=== PATIENT | male | born 1945 | race Caucasian/White ===

== ENCOUNTER 2019-04-16 14:54 | Outpatient (CLI) | payer MEDICARE, SELFPAY ==
--- NOTE | 2019-04-16 15:01 | XR_ITS ---
WS: [id number] LEFT KNEE: 3 VIEW(S) TECHNIQUE: AP, oblique(s) and lateral. HISTORY: PAIN IN LT KNEE COMPARISON: None available. No fracture or dislocation. Prior LEFT knee arthroplasty. No lucency around the arthroplasty. No joint effusion. No soft tissue abnormality. XR/XR knee LT 3V* [id number] IMPRESSION: Prior LEFT knee arthroplasty. No complications.
--- NOTE | 2019-04-16 15:01 | XR_ITS ---
WS: [id number] RIGHT KNEE: 3 VIEW(S) TECHNIQUE: AP, oblique(s) and lateral. HISTORY: PAIN IN RIGHT KNEE COMPARISON: None available. No fracture or dislocation. Mild narrowing of the medial compartment with small osteophytes. No joint effusion. No soft tissue abnormality. XR/XR knee RT 3V* [id number] IMPRESSION: Mild medial compartment osteoarthritis.
== END 2019-04-16 14:55 | disposition home or self-care (01) ==
PROVIDERS: Family Provider Physician Assistant; PCP Nurse Practitioner Family; Visit Provider Nurse Practitioner
DX: M17.11 Unilateral primary osteoarthritis, right knee (principal); Z96.652 Presence of left artificial knee joint
CPT/HCPCS: 73562

== ENCOUNTER 2019-07-12 12:18 | Outpatient (CLI) | payer MEDICARE, SELFPAY ==
[2019-07-12 12:48] LABS: Basophils # 0.1 10^3/uL (0.0-0.1); Basophils % 0.4 %; Eosinophils # 0.3 10^3/uL (0.0-0.8); Eosinophils % 1.7 %; Hematocrit 41.7 % (42.0-52.0); Hemoglobin 13.3 g/dL (11.7-16.6); Lymphocytes # 2.1 10^3/uL (0.8-4.8); Lymphocytes % 13.4 %; Mean Corpuscular HGB Conc 31.9 g/dL (30.0-36.0); Mean Corpuscular Hemoglobin 28.5 pg (28.0-34.0); Mean Corpuscular Volume 89.5 fL (80-94); Mean Platelet Volume 10.1 fL (7.4-10.4); Monocytes # 1.3 10^3/uL (0.2-0.9); Monocytes % 8.1 %; Neutrophils # 11.7 10^3/uL (1.8-7.7); Neutrophils % 75.8 %; Nucleated Red Blood Cells % 0 %; Platelet Count 336 10^3/cmm (130-400); Red Blood Count 4.66 10^6/uL (4.1-5.3); Red Cell Distribution Width 14.1 % (12.1-15.1); White Blood Count 15.4 10^3/uL (4.0-10.0)
[2019-07-12 13:01] LABS: Alanine Aminotransferase 23 U/L (0-41); Albumin Level 4.1 g/dL (3.5-5.2); Alkaline Phosphatase 71 IU/L (40-130); Aspartate Amino Transferase 26 U/L (0-40); Blood Urea Nitrogen 35 mg/dL (8-23); Carbon Dioxide 26 mmol/L (22-29); Chloride 98 mmol/L (98-107); Globulin 3.2 g/dL (1.3-4.6); Glucose 144 mg/dL (65-115); Osmolality Calculated 288 mOsm/kg (285-295); Sodium 139 mmol/L (136-145); Total Bilirubin 0.3 mg/dL (0.15-1.2); Total Protein 7.3 g/dL (6.6-8.7)
[2019-07-13 16:11] LABS: Alternaria Alternata (M6) Ige <0.10 kU/L; Alternaria Class 0; Bermuda Class 0; Bermuda Grass (G2) Ige <0.10 kU/L; Cat Dander (E1) Ige 0.16 kU/L; Cat Dander Class 0/1; Common Ragweed (Short) (W1) Ig 0.36 kU/L; D. Farinae Class 2; Dermatophagoides Class 1; Dermatophagoides Farinae (D2) 0.73 kU/L; Dermatophagoides Pteronyssinus 0.41 kU/L; Dog Dander (E5) Ige 0.43 kU/L; Dog Dander Class 1; Elm (T8) Ige <0.10 kU/L; Elm Class 0; English Plantain (W9) Ige <0.10 kU/L; English Plantain Class 0; House Dust (Greer) (H1) Ige <0.10 kU/L; House Dust (Hollister- Stier) 0.12 kU/L; House Dust Class 0; House Dust Class 0/1; Immunoglobulin E 381 kU/L (<OR=114); Immunoglobulin E 419 kU/L (<OR=114); Johnson Grass (G10) Ige <0.10 kU/L; Johnson Grass Cl 0; June Grass Class 0; June Grass(Kentucky Blue) (G8) <0.10 kU/L; Lamb'S Quarters (Goose Foot) <0.10 kU/L; Lamb'S Quarters Class 0; Maple (Box Elder) (T1) Ige <0.10 kU/L; Maple Class 0; Meadow Fescue (G4) Ige <0.10 kU/L; Meadow Fescue Class 0; Mucor Racemosus Class 0; Oak (T7) Ige <0.10 kU/L; Oak Class 0; Orchard Grass (Cocksfoot) (G3) <0.10 kU/L; Penicillium Class 0; Penicillium Notatum (M1) Ige <0.10 kU/L; Perennial Rye Grass (G5) Ige <0.10 kU/L; Perennial Rye Grass Class 0; Ragweeed Class 1; Rough Marsh Elder (W16) Ige <0.10 kU/L; Rough Marsh Elder Class 0; Sweet Vernal Class 0; Sweet Vernal Grass (G1) Ige <0.10 kU/L; Timothy Grass (G6) Ige <0.10 kU/L; Timothy Grass Class 0
[2019-07-16 16:17] LABS: Aspergillus Fumigatus, Igg Ab, 7.2 mg/L (<=102)
== END 2019-07-12 12:19 | disposition home or self-care (01) ==
PROVIDERS: Family Provider Physician Assistant; PCP Nurse Practitioner Family; Visit Provider Internal Medicine Critical Care Medicine
DX: J45.909 Unspecified asthma, uncomplicated (principal); R06.02 Shortness of breath
CPT/HCPCS: 36415; 80053; 82785; 85025; 86003

== ENCOUNTER 2019-07-20 09:50 | Outpatient (CLI) | payer MEDICARE, SELFPAY ==
--- NOTE | 2019-07-20 10:15 | CT_ITS ---
WS: [id number] CT CHEST TECHNIQUE: Noncontrast CT of the chest with coronal and sagittal reformatted images. CLINICAL INFORMATION: Shortness of breath COMPARISON: None. DLP: 1089.[address] scans at [facility] use at least one of these dose optimization techniques: automat ed exposure control; mA and/or kV adjustment per patient size (includes targeted exams where dose is matched to clinical indication); or iterative reconstruction. FINDINGS: Mild chronic emphysematous changes. No acute pulmonary infiltrates. No consolidation or pleural fluid . Slight atelectasis in the lung bases. 4 mm noncalcified NODULE IN THE RIGHT MIDDLE LOBE. Small amou nt of fibrosis posterior medially in the lower lobes. Calcified granuloma left lower lobe. No mediastinal or hilar lymphadenopathy. Aortic calcification. Coronary calcification. Mild diffuse f atty infiltration of the liver. Normal GE junction. Adrenal glands are normal. Bilateral renal cortic al atrophy. No axillary lymphadenopathy. Hypertrophic changes thoracic spine. CT/CT chest wo con [id number] IMPRESSION: 1. Mild chronic emphysematous changes. No acute pulmonary infiltrates. 2. Noncalcified 4 mm nodule right middle lobe. Recommend 6 month follow-up. 3. No mediastinal or hilar lymphadenopathy.
== END 2019-07-20 09:51 | disposition home or self-care (01) ==
PROVIDERS: Family Provider Nurse Practitioner Family; PCP Nurse Practitioner Family; Visit Provider Internal Medicine Critical Care Medicine
DX: R06.02 Shortness of breath (principal); R91.1 Solitary pulmonary nodule
CPT/HCPCS: 71250

== ENCOUNTER 2020-06-25 14:17 | Outpatient (CLI) | payer MEDICARE, SELFPAY ==
--- NOTE | 2020-06-25 15:21 | MR_ITS ---
WS: [id number] MRI RIGHT SHOULDER HISTORY: PAIN IN RIGHT SHOULDER COMPARISON: Radiograph 05/07/2020 TECHNIQUE: Multiplanar sequences of the shoulder joint are submitted. Severe soft tissue in hypertrophic bone changes at the AC joint with encroachment upon the supraspina tus muscle and tendon. There is a large amount of edema surrounding the AC joint and through the AC l igament. No os acromion. There is a small osseous fragment at the AC joint which is well-corticated. Biceps tendon is not identified at the bicipital groove. Large full-thickness rotator cuff tendon tears involving the supraspinatus, infraspinatus and subscap ularis tendons. There is marked muscle atrophy without edema in the muscles. Most significant involve ment of the supraspinatus and infraspinatus muscles. There is a large amount of fluid in the subscapu autumn and subcoracoid bursa. Humeral head is high riding abutting the undersurface of the acromion. There is a large soft tissue defect filled with edema extending from the AC joint or torn rotator cuf f to the glenoid. Torn coracohumeral ligament. There is a large amount of soft tissue edema extending into the muscles and soft tissues of the proximal humerus along the biceps muscle. Loss of cartilage over the humeral head with thinning of the cartilage. Abnormal signal within the la rene probably degenerative in etiology. MR/MR shoulder RT wo con* [id number] IMPRESSION: 1. Complete full-thickness tears involving the supraspinatus and infraspinatus tendons with edema and atrophy. 2. Large amount of fluid in the subscapularis recess and subcoracoid bursa. Matthews bscapularis tendon may be intact. 3. Biceps tendon not identified in the bicipital groove. Probably torn and ret racted. 4. High riding humeral head. 5. Severe AC joint arthritis. 6. Acute soft tissue defect extending from the AC joint inferiorly through the rotator cuff to the humeral head is probably posttraumatic soft tissue injury with extensive involvement of the rotator cuff and adjacent soft tissues. 7. Diffuse abnormal labrum. 8. Large amount of edema and soft tissue injury involving the proximal humerus along the biceps muscle.
== END 2020-06-25 14:18 | disposition home or self-care (01) ==
PROVIDERS: PCP Nurse Practitioner Family; Visit Provider Orthopaedic Surgery
DX: R60.0 Localized edema (principal); M75.121 Complete rotator cuff tear or rupture of right shoulder, not specified as traumatic; M13.811 Other specified arthritis, right shoulder
CPT/HCPCS: 73221

== ENCOUNTER → 2020-07-09 06:32 | Day surgery (SDC) | payer MEDICARE, SELFPAY | PROVIDERS: PCP Nurse Practitioner Family; Visit Provider Orthopaedic Surgery | DX: Z01.818 Encounter for other preprocedural examination (principal); M67.911 Unspecified disorder of synovium and tendon, right shoulder | CPT/HCPCS: 93005 ==

== ENCOUNTER 2020-07-09 09:09 | Outpatient (CLI) | payer MEDICARE, SELFPAY ==
--- NOTE | 2020-07-09 09:23 | CT_ITS ---
WS: [id number] NONCONTRAST CT OF THE RIGHT SHOULDER TECHNIQUE: Noncontrast CT of the right shoulder with coronal and sagittal reformatted images. CLINICAL INFORMATION: M75.101 - Unspecified rotator cuff tear or rupture of rig... COMPARISON: MRI June 24, 2020 DLP: [address] scans at [facility] use at least one of these dose optimization techniques: automat ed exposure control; mA and/or kV adjustment per patient size (includes targeted exams where dose is matched to clinical indication); or iterative reconstruction. FINDINGS: Normal anatomic alignment. No acute fractures. Moderate degenerative arthritis AC joint with loss of the subacromial space. Moderate narrowing at the glenohumeral articulation. Humeral head and neck are normal without acute fracture. Normal scapula. Normal glenoid. No dislocation. Distal clavicle is no rmal in appearance. Persistent soft tissue edema about the glenohumeral joint with small joint effusion. High-grade full- thickness tears involving the supraspinatus and infraspinatus as described on the recent MRI. Biceps tendon absent from the bicipital groove likely torn. Humeral shaft is normal in appearance. Visualized right ribs are normal in appearance. Emphysematous changes in the partially visualized rig ht lung. CT/CT shoulder RT wo con* [id number] IMPRESSION: 1. No visualized fractures. 2. Degenerative arthritis AC joint with loss of subacromial space. 3. Full-thickness tears involving the supraspinatus and infraspinatus as descr ibed on the recent MRI. 4. Biceps tendon absent from the bicipital groove. 5. Normal bony scapula and glenoid. 6. Persistent soft tissue edema about the shoulder capsule with small joint ef fusion.
== END 2020-07-09 09:10 | disposition home or self-care (01) ==
PROVIDERS: PCP Nurse Practitioner Family; Visit Provider Orthopaedic Surgery
DX: M75.101 Unspecified rotator cuff tear or rupture of right shoulder, not specified as traumatic (principal); M19.011 Primary osteoarthritis, right shoulder; Z20.822 Contact with and (suspected) exposure to COVID-19
CPT/HCPCS: 73200; 87635

== ENCOUNTER 2020-07-15 13:18 | Inpatient (IN) | payer MEDICARE, SELFPAY ==
[2020-07-09 08:20] VITALS: BMI 34.2
--- NOTE | 2020-07-09 08:37 | ECG_ITS ---
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 Measurements Intervals [place] Rate: 74 P: 9 AL: 144 QRS: -29 QRSD: 96 T: 69 QT: 379 QTc: 421 Interpretive Statements SINUS RHYTHM BORDERLINE LEFT AXIS DEVIATION [QRS AXIS < -20] No previous ECG available for comparison Electronically Signed On 07-13-2020 12:26:41 CDT by Yara Pruitt M.D. [id number]
--- NOTE | 2020-07-09 09:41 | ANES.PREANE2 ---
Pre-Anesthetic Assessment Pre-Anesthetic Assessment: Height/Weight: Height 1.73 m Weight 102.058 kg Preop Diagnosis: Right rotator cuff tear Proposed Procedure: Operation Date: 07/15/20 07:00 Proposed Procedures p Total Reverse Shoulder Arthroplasty 59874 M75.101(Right) - Sebastian Taylor MD Was Beta Erica taken within 24 hours: N/A Was Clonidine taken within 24 hours: N/A Social: Social History: No alcohol and No tobacco Exam: Pre-Anes Outpt Exam: alert, oriented x 3, clear to auscultation bilaterally and regular rate & rhythm Airway: Submandibular: WNL Cervical ROM: WNL MP: 2 Pulmonary: Pulmonary: COPD CV/HEM: CV/HEM: HTN GI: GI: GERD Metabolic: Metabolic: Morbid obesity and Thyroid Anesthetic Plan: ASA status: 3 Anesthesia: General and Regional (specify below) (Interscalene nerve blk) Risk of > 500 ml blood loss (7ml/kg in children): No PFSH Anesthesia PFSH: Medical History Asthma Carotid artery disease CKD (chronic kidney disease) Colon polyps Gout HTN (hypertension) Hypothyroidism Prostate cancer Type 2 diabetes mellitus Surgical History H/O hand surgery H/O prostatectomy H/O shoulder surgery History of knee replacement Hx of cataract surgery Family History Father Heart disease Social History Smoking and tobacco status: former smoker Quit status (tobacco): has quit using tobacco Year quit tobacco: 2018 - 0.5 PPD x 15 Years Alcohol intake: current Alcohol intake frequency: 0-2 Drinks per Day Alcohol type: hard liquor Lives independently: Yes Household members: spouse Marital status: service: No Current occupational status: retired History of recent travel: No Current gender identity: Male Data Anesthesia Cardiac Studies: No Data to Display
[2020-07-15] VITALS (22 sets, daily range): BP systolic 124–208; BP diastolic 62–96; PULSE 65–84; RESP 14–19; TEMP 36.1–36.9; O2SAT 92–99
[2020-07-15] MEDS: acetaminophen 500 mg Tablet 1000 MG PO ×2 (08:16→17:56)
[2020-07-15] MEDS: oxyCODONE 20 mg ER (12 HR) Tablet PO (08:16)
[2020-07-15] MEDS: gabapentin 300 mg Capsule PO (08:16)
[2020-07-15] MEDS: CELEcoxib 200 mg Capsule 400 MG PO (08:16)
[2020-07-15] MEDS: sodium chloride 0.9% 1,000 ML 30 ML IV (08:19)
--- NOTE | 2020-07-15 08:39 | P.ANESUD_ITS ---
Pre-Anesthetic Update Pre-Anesthetic Assessment: Date of Surgery/Procedure: 07/15/20 Preop Raisa gnosis: Right rotator cuff tear Proposed Procedure: Operation Date: 07/15/20 09:00 Proposed Procedures p Total Reverse Shoulder Arthroplasty 61549 M75.101(Right) - Sebastian Taylor MD Any changes to Pre-Anesthetic Assessment?: No Last Intake: Intake Last Liquid Date 07/14/20 Last Liquid Time 17:00 Last Solid Date 07/14/20 Last Solid Time 17:00 Vitals: Temperature 98.3 F 07/15/20 07:59 Temperature Source Tympanic 07/15/20 07:59 Pulse Rate 79 07/15/20 07:59 Pulse Rhythm 07/15/20 07:49 Pulse Strength 3+ Normal 07/15/20 07:49 Respiratory Rate 18 07/15/20 07:59 Blood Pressure 166/92 07/15/20 07:59 Blood Pressure Isabel n 116 07/15/20 07:59 Pulse Oximetry 98 07/15/20 07:59 Oxygen Delivery Me thod 07/15/20 07:59 Exam: Pre-Anes Outpt Exam: alert, oriented x 3, clear to auscultation bilaterally and regular rate & rhythm Cardiac Studies: No Data to Display
--- NOTE | 2020-07-15 08:39 | ANES.PROC ---
Anesthesia Procedures Procedure/Date: 07/15/20 Nerve Block ^: Nerve Block 1: Main Anesthesia: general anesthesia Time Out Performed: Yes Consent: requested by attending/covering physician, from patient, risks and benefits reviewed and patient agrees to proceed Nerve block location: interscalene (R) Anesthesia monitors applied: pulse oximetry, BP cuff and oxygen Nerve block position: semi sitting Anesthetic Used: ropivicaine 0.5% and with decadron (4 mg) Amount of anesthesia used (mL): 20 Ultrasound used to: recognize landmarks, visualize and ID brachial plexus and visualize and ID interscalene groove Nerve Stimulator Used?: No Interscalene/Femoral BLK: other needle (2 payuk used for position and in plane approach), visualize local anesthetic spread and no vascular puncture identified Injection: neg aspiration of heme Patient Tolerated Procedure: well and no complications Complications: none
--- NOTE | 2020-07-15 09:47 | W.PM.OPSUD ---
Surgery/Procedure H&P Update DATE OF PROCEDURE: July 15, 2020 DATE H&P PERFORMED: 06/30/20 PREOP DIAGNOSIS: Right rotator cuff tear PLANNED PROCEDURE: Operation Date: 07/15/20 09:00 Proposed Procedures p Total Reverse Shoulder Arthroplasty 41060 M75.101(Right) - Sebastian Taylor MD
[2020-07-15] MEDS: tranexamic acid 1,000 mg/10mL SDV 1000 MG IRRIGATION (10:42)
--- NOTE | 2020-07-15 12:42 | PM.OP ---
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 The patient was taken to the operating room and given a general anesthesia. They were given 2 g of Ancef. A Gill stand was covered and use to support support the arm A timeout was performed. A 10 cm long incision was made over the deltopectoral groove and dissection carried out with a scalpel blade to the deltopectoral interval. The cephalic vein was identified and retracted laterally. The biceps was secured with 2 Ethibond sutures to the pectoralis muscle and then divided just proximal with electrocautery. Digital dissection was accomplished to free lesions beneath the deltoid and beneath the coracobrachialis musculature. An Robert medium tissue protector was used to retract the pectoralis major and the deltoid. Utilizing cautery the subscapularis was released using the remaining biceps stump as a guide anteriorly in full-thickness with the capsule and freed distally at the level of the anterior humeral circumflex vessels. The glenohumeral joint include bending externally rotated and dislocated anteriorly. A freehand cut was made with the saw at the level of the articular cartilage with approximately 30 degrees of retroversion. The proximal humerus was then broached and prepared for a 5 Aequalis Ascend Flex humal stem and covered with a protective plate.. Utilizing electrocautery the glenoid was exposed circumferentially. The centering guide was used to place the central guidepin and the glenoid ream down to sclerotic bone. The pin was placed in slight inferior angulation to remove approximately 5 degrees of inferior glenoid bone. A 29 mm Tornier Aequalis PerFORM REversed glenoid baseplate was then secured in place with a central 40 mm screw, a superior locking 34 mm screw, an inferior locking 30 mm screw, an anterior 22 mm screw and a posterior 264mm screw. A standard 42 mm Aequalis perFORM ReversedGlenosphere was then placed. A trial reduction with a 42 mm reversed insert provided adequate stability. The final size 7 Aequalis Awscend Flex humal stem was press-fit into place with a 0mm reversed tray. The Flex Shoulder system 42 mm +6 mm insert was placed and the shoulder reduced with a stable reduction. The subscapularis was secured with the 3 locking ultratape sutures through the tendon that were passed through 4 drill holes from the bicipital groove exiting the greater tuberosity. The sutures were then brought through a 4-hole mini frag plate on the tuberosity and secured which tightly laura the subscapularis over the lesser tuberosity with the arm held in 30 degrees of external rotation. The sutures were then doubled over in a free needle back through the tendon. The wound was irrigated with a solution of 100 cc of saline with 1 g of tranexamic acid and 80 mg of gentamicin. The deltopectoral interval was closed with 0 Vicryl. The subcutaneous tissues were closed with 2-0 Stratafix. The skin was closed with a running 4-0 Stratafix. Sterile dressings were applied. The patient was placed in a sling extubated and taken to recovery room in stable condition. 1) Tornier Aequalis Ascend Flex 5 stem 2) Flex Shoulder System reversed tray +0mm 3) Flex Shoulder System 42 mm +6 mm reversed insert 4) Aequalis PerFORM Reversed 29 standard baseplate 5) Aequalis perForm Reversed 42 mm standard glenosphere 6) Glenoid screws: central 40 mm, superior 34 mm inferior 30 mm, anterior 22 mm, posterior 26 mm
--- NOTE | 2020-07-15 12:59 | XRR_ITS ---
PROCEDURE INFORMATION: Exam: XR Right Shoulder Exam date and time: 07/15/2020 1:03 PM Age: 75 years old Clinical indication: Device placement; Other: Right tsa; Prior surgery; Surgery date: Post-operative (0-2 days) TECHNIQUE: Imaging protocol: XR Right shoulder. Views: 2 or more views. COMPARISON: CT shoulder RT wo con* [id number] 07/09/2020 10:11 AM FINDINGS: Bones/joints: Metallic arthroplasty is in place in good position. Soft tissues: Subcutaneous emphysema is seen and edema consistent with postsurgical soft tissue changes. XR/XR shoulder RT min 2V* [id number] IMPRESSION: 1. Metallic arthroplasty in good position 2. Postsurgical soft tissue changes right shoulder 3. Otherwise negative for acute abnormality.
[2020-07-15] MEDS: hyDRALAzine 20 mg/mL INJ 1 mL 5 MG IVP ×3 (13:07→13:35)
[2020-07-15] MEDS: sodium chloride 0.9% 1,000 ML 80 ML IV (14:24)
[2020-07-15] MEDS: sodium bicarbonate 650 mg Tablet PO ×2 (14:24→20:58)
--- NOTE | 2020-07-15 14:31 | ANE.PACU2 ---
Inpatient post-anesthesia follow up: Airway intact: Yes Vital signs: Temperature 97.6 F Pulse Rate 74 Respiratory Rate 18 Blood Pressure 138/63 Pulse Oximetry 94 Oxygen Delivery Me thod Nasal Cannula Oxygen Flow Rate 2 Fraction of Inspir ed Oxygen Hydration adequate: Yes Nausea and vomiting: No Pain level: 1 Mental status: Baseline
[2020-07-15] MEDS: lisinopril 10 mg Tablet PO (17:56)
[2020-07-15] MEDS: CELEcoxib 200 mg Capsule PO (17:56)
[2020-07-15] MEDS: ceFAZolin 1,000 MG in sodium chloride 0.9% (plus) 50 ML 100 MG IV (17:56)
[2020-07-15] MEDS: TRAMadol 50 mg Tablet 100 MG PO (17:56)
[2020-07-16] VITALS: BP 156/75; PULSE 77; RESP 18; TEMP 36.9; O2SAT 95
[2020-07-16] MEDS: acetaminophen 500 mg Tablet 1000 MG PO (00:45)
[2020-07-16] MEDS: ceFAZolin 1,000 MG in sodium chloride 0.9% (plus) 50 ML 100 MG IV (01:41)
[2020-07-16] MEDS: sodium chloride 0.9% 1,000 ML 80 ML IV (03:17)
[2020-07-16 03:28] VITALS: BP 144/74; PULSE 77; RESP 18; TEMP 36.7; O2SAT 95
--- NOTE | 2020-07-16 07:51 | PM.DCS ---
Discharge Providers Date of Admission: 07/15/20 13:18 Date of Discharge: July 16, 2020 Attending Provider at Admission: Sebastian Taylor MD Attending Provider at Discharge: Sebastian Taylor MD Primary Care Provider: TAI Perez Reason for Visit Reason for Visit: right rototar cuff Hospital Course Hospital Course Mr. Lynch underwent elective right reverse total shoulder arthroplasty for an ear repairable tear of the rotator cuff with chronic pain and weakness. He tolerated the procedure well. By the first postoperative day his pain was controlled with oral medications. He was discharged home on the first postoperative day. He will be given aspirin for DVT prophylaxis. We will set him up with outpatient physical therapy for range of motion. Physical Exam Narrative: EXAM NARRATIVE: On the day of discharge the incision was clean and free of drainage. The patient could fire their deltoid and biceps. No distal neurovascular deficits were noted Discharge Data Data Completed and Pending: Completed Studies During Hospitalization Category Date Time Status XR shoulder RT mi n 2V* [id number] Routin e Exams 07/15/20 12:59 Completed Vitals: Last Vital Signs Temp 98.1 F 07/16/20 03:28 Pulse 77 07/16/20 03:28 Resp 18 07/16/20 03:28 BP 144/74 07/16/20 03:28 Pulse Ox 95 07/16/20 03:28 Discharge Plan Discharge Patient Disposition: Home Condition: Stable Prescriptions: New oxycodone 5 mg Tablet 5 - 10 mg PO Q4H PRN (Reason: Moderate To Severe Pain) 7 Days Qty: 40 RF: 0 acetaminophen 500 mg Tablet 1,000 mg PO Q8H 14 Days Qty: 84 RF: 0 aspirin 325 mg Tablet,Delayed Release (Dr/Ec) 325 mg PO DAILY 30 Days Qty: 30 RF: 0 celecoxib 200 mg Capsule 200 mg PO BID 15 Days Qty: 30 RF: 0 Continued lisinopril 10 mg tablet 10 mg PO BID RF: 0 duloxetine 30 mg capsule, delayed rel sprinkle 30 mg PO DAILY RF: 0 pravastatin 80 mg tablet 80 mg PO DAILY RF: 0 levothyroxine 50 mcg capsule 50 mcg PO DAILY RF: 0 amlodipine 5 mg tablet 10 mg PO DAILY RF: 0 albuterol sulfate [ProAir HFA] 90 mcg/actuation HFA aerosol inhaler 2 puff INHALATION Q6H PRN (Reason: Shortness Of Breath) RF: 0 budesonide-formoterol [Symbicort] 160-4.5 mcg/actuation HFA aerosol inhaler 2 puff INHALATION BID RF: 0 tramadol 50 mg tablet 100 mg PO BID RF: 0 sodium bicarbonate 650 mg tablet 650 mg PO TID RF: 0 omeprazole 20 mg capsule,delayed release(DR/EC) 20 mg PO DAILY RF: 0 Discharge Orders: Discharge Order (Routine); Ordered 07/16/20 Ordered By: Sebastian Taylor Other Ambulatory Orders: Occupational Therapy Eval and Treat Outpatient (Order) Timeframe: 2 Days Facility: [facility] - Location: Occupational Therapy Ordered By: Sebastian Taylor Discharge Diet: Advance as tolerated Discharge Activity: Limit activity as instructed Patient Instructions: Opioid Safety Activity Restrictions/Additional Instructions: May remove shoulder dressing in 48 hours and applied Band-Aids as necessary May shower once incisions free of drainage. Leave arm in sling/immobilizer at all times except when showering or performing exercises. Avoiding any active use of the left shoulder. May remove sling for exercises Pendulum exercises to shoulder Active range of motion to elbow wrist and hand No active range of motion shoulder Take Celebrex twice a day for the next 15 days for pain , discontinue other anti-inflammatories Take Tylenol 500mg (up to 2 tabs) 3 times a day for mild pain take oxycodone for breakthrough pain. Discharge Attestations Time Spent in Discharge Care*: less than 30 min Quality Metrics Clinical Quality Measures During this hospital stay, did patient experience: None Coding Level of Care Code Acute [facility] note
[2020-07-16 08:00] VITALS: BP 96/57; PULSE 88; RESP 18; TEMP 36.8; O2SAT 95
--- NOTE | 2020-07-16 09:49 | PC.NURSE ---
Discharge instructions given to patient, went over instructions, all questions answered. IV catheter removed, tip intact. Patient tolerated well. Patient discharged at this time in the care of his in stable condition.
[2020-07-16 09:50] VITALS: BP 96/57; PULSE 88; RESP 18; TEMP 36.8; O2SAT 95
== END 2020-07-16 09:51 | disposition home or self-care (01) | DRG 483 ==
LOC: MEDSURG 07-16 07:46
PROVIDERS: Admitting Provider Orthopaedic Surgery; PCP Nurse Practitioner Family; Visit Provider Orthopaedic Surgery
PROC: 0RRJ00Z Replacement of Right Shoulder Joint with Reverse Ball and Socket Synthetic Substitute, Open Approach (ICD-10-PCS; CPT 23472; principal; 2020-07-15 09:00)
DX: M75.121 Complete rotator cuff tear or rupture of right shoulder, not specified as traumatic (principal); J44.9 Chronic obstructive pulmonary disease, unspecified; I25.10 Atherosclerotic heart disease of native coronary artery without angina pectoris; E11.22 Type 2 diabetes mellitus with diabetic chronic kidney disease; I12.9 Hypertensive chronic kidney disease with stage 1 through stage 4 chronic kidney disease, or unspecified chronic kidney disease; N18.9 Chronic kidney disease, unspecified; E03.9 Hypothyroidism, unspecified; K21.9 Gastro-esophageal reflux disease without esophagitis; E66.01 Morbid (severe) obesity due to excess calories; Z68.34 Body mass index [BMI] 34.0-34.9, adult; Z87.891 Personal history of nicotine dependence; Z90.79 Acquired absence of other genital organ(s); Z96.659 Presence of unspecified artificial knee joint; Z96.612 Presence of left artificial shoulder joint; Z85.46 Personal history of malignant neoplasm of prostate
CPT/HCPCS: 64415; 73030; 76942; 97165; C1713; C1776; G0378; J0360; J0690; J1100; J1580; J2370; J2704; J2795; J3010; J3490; J7030

== ENCOUNTER 2020-07-17 14:12 | Outpatient (RCR) | payer MEDICARE, SELFPAY | END 2020-08-04 23:59 | disposition home or self-care (01) | LOC: SPT 14:12 | PROVIDERS: PCP Nurse Practitioner Family; Referring Provider Orthopaedic Surgery; Visit Provider Orthopaedic Surgery | DX: Z47.89 Encounter for other orthopedic aftercare (principal) | CPT/HCPCS: 97110; 97161 ==

== ENCOUNTER → 2020-08-20 09:45 | Outpatient (BNVA) | payer MEDICARE, SELFPAY | PROVIDERS: PCP Nurse Practitioner Family; Visit Provider Orthopaedic Surgery | DX: Z01.812 Encounter for preprocedural laboratory examination (principal); Z48.89 Encounter for other specified surgical aftercare; Z20.822 Contact with and (suspected) exposure to COVID-19 | CPT/HCPCS: 73030; 87635 ==

== ENCOUNTER 2020-08-21 11:58 | Day surgery (SDC) | payer MEDICARE, SELFPAY ==
[2020-08-20 17:27] VITALS: BMI 33.3
[2020-08-21] VITALS (9 sets, daily range): BP systolic 149–179; BP diastolic 82–110; PULSE 71–90; RESP 18–22; TEMP 36.6–37; O2SAT 92–98
--- NOTE | 2020-08-21 | XR_ITS ---
WS: [id number] Exam: XR shoulder RT min 2V* [id number] Date/Time of Exam: 08/21/2020 12:00 AM Reason For Exam: POST REDUCTION W/ FLUORO Comparison 08/20/2020. Intraoperative C-arm images of the right shoulder are submitted for evaluation. Previously noted dislocated reverse shoulder prosthesis has been reduced. No acute fracture is seen. XR/XR shoulder RT min 2V* [id number] IMPRESSION: 1. Previously noted dislocated right shoulder prosthesis appears to have been r educed. No fractures are identified
--- NOTE | 2020-08-21 | SCC_ITS ---
Procedure Done: closed Reduction right glenohumeral joint 3 seconds of fluoroscopic guidance, for a cumulative dose of 1.9 mGy, was provided to Dr. Taylor by the radiology department. C-arm images of the RIGHT shoulder were saved for the patient's permanent record. MOISES
[2020-08-21] MEDS: oxyCODONE 20 mg ER (12 HR) Tablet PO (12:35)
[2020-08-21] MEDS: acetaminophen 500 mg Tablet 1000 MG PO (12:35)
[2020-08-21] MEDS: CELEcoxib 200 mg Capsule 400 MG PO (12:35)
[2020-08-21] MEDS: sodium chloride 0.9% 1,000 ML 30 ML IV (12:35)
[2020-08-21] MEDS: gabapentin 300 mg Capsule PO (12:35)
[2020-08-21] MEDS: midazolam 1 mg/mL INJ 2 mL 2 MG IVP (12:45)
--- NOTE | 2020-08-21 13:04 | W.PM.OPSUD ---
Surgery/Procedure H&P Update DATE OF PROCEDURE: August 21, 2020 DATE H&P PERFORMED: 08/20/20 H&P UPDATE INFORMATION: I have reviewed H&P completed within last 30 days PREOP DIAGNOSIS: Dislocated right reverse total shoulder PLANNED PROCEDURE: Operation Date: 08/21/20 13:40 Proposed Procedures p Closed Reduction Shoulder versus open reduction 32494 Z96.619(Right) - Sebastian Taylor MD s Total Reverse Shoulder Arthroplasty(Right) - Sebastian Taylor MD
--- NOTE | 2020-08-21 13:26 | ANES.PREANE2 ---
Pre-Anesthetic Assessment Pre-Anesthetic Assessment: Height/Weight: Height 1.73 m Weight 99.337 kg Temp Pulse Resp BP Pulse Ox 98.0 F 83 18 151/86 98 08/21/20 12:24 08/21/20 12:24 08/21/20 12:24 08/21/20 12:24 08/21/20 12:24 Preop Diagnosis: Dislocated right reverse total shoulder Proposed Procedure: Operation Date: 08/21/20 13:40 Proposed Procedures p Closed Reduction Shoulder versus open reduction 13010 Z96.619(Right) - Sebastian Taylor MD s Total Reverse Shoulder Arthroplasty(Right) - Sebastian Taylor MD Was Beta Erica taken within 24 hours: N/A Was Clonidine taken within 24 hours: N/A Last intake: Intake Last Liquid Date 08/21/20 Last Liquid Time 23:00 Last Solid Date 08/20/20 Last Solid Time 20:00 Social: Social History: No alcohol and No tobacco Exam: Pre-Anes Outpt Exam: alert, oriented x 3, clear to auscultation bilaterally and regular rate & rhythm Airway: Submandibular: WNL Cervical ROM: Other (limited) MP: 3 Dentition: False CV/HEM: CV/HEM: CAD, HTN and PVD : : Chronic renal Insufficiency Metabolic: Metabolic: Morbid obesity and Thyroid Anesthetic Plan: ASA status: 3 Anesthesia: General and Regional (specify below) (right interscalene blk) Risk of > 500 ml blood loss (7ml/kg in children): No Meds/Allergies Current Medications: Current Medications Generic Name Dose Route Start Last Admin Trade Name Freq PRN Reason Stop Dose Admin Sodium Chloride 1,000 mls @ 30 ml s/hr 08/21/20 12:15 08/21/20 12:35 Sodium Chloride 0.9% IV 08/22/20 12:14 30 mls/hr .Q24H MANDO Administration PFSH Anesthesia PFSH: Medical History Asthma Carotid artery disease CKD (chronic kidney disease) Colon polyps Gout HTN (hypertension) Hypothyroidism Prostate cancer Type 2 diabetes mellitus Surgical History H/O hand surgery H/O prostatectomy H/O shoulder surgery History of knee replacement Hx of cataract surgery Family History Father Heart disease Social History Smoking and tobacco status: former smoker Quit status (tobacco): has quit using tobacco Year quit tobacco: 2018 - 0.5 PPD x 15 Years Alcohol intake: current Alcohol intake frequency: 0-2 Drinks per Day Alcohol type: hard liquor Lives independently: Yes Household members: spouse Marital status: service: No Current occupational status: retired History of recent travel: No Current gender identity: Male Data Anesthesia Cardiac Studies: No Data to Display
--- NOTE | 2020-08-21 13:34 | ANES.PROC ---
Anesthesia Procedures Procedure/Date: 08/21/20 Nerve Block ^: Nerve Block 1: Main Anesthesia: general anesthesia Time Out Performed: Yes Consent: requested by attending/covering physician, from patient, risks and benefits reviewed and patient agrees to proceed Nerve block location: interscalene (right) Anesthesia monitors applied: pulse oximetry, EKG, BP cuff and oxygen Nerve block position: semi sitting Anesthetic Used: ropivicaine 0.5% Amount of anesthesia used (mL): 30 Nerve Stimulator Used?: No Interscalene/Femoral BLK: 2 stimuplex 22 g needle used for position and inplane approach and visualize local anesthetic spread Injection: neg aspiration of heme and paresthesia +/- Patient Tolerated Procedure: well Complications: none
--- NOTE | 2020-08-21 13:44 | PM.OP ---
Operative Report Date of procedure: August 21, 2020 Pre-op Diagnosis: Dislocated right reverse total shoulder Post-op diagnosis: same Post-op Findings: Same Procedure Done: closed eduction right glenohumeral joint Surgeon: Sebastian Taylor Anesthesia: General Estimated blood loss (mL): 0 Findings: The patient had a dislocation of the right reverse total shoulder with anterior and superior displacement of the humeral head to the glenoid Condition: stable Disposition: PACU Procedure: The patient was taken to the operating room after interscalene block. He was given 2 g of Ancef. General anesthesia was provided by the anesthesia service. A timeout was performed. With complete muscle relaxation longitudinal traction was applied across the arm with a lateral and inferiorly directed force across the proximal humerus. The humeral head was felt to reduced in the glenoid. Intraoperative imaging showed reduction of the humeral head. The patient displayed motion to 110 degrees of flexion 30degrees external rotation and abduction and internal rotation of the right shoulder without instability. He was placed in an immobilizer, extubated, and taken recovery room in stable condition.
--- NOTE | 2020-08-21 14:52 | ANE.PACU2 ---
Inpatient post-anesthesia follow up: Airway intact: Yes Vital signs: Temperature 98.6 F Pulse Rate 71 Respiratory Rate 18 Blood Pressure 152/82 Pulse Oximetry 95 Oxygen Delivery Me thod Room Air Oxygen Flow Rate 2 Fraction of Inspir ed Oxygen Hydration adequate: Yes Nausea and vomiting: No Pain level: 1 Mental status: Baseline
== END 2020-08-21 14:54 | disposition home or self-care (01) ==
PROVIDERS: PCP Nurse Practitioner Family; Visit Provider Orthopaedic Surgery
PROC: (CPT 23650; principal; 2020-08-21 12:55)
DX: S43.004A Unspecified dislocation of right shoulder joint, initial encounter (principal); X58.XXXA Exposure to other specified factors, initial encounter; I25.10 Atherosclerotic heart disease of native coronary artery without angina pectoris; E66.01 Morbid (severe) obesity due to excess calories; Z68.33 Body mass index [BMI] 33.0-33.9, adult; J45.909 Unspecified asthma, uncomplicated; E03.9 Hypothyroidism, unspecified; Z85.46 Personal history of malignant neoplasm of prostate; E11.22 Type 2 diabetes mellitus with diabetic chronic kidney disease; I12.9 Hypertensive chronic kidney disease with stage 1 through stage 4 chronic kidney disease, or unspecified chronic kidney disease; N18.9 Chronic kidney disease, unspecified; Z87.891 Personal history of nicotine dependence
CPT/HCPCS: 23650; 64415; 73030; 76000; 76942; J0330; J0690; J2250; J2704; J2795; J3010; J3490; J7030

== ENCOUNTER → 2020-09-17 13:44 | Outpatient (BNVA) | payer MEDICARE, SELFPAY | PROVIDERS: PCP Nurse Practitioner Family; Visit Provider Orthopaedic Surgery | DX: Z48.89 Encounter for other specified surgical aftercare (principal) | CPT/HCPCS: 73020 ==

== ENCOUNTER → 2020-10-22 10:03 | Outpatient (BNVA) | payer MEDICARE, SELFPAY | PROVIDERS: PCP Nurse Practitioner Family; Visit Provider Orthopaedic Surgery | DX: Z48.89 Encounter for other specified surgical aftercare (principal); M67.911 Unspecified disorder of synovium and tendon, right shoulder; S43.401A Unspecified sprain of right shoulder joint, initial encounter; Z98.890 Other specified postprocedural states; Z96.611 Presence of right artificial shoulder joint; X58.XXXA Exposure to other specified factors, initial encounter | CPT/HCPCS: 73030 ==

== ENCOUNTER 2021-05-04 08:54 | Outpatient (CLI) | payer MEDICARE, SELFPAY ==
[2021-05-04 09:56] VITALS: BMI 34.7
--- NOTE | 2021-05-04 10:07 | ECG_ITS ---
[facility] Test Date: 2021-05-04 Pat Name: Matt Tran Department: Room: Gender: Male A Auxiliary: Deborah Beckett : 1945 Requested By: Myranda Mccartney Order Number: [id number] Johnny MD: Myranda Mccartney M.D. Interpretive Statements NAME OF STUDY: LEXISCAN SESTAMIBI STRESS TEST INDICATION: Shortness of Breath, PROCEDURE: At the baseline, the EKG revealed normal sinus rhythm with normal ST Ts. The baseline blood pressure was 155/89 mm Hg with a heart rate of 89 beats/min. Lexiscan was infused over a period of 20 seconds. A total of 0.4 milligrams of Lexiscan was infused. The stress phase was continued for a total of 5 minutes. Heart rate at the end of the stress phase was 101 with a blood pressure 128/70. The EKG at the peak infusion revealed no significant changes. Sestamibi was injected 20 seconds after the Lexiscan infusion. Blood pressure at the end of the recovery phase was 125/70 with a heart rate of 96 per minute. CONCLUSION: 1. No significant EKG changes with the LexiScan infusion 2. No LexiScan induced chest pain or cardiac arrhythmia 3. Normal blood pressure and heart rate response 4. Sestamibi/sestamibi perfusion scan pending; see separate report. Electronically Signed On 05-08-2021 19:20:20 [employer] by Myranda Mccartney M.D. [id number]
--- NOTE | 2021-05-04 10:07 | NMCV_ITS ---
NM michael perf SPECT r/s* [id number] Matt Tran Age: 76 Gender: M : 1945 Exam Date: 05/04/2021 11:05 Ordering Phys: Myranda Mccartney MD ([email or web address]) Technologist: DEION Aguilar Exam Location: [facility] Indications: SHORTNESS OF BREATH STRESS TEST [facility] IMAGE PROTOCOL Rest/Stress 1 Lexiscan Day Radiopharmaceutical Dose (mCi) Administration Site Administered by Rest: Tc-99m 11.0 IV DEION Aguilar Sestamibi Stress:Tc-99m 32.4 IV DEION Johnson Sestamibi Rest: 04-May-2021 60 Discovery 630 Stress: 04-May-2021 30 Discovery 630 0.4mg Lexiscan. Images obtained in supine and prone position. SPECT RESULTS Technical Quality: Excellent Raw Data Analysis: Normal Image Corrections: No attenuation or motion correction applied Summed Stress Score: 0 Summed Rest Score: 0 Summed Difference Score: 0 PERFUSION FINDINGS Fairly uniform myocardial tracer uptake with no significant perfusion normalities. FUNCTIONAL RESULTS (calculated via Gated SPECT) Stress Image LV EF (%): 67 Stress EDV (mL):83 TID: 1.11 Stress ESV (mL):27 FUNCTIONAL FINDINGS: Segmental wall motion analysis revealing no gross wall motion abnormalities. IMPRESSIONS 1. Unremarkable myocardial perfusion imaging. 2. Normal LV ejection fraction of 67%. 3. LV wall motion analysis revealing no evidence of wall motion normalities. 4. Normal LV volume. Low probability for coronary ischemia, based on the above findings Dr Myranda Mccartney MD [facility] (Electronically Signed) Final Date: 04 May 2021 14:43 S
[2021-05-04] MEDS: regadenoson 0.4 Mg/5 ml Syringe IVP (11:34)
[2021-05-04 12:11] VITALS: BP 125/70; PULSE 96
--- NOTE | 2021-05-04 12:45 | USCV_ITS ---
Matt Tran Age: 76 Gender: M : 1945 Exam Date: 05/04/2021 09:22 Ordering Phys: Myranda Mccartney MD ([email or web address]) Technologist: Kenneth Westfall Exam Location: [facility] [place] Indication: SOB CHEST PAIN BP: 120 / 70 HR: 100 Rhythm: Sinus Technical Quality: Adequate MEASUREMENTS (Male / Female) Normal Values 2D ECHO LV Diastolic Diameter PLAX 3.7 cm 4.2 - 5.9 / 3.9 - 5.3 cm LV Systolic Diameter PLAX 2.7 cm IVS Diastolic Thickness 1.2 cm 0.6 - 1.0 / 0.6 - 0.9 cm IVS Systolic Thickness 2.0 cm LVPW Diastolic Thickness 1.1 cm 0.6 - 1.0 / 0.6 - 0.9 cm LVPW Systolic Thickness 1.5 cm LVOT Diameter 2.5 cm LV Ejection Fraction 2D Teich 50.9 % LV Ejection Fraction MOD 2C 60.5 % LV Ejection Fraction 2C AL 60.0 % LA Diameter 4.0 cm Aorta at Sinotubular Diameter 2.6 cm M-MODE LV Diastolic Diameter MM 5.7 cm 4.2 - 5.9 / 3.9 - 5.3 cm LV Systolic Diameter MM 3.9 cm LV Ejection Fraction MM Teich 57.3 % IVS Diastolic Thickness MM 1.3 cm 0.6 - 1.0 / 0.6 - 0.9 cm IVS Systolic Thickness MM 2.0 cm LVPW Diastolic Thickness MM 1.3 cm 0.6 - 1.0 / 0.6 - 0.9 cm LVPW Systolic Thickness MM 2.0 cm RV Diastolic Diameter MM 1.9 cm Aortic Annulus Diameter 3.4 cm LA Ao Ratio MM 1.2 MV E Point Septal Separation 0.8 cm DOPPLER AV Peak Velocity 141.0 cm/s LVOT Peak Velocity 131.0 cm/s AV Area Cont Eq vti 5.4 cm squared AV Area Cont Eq pk 4.6 cm squared MV Area PHT 9.6 cm squared Mitral E to A Ratio 0.7 MV E' Velocity 26.0 cm/s Mitral E to MV E' Ratio 9.1 Mitral E to LV E' Lateral Ratio 8.6 Mitral E to LV E' Septal Ratio 9.8 TR Peak Velocity 164.0 cm/s TR Peak Gradient 10.8 mmHg TV Peak E Velocity 83.0 cm/s Right Atrial Pressure 3.0 mmHg Pulmonary Artery Systolic Pressu 13.8 mmHg FINDINGS Left Ventricle Normal LV size ejection fraction of 60%. Slightly dyskinetic basal inferior wall segment.Grade I/IV diastolic dysfunction (abnormal relaxation filling pattern), normal to mildly elevated filling pressures. Right Ventricle Normal right ventricular size and systolic function. Right Atrium The right atrium is normal in size. Left Atrium Normal left atrial size. Mitral Valve Structurally normal mitral valve without significant stenosis or prolapse. There is no mitral regurgitation. Aortic Valve Thickened aortic valve. Tricuspid Valve No gross abnormalities noted Pulmonic Valve No gross abnormalities noted Pericardium Normal pericardium without effusion. Aorta Normal ascending aorta dimension. CONCLUSIONS Normal LV size ejection fraction of 60%. Slightly dyskinetic basal inferior wall segment. Grade I/IV diastolic dysfunction (abnormal relaxation filling pattern), normal to mildly elevated filling pressures. Thickened aortic valve. There is no pericardial effusion. There are no intracardiac masses. No previous study is available for comparison. Dr Myranda Mccartney MD [facility] (Electronically Signed) Final Date: 04 May 2021 14:54 S
--- NOTE | 2021-05-04 13:30 | USCV_ITS ---
Matt Tran Age: 76 Gender: M : 1945 Exam Date: 05/04/2021 09:35 Ordering Phys: Myranda Mccartney MD ([email or web address]) Technologist: Kenneth Westfall [place] [facility] [place]: CCA DISEASE Risk Factors: Previous Vascular Surgery: Right Brachial BP: / Left Brachial BP: / Right Left Velocity (cm/s) Spectral Plaque Velocity (cm/s) Spectral Plaque Syst/Diast Broadening Syst/Diast Broadening 80.80/ 15.10 Prox CCA 96.20 / 16.20 90.15/ 23.00 Mid CCA 106.30/ 26.30 72.65/ 20.90 Distal CCA 111.30/ 20.20 76.65/ 23.10 Prox ICA 94.10 / 27.30 93.10/ 24.37 Mid ICA 106.30/ 32.40 89.85/ 25.35 Distal ICA 80.00 / 25.30 120.90 ECA 80.00 0.76 ICA/CCA 0.95 Antegrade Vertebral Antegrade 48.40/ 9.70 cm/s 40.50/ 8.10 cm/s Tri Subclavian Tri 70.50 96.20 FINDINGS Mild to moderate plaques of the right bifurcation and proximal internal carotid artery. Minimal plaques at the left bifurcation and proximal internal carotid artery. Antegrade flow in the vertebral arteries bilaterally. Normal Doppler flow velocities in the external carotid , subclavian and vertebral arteries bilaterally CONCLUSIONS Mild to moderate plaques of the right bifurcation and proximal internal carotid artery suggesting less than 50% stenosis. Minimal plaques at the left bifurcation and proximal internal carotid artery. No significant stenosis in the vertebral, subclavian artery the external carotid artery, based on the above findings Dr Myranda Mccartney MD [facility] (Electronically Signed) Final Date: 04 May 2021 15:00 S
== END 2021-05-04 08:55 | disposition home or self-care (01) ==
LOC: RAD 09:04 → CDL 09:07
PROVIDERS: PCP Nurse Practitioner Family; Visit Provider Internal Medicine Cardiovascular Disease
DX: R06.02 Shortness of breath (principal); I77.9 Disorder of arteries and arterioles, unspecified; R06.00 Dyspnea, unspecified; I65.23 Occlusion and stenosis of bilateral carotid arteries; I35.8 Other nonrheumatic aortic valve disorders
CPT/HCPCS: 78452; 93017; 93306; 93880; A9500; J2785

== ENCOUNTER → 2021-06-17 09:58 | Outpatient (BNVA) | payer MEDICARE, SELFPAY | PROVIDERS: PCP Nurse Practitioner Family; Visit Provider Nurse Practitioner Family | DX: R55 Syncope and collapse (principal); R06.02 Shortness of breath | CPT/HCPCS: 99213 ==

== ENCOUNTER 2021-09-03 07:50 | Oncology outpatient (recurring) (ONCR) | payer MEDICARE, SELFPAY ==
[2021-09-03 10:16] LABS: Basophils # 0.1 10^3/uL (0.0-0.1); Basophils % 0.5 %; Eosinophils # 0.2 10^3/uL (0.0-0.8); Eosinophils % 1.5 %; Hematocrit 40.3 % (42.0-52.0); Hemoglobin 12.9 g/dL (11.7-16.6); Lymphocytes # 1.6 10^3/uL (0.8-4.8); Mean Corpuscular Hemoglobin 25.3 pg (28.0-34.0); Mean Corpuscular Volume 79.2 fl (80-94); Mean Platelet Volume 9.9 fL (7.4-10.4); Monocytes # 1.3 10^3/uL (0.2-0.9); Monocytes % 9.5 %; Neutrophils # 10.02 10^3/uL (1.8-7.7); Nucleated Red Blood Cells % 0 %; Platelet Count 394 10^3/cmm (130-400); Red Blood Count 5.09 10^6/uL (4.1-5.3); Red Cell Distribution Width 16.7 % (12.1-15.1); White Blood Count 13.4 10^3/uL (4.0-10.0)
[2021-09-03 10:34] LABS: Alanine Aminotransferase 85 U/L (0-41); Albumin Level 3.9 g/dL (3.5-5.2); Alkaline Phosphatase 100 IU/L (40-130); Anion Gap 15.2 (5-19); Aspartate Amino Transferase 81 U/L (0-40); Blood Urea Nitrogen 26 mg/dL (8-23); C Reactive Protein 28.9 mg/L (0.0-4.9); Calcium 8.7 mg/dL (8.5-10.5); Carbon Dioxide 29 mmol/L (22-29); Chloride 97 mmol/L (98-107); Globulin 3.1 g/dL (1.3-4.6); Glucose 152 mg/dL (65-115); Lactate Dehydrogenase 238 U/L (135-225); Osmolality Calculated 290 mOsm/kg (285-295); Potassium 5.2 mmol/L (3.5-5.1); Sodium 136 mmol/L (136-145); Total Bilirubin 0.5 mg/dL (0.15-1.2)
[2021-09-03 11:02] LABS: Iron 50 ug/dL (59-158); Percent Saturation 13.4 % (20-50); Total Iron Binding Capacity 371 mcg/dl; Unsaturated Iron Binding 321 ug/dL (112-347)
[2021-09-03 11:18] LABS: Vitamin B12 885 pg/mL (232-1245)
[2021-09-03 11:21] LABS: LAB Peripheral Smear Sent for Review
[2021-09-04 13:14] LABS: Erythrocyte Sedimentation Rate 9 mm/hr (0-10)
== END 2021-09-03 23:59 | disposition home or self-care (01) ==
LOC: ONCMED 07:53
PROVIDERS: PCP Nurse Practitioner Family; Visit Provider Internal Medicine Medical Oncology
DX: D72.828 Other elevated white blood cell count (principal); L03.115 Cellulitis of right lower limb; R91.1 Solitary pulmonary nodule; D64.9 Anemia, unspecified
CPT/HCPCS: 36415; 80053; 82607; 83540; 83550; 83615; 85025; 85651; 86140; 88374; 99204

== ENCOUNTER 2021-09-25 06:54 | Oncology outpatient (recurring) (ONCR) | payer MEDICARE, SELFPAY ==
--- NOTE | 2021-09-25 07:00 | CT_ITS ---
WS: [id number] CT CHEST TECHNIQUE: Noncontrast CT of the chest with coronal and sagittal reformatted images. CLINICAL INFORMATION: compare to previous COMPARISON: CT chest July 20, 2019 DLP: 787.[address] scans at [facility] use at least one of these dose optimization techniques: automated e xposure control; mA and/or kV adjustment per patient size (includes targeted exams where dose is matc hed to clinical indication); or iterative reconstruction. FINDINGS: Stable 4 mm nodule RIGHT middle lobe. Moderate chronic emphysematous changes. Fibrosis in the lung bases medially. No acute pulmonary infil trates. No focal pneumonia or pleural fluid. Normal caliber thoracic aorta. Aortic calcification. No mediastinal or hilar lymphadenopathy. Normal GE junction. Diffuse fatty infiltration of the liver. Ad renal glands are normal. Normal GE junction. Mild thoracic curve. Moderate thoracic kyphosis. Hypertr ophic changes thoracic spine.Bilateral total shoulder arthroplasties. CT/CT chest wo con [id number] IMPRESSION: 1. Stable 4 mm noncalcified nodule RIGHT middle lobe. 2. Moderate chronic emphysematous changes. No acute pulmonary infiltrates. 3. Stable fibrosis in the lung bases medially. 4. No mediastinal or hilar lymphadenopathy. 5. Diffuse infiltration of the liver. Fleischner Society Guidelines Chest CT Fleischner Society guidelines for follow-up and management of incidental pulmon willie nodule (Radiology 2005; 237:395-400): Nodule <= 4 mm: LOW-RISK patient (minimal or absent history of smoking and othe r known risk factors): No follow-up needed. HIGH-RISK patient (history of smoking or other known risk factors): Follow-up C T at 12 months; if unchanged, no further follow-up. Nodule 5 - 6 mm: LOW-RISK patient (minimal or absent history of smoking and oth er known risk factors): Follow-up CT at 12 months; if unchanged, no further fol low-up. HIGH-RISK patient (history of smoking or other known risk factors): Initial fol low-up CT at 6-12 months, then at 18-24 months if no change. Nodule 7 - 8 mm: LOW-RISK patient (minimal or absent history of smoking and oth er known risk factors): Initial follow-up CT at 6-12 months then at 18-24 month s if no change. HIGH-RISK patient (history of smoking or other known risk factors): Initial fol low-up CT at 3-6 months, then at 9-12 months and 24 months if no change. Nodule > 8 mm: ALL patients: Follow-up CT at around 3, 9, and 24 months, dynami c contrast-enhanced CT, PET, and/or biopsy. Is
== END 2021-10-04 23:59 | disposition home or self-care (01) ==
PROVIDERS: PCP Nurse Practitioner Family; Visit Provider Internal Medicine Medical Oncology
DX: R91.1 Solitary pulmonary nodule (principal)
CPT/HCPCS: 71250

== ENCOUNTER → 2021-12-15 09:35 | Outpatient (BNVA) | payer MEDICARE, SELFPAY | PROVIDERS: PCP Nurse Practitioner Family; Visit Provider Nurse Practitioner Family | DX: I12.9 Hypertensive chronic kidney disease with stage 1 through stage 4 chronic kidney disease, or unspecified chronic kidney disease (principal); E11.22 Type 2 diabetes mellitus with diabetic chronic kidney disease; N18.9 Chronic kidney disease, unspecified; Z87.891 Personal history of nicotine dependence; Z79.84 Long term (current) use of oral hypoglycemic drugs; I65.22 Occlusion and stenosis of left carotid artery | CPT/HCPCS: 99214 ==

== ENCOUNTER 2021-12-30 12:26 | Oncology outpatient (recurring) (ONCR) | payer MEDICARE, SELFPAY ==
[2021-12-30 12:45] LABS: Basophils # 0.1 10^3/uL (0.0-0.1); Basophils % 0.8 %; Eosinophils # 0.4 10^3/uL (0.0-0.8); Eosinophils % 3.7 %; Hematocrit 40.2 % (42.0-52.0); Hemoglobin 12.9 g/dL (11.7-16.6); Lymphocytes # 1.7 10^3/uL (0.8-4.8); Lymphocytes % 14.8 %; Mean Corpuscular HGB Conc 32.1 g/dL (30.0-36.0); Mean Corpuscular Hemoglobin 27.5 pg (28.0-34.0); Mean Corpuscular Volume 85.7 fl (80-94); Mean Platelet Volume 9.7 fL (7.4-10.4); Monocytes # 0.9 10^3/uL (0.2-0.9); Neutrophils # 8.51 10^3/uL (1.8-7.7); Neutrophils % 72.3 %; Nucleated Red Blood Cells % 0 %; Platelet Count 310 10^3/cmm (130-400); Red Blood Count 4.69 10^6/uL (4.1-5.3); Red Cell Distribution Width 14.7 % (12.1-15.1); White Blood Count 11.8 10^3/uL (4.0-10.0)
[2021-12-30 12:46] LABS: Erythrocyte Sedimentation Rate 22 mm/hr (0-10)
[2021-12-30 13:10] LABS: Alanine Aminotransferase 26 U/L (0-41); Albumin Level 3.6 g/dL (3.5-5.2); Alkaline Phosphatase 89 U/L (40-130); Anion Gap 17.4 (5-19); Aspartate Amino Transferase 45 U/L (0-40); Blood Urea Nitrogen 24 mg/dL (8-23); Carbon Dioxide 28 mmol/L (22-29); Chloride 95 mmol/L (98-107); Globulin 3.5 g/dL (1.3-4.6); Glucose 204 mg/dL (65-115); Osmolality Calculated 292 mOsm/kg (285-295); Potassium 4.4 mmol/L (3.5-5.1); Sodium 136 mmol/L (136-145); Total Bilirubin 0.4 mg/dL (0.15-1.2); Total Protein 7.1 g/dL (6.6-8.7)
[2021-12-30 13:21] LABS: Lactate Dehydrogenase 403 U/L (135-225)
== END 2022-01-04 23:59 | disposition home or self-care (01) ==
LOC: ONCMED 12:27
PROVIDERS: PCP Nurse Practitioner Family; Visit Provider Internal Medicine Medical Oncology
DX: D72.9 Disorder of white blood cells, unspecified (principal); D64.9 Anemia, unspecified; Z79.899 Other long term (current) drug therapy; Z87.891 Personal history of nicotine dependence
CPT/HCPCS: 36415; 80053; 83615; 85025; 85651; 99214

== ENCOUNTER 2022-02-02 09:16 | Oncology outpatient (recurring) (ONCR) | payer MEDICARE, SELFPAY ==
[2022-02-02 09:35] LABS: Basophils # 0.1 10^3/uL (0.0-0.1); Basophils % 1.1 %; Eosinophils # 0.6 10^3/uL (0.0-0.8); Hematocrit 41.5 % (42.0-52.0); Hemoglobin 13.6 g/dL (11.7-16.6); Lymphocytes # 1.9 10^3/uL (0.8-4.8); Lymphocytes % 18.3 %; Mean Corpuscular HGB Conc 32.8 g/dL (30.0-36.0); Mean Corpuscular Hemoglobin 28.4 pg (28.0-34.0); Mean Corpuscular Volume 86.6 fl (80-94); Mean Platelet Volume 9.6 fL (7.4-10.4); Monocytes # 1.2 10^3/uL (0.2-0.9); Monocytes % 11.1 %; Neutrophils # 6.64 10^3/uL (1.8-7.7); Neutrophils % 62.9 %; Nucleated Red Blood Cells % 0 %; Platelet Count 310 10^3/cmm (130-400); Red Blood Count 4.79 10^6/uL (4.1-5.3); White Blood Count 10.6 10^3/uL (4.0-10.0)
[2022-02-02 09:40] LABS: Erythrocyte Sedimentation Rate 33 mm/hr (0-10)
[2022-02-02 09:53] LABS: Alanine Aminotransferase 36 U/L (0-41); Albumin Level 3.9 g/dL (3.5-5.2); Alkaline Phosphatase 70 U/L (40-130); Anion Gap 18.1 (5-19); Aspartate Amino Transferase 33 U/L (0-40); Blood Urea Nitrogen 29 mg/dL (8-23); C Reactive Protein 27.1 mg/L (0.0-4.9); Calcium 9.4 mg/dL (8.5-10.5); Carbon Dioxide 25 mmol/L (22-29); Chloride 94 mmol/L (98-107); Globulin 3.2 g/dL (1.3-4.6); Glucose 111 mg/dL (65-115); Osmolality Calculated 283 mOsm/kg (285-295); Potassium 4.1 mmol/L (3.5-5.1); Sodium 133 mmol/L (136-145); Total Bilirubin 0.4 mg/dL (0.15-1.2); Total Protein 7.1 g/dL (6.6-8.7)
[2022-02-02 14:48] LABS: Iron 69 ug/dL (59-158); Percent Saturation 19.3 % (20-50); Total Iron Binding Capacity 356 mcg/dl; Unsaturated Iron Binding 287 ug/dL (112-347)
== END 2022-02-03 23:59 | disposition home or self-care (01) ==
PROVIDERS: PCP Nurse Practitioner Family; Visit Provider Internal Medicine Medical Oncology
DX: D64.9 Anemia, unspecified (principal)
CPT/HCPCS: 36415; 80053; 83540; 83550; 85025; 85651; 86140

== ENCOUNTER → 2022-04-13 10:13 | Outpatient (BNVA) | payer MEDICARE, SELFPAY | PROVIDERS: PCP Nurse Practitioner Family; Visit Provider Internal Medicine Rheumatology | DX: Z79.899 Other long term (current) drug therapy (principal); M10.9 Gout, unspecified; M19.90 Unspecified osteoarthritis, unspecified site; Z11.59 Encounter for screening for other viral diseases; M17.11 Unilateral primary osteoarthritis, right knee; M19.072 Primary osteoarthritis, left ankle and foot; M19.071 Primary osteoarthritis, right ankle and foot | CPT/HCPCS: 36415; 73130; 73562; 73630; 80076; 82565; 84550; 85025; 85651; 86140; 86200; 86480; 86704; 86803; 86812; 87340; 99204 ==

== ENCOUNTER → 2022-06-08 09:11 | Outpatient (BNVA) | payer MEDICARE, SELFPAY | PROVIDERS: PCP Nurse Practitioner Family; Visit Provider Internal Medicine Rheumatology | DX: M19.90 Unspecified osteoarthritis, unspecified site (principal); Z79.899 Other long term (current) drug therapy; M10.9 Gout, unspecified; N18.9 Chronic kidney disease, unspecified; M11.20 Other chondrocalcinosis, unspecified site | CPT/HCPCS: 99214 ==

== ENCOUNTER → 2022-06-15 13:49 | Outpatient (BNVA) | payer MEDICARE, SELFPAY | PROVIDERS: PCP Nurse Practitioner Family; Visit Provider Internal Medicine Cardiovascular Disease | DX: R55 Syncope and collapse (principal); I65.22 Occlusion and stenosis of left carotid artery; E03.8 Other specified hypothyroidism; Z87.898 Personal history of other specified conditions; I12.9 Hypertensive chronic kidney disease with stage 1 through stage 4 chronic kidney disease, or unspecified chronic kidney disease; E11.22 Type 2 diabetes mellitus with diabetic chronic kidney disease; N18.9 Chronic kidney disease, unspecified; Z87.891 Personal history of nicotine dependence; Z79.84 Long term (current) use of oral hypoglycemic drugs; Z79.82 Long term (current) use of aspirin; E11.65 Type 2 diabetes mellitus with hyperglycemia | CPT/HCPCS: 99214 ==

== ENCOUNTER 2022-07-05 11:09 | Oncology outpatient (recurring) (ONCR) | payer MEDICARE, SELFPAY ==
[2022-07-05 11:50] LABS: Basophils # 0.1 10^3/uL (0.0-0.1); Basophils % 0.7 %; Eosinophils % 0.3 %; Hematocrit 43.3 % (42.0-52.0); Lymphocytes # 1.6 10^3/uL (0.8-4.8); Mean Corpuscular HGB Conc 32.3 g/dL (30.0-36.0); Mean Corpuscular Volume 89.6 fl (80-94); Mean Platelet Volume 10.4 fL (7.4-10.4); Monocytes # 1.1 10^3/uL (0.2-0.9); Monocytes % 7.9 %; Neutrophils # 10.57 10^3/uL (1.8-7.7); Neutrophils % 78.7 %; Nucleated Red Blood Cells % 0 %; Platelet Count 430 10^3/cmm (130-400); Red Blood Count 4.83 10^6/uL (4.1-5.3); Red Cell Distribution Width 14.9 % (12.1-15.1); White Blood Count 13.4 10^3/uL (4.0-10.0)
[2022-07-05 12:02] LABS: Bilirubin Urine Neg (Negative); Blood Urine Neg (Negative); Glucose Urine UA 2+ (Normal); Ketones Urine Negative (Negative); Leukocyte Esterase Urine Negative (Negative); Nitrate Urine Negative (Negative); Protein Urine 1+ (Negative); Specific Gravity, Urine 1.005 (1.005-1.030); Urine Appearance Clear (CLEAR); Urine Color Yellow (Yellow); Urobilinogen Urine Norm (Negative); pH Urine 7 (5-7)
[2022-07-05 12:03] LABS: Erythrocyte Sedimentation Rate 50 mm/hr (0-10)
[2022-07-05 12:03] LABS: Add Urine Culture? No; Bacteria Urine TRACE /hpf; Squamous Epithelial Cell Urine 0-4 /hpf (0-5); WBC Urine 0-4 /hpf (0-5)
[2022-07-05 12:12] LABS: Alanine Aminotransferase 36 U/L (0-41); Albumin Level 4.1 g/dL (3.5-5.2); Alkaline Phosphatase 92 U/L (40-130); Aspartate Amino Transferase 65 U/L (0-40); Globulin 3.1 g/dL (1.3-4.6); Iron 67 ug/dL (59-158); Percent Saturation 18.3 % (20-50); Total Bilirubin 0.5 mg/dL (0.15-1.2); Total Iron Binding Capacity 365 mcg/dl; Total Protein 7.2 g/dL (6.6-8.7); Unsaturated Iron Binding 298 ug/dL (112-347); Uric Acid 6.2 mg/dL (3.4-7.0)
[2022-07-05 12:13] LABS: Alanine Aminotransferase 37 U/L (0-41); Alkaline Phosphatase 94 U/L (40-130); Anion Gap 18.1 (5-19); Aspartate Amino Transferase 65 U/L (0-40); Blood Urea Nitrogen 41 mg/dL (8-23); Calcium 9.7 mg/dL (8.5-10.5); Carbon Dioxide 28 mmol/L (22-29); Chloride 95 mmol/L (98-107); Globulin 3.3 g/dL (1.3-4.6); Glucose 165 mg/dL (65-115); Osmolality Calculated 298 mOsm/kg (285-295); Potassium 4.1 mmol/L (3.5-5.1); Sodium 137 mmol/L (136-145); Total Bilirubin 0.5 mg/dL (0.15-1.2); Total Protein 7.3 g/dL (6.6-8.7)
[2022-07-05 12:13] LABS: Urine Creatinine 139 mg/dL (39-259)
[2022-07-05 12:14] LABS: UPRO/UCREAT Ratio 0.53 mg/mg CR; Urine Protein Random 73 mg/dL
--- NOTE | 2022-07-05 13:14 | XR_ITS ---
WS: [id number] XR hip RT 2-3V wo/w pel* [id number] REASON FOR EXAM: right hip pain FINDINGS: No fracture or focal bone lesion. Significant narrowing of the joint space with moderate subchondral sclerosis, cystic change, and oste ophytosis of the acetabulum. No soft tissue abnormality. XR/XR hip RT 2-3V wo/w pel* [id number] IMPRESSION: Significant osteoarthritis of the right hip.
== END 2022-08-04 23:59 | disposition home or self-care (01) ==
PROVIDERS: Internal Medicine Rheumatology; PCP Nurse Practitioner Family; Visit Provider Internal Medicine Medical Oncology
DX: D72.829 Elevated white blood cell count, unspecified (principal); M25.551 Pain in right hip; Z87.891 Personal history of nicotine dependence
CPT/HCPCS: 36415; 73502; 80053; 80076; 81001; 82565; 82570; 83540; 83550; 84156; 84550; 85025; 85651; 86140; 99214

== ENCOUNTER → 2022-08-10 14:18 | Outpatient (BNVA) | payer MEDICARE, SELFPAY | PROVIDERS: PCP Nurse Practitioner Family; Visit Provider Orthopaedic Surgery | DX: M16.11 Unilateral primary osteoarthritis, right hip (principal); E11.65 Type 2 diabetes mellitus with hyperglycemia; Z79.84 Long term (current) use of oral hypoglycemic drugs | CPT/HCPCS: 99213 ==

== ENCOUNTER → 2022-08-23 12:55 | Outpatient (BNVA) | payer MEDICARE, SELFPAY | PROVIDERS: PCP Nurse Practitioner Family; Visit Provider Family Medicine | DX: Z01.818 Encounter for other preprocedural examination (principal); E11.65 Type 2 diabetes mellitus with hyperglycemia; M16.11 Unilateral primary osteoarthritis, right hip | CPT/HCPCS: 80048; 80053; 81003; 83036; 85025 ==

== ENCOUNTER → 2022-08-31 10:06 | Outpatient (BNVA) | payer MEDICARE, SELFPAY | PROVIDERS: PCP Nurse Practitioner Family; Visit Provider Internal Medicine Rheumatology | DX: N18.9 Chronic kidney disease, unspecified (principal); M19.90 Unspecified osteoarthritis, unspecified site; M06.041 Rheumatoid arthritis without rheumatoid factor, right hand; M11.20 Other chondrocalcinosis, unspecified site; Z79.899 Other long term (current) drug therapy; M06.042 Rheumatoid arthritis without rheumatoid factor, left hand; E79.0 Hyperuricemia without signs of inflammatory arthritis and tophaceous disease | CPT/HCPCS: 99214 ==

== ENCOUNTER → 2022-09-15 08:14 | Outpatient (BNVA) | payer MEDICARE, SELFPAY | PROVIDERS: PCP Nurse Practitioner Family; Visit Provider Specialist | DX: M16.11 Unilateral primary osteoarthritis, right hip; M06.041 Rheumatoid arthritis without rheumatoid factor, right hand; M06.042 Rheumatoid arthritis without rheumatoid factor, left hand | CPT/HCPCS: 73502; 99214 ==

== ENCOUNTER 2022-09-23 09:56 | Observation (INO) | payer MEDICARE, SELFPAY ==
[2022-09-21 13:00] VITALS: BMI 33.0
--- NOTE | 2022-09-21 13:36 | ANES.PREANE2 ---
Pre-Anesthetic Assessment Height/Weight: Height 1.68 m Weight 92.986 kg Operation Date: 09/23/22 07:45 Proposed Procedures p right total hip arthroplasty/ 51208,M16.11(Right) - Starla Andrews MD Familial anesthetic complications: none Was Beta Erica taken within 24 hours: N/A Was Clonidine taken within 24 hours: N/A Social Alcohol (Daily whiskey and vodka) and No tobacco Exam alert, oriented x 3, clear to auscultation bilaterally and regular rate & rhythm Airway Submandibular: within normal limits Cervical ROM: within normal limits Mallampati: Class III Dentition: chipped CV/HEM Anemia, Hypertension and Peripheral Vascular Disease ONCLUSIONS ?Normal LV size ejection fraction of 60%.? ?Slightly dyskinetic basal inferior wall segment. ?Grade I/IV diastolic dysfunction (abnormal relaxation filling ?pattern), normal to mildly elevated filling pressures. ?Thickened aortic valve. ?There is no pericardial effusion. ?There are no intracardiac masses. ?No previous study is available for comparison. ?Dr Myranda Mccartney MD [facility] ?(Electronically Signed) ?Final Date:? ? ? 04 May 2021 CONCLUSIONS ?Mild to moderate plaques of the right bifurcation and proximal ?internal carotid artery suggesting less than 50% stenosis. ?Minimal plaques at the left bifurcation and proximal internal ?carotid artery. ?No significant stenosis in the vertebral, subclavian artery the ?external carotid artery, based on the above findings ?Dr Myranda Mccartney MD [facility] ?(Electronically Signed) ?Final Date:? ? ? 04 May 2021 Chronic Renal Insufficiency GI Gastroesophageal Reflux Disease Metabolic Diabetes Mellitus, Hyperlipidemia, Morbid Obesity and Thyroid Disease Chronic steroid Musc/skel Lower Back Pain and Osteoarthritis/DJD Gout Anesthetic Plan ASA status: 3 Anesthesia: Regional (specify below) (SAB) Medications/Allergies Home Medications Medication Instructions Recorded Confirmed Last Taken Type duloxetine 30 mg capsule,delayed 30 mg PO DAILY 07/12/19 09/21/22 09/21/22 History release sprinkle levothyroxine 50 mcg capsule 50 mcg PO DAILY 07/12/19 09/21/22 09/21/22 History pravastatin 80 mg tablet 80 mg PO DAILY 07/12/19 09/21/22 09/21/22 History sodium bicarbonate 650 mg tablet 650 mg PO TID 07/12/19 09/21/2223 History ropinirole 0.5 mg tablet 0.5 mg PO DAILY 06/17/21 09/21/22 09/20/22 History ferrous sulfate 325 mg (65 mg 325 mg PO DAILY 12/15/21 09/21/22 09/21/22 History iron) tablet lisinopril 10 mg tablet 10 mg PO DAILY 12/30/21 09/21/22 09/21/22 History metformin 500 mg tablet 1,000 mg PO DAILY 12/30/21 09/21/22 09/21/22 History prednisone 10 mg tablet 10 mg PO DAILY joint pain #90 tabs 06/08/22 09/21/22 09/21/22 Rx tramadol 50 mg tablet See Rx Instructions PO BID 07/05/22 09/21/22 09/21/22 History empagliflozin 25 mg tablet 25 mg PO DAILY 08/23/22 09/21/22 09/21/22 History (Jardiance) allopurinol 100 mg tablet 200 mg PO DAILY #180 tabs 08/31/22 09/21/22 09/21/22 Rx leflunomide 20 mg tablet 20 mg PO DAILY #90 tabs 08/31/22 09/21/22 09/21/22 Rx omeprazole 20 mg tablet,delayed 20 mg PO DAILY #90 tabs 08/31/22 09/21/22 09/21/22 Rx release Allergies Allergy/AdvReac Type Severity Reaction Status Date / Time Penicillins Allergy Severe ALGY-Hives Verified 09/15/22 08:03 shellfish derived Allergy Severe ALGY-Hives Verified 09/15/22 08:03 esomeprazole [From Nexium] Allergy Intermediate ALGY-Hives Verified 09/15/22 08:03 Neoprene Allergy Severe ALGY-Hives Uncoded 09/15/22 08:03 [facility] Anesthesia Medical History Asthma Calcium pyrophosphate deposition disease (CPPD) Carotid artery disease CKD (chronic kidney disease) Colon polyps Degenerative arthritis Gout HTN (hypertension) Hyperlipidemia Hyperuricemia Hypothyroidism Inflammatory arthritis Prostate cancer Seronegative rheumatoid arthritis of both hands Type 2 diabetes mellitus Surgical History H/O hand surgery H/O prostatectomy (2017) Radical prostatectomy for prostate cancer History of left knee replacement History of left shoulder replacement History of right shoulder replacement (07/15/21) Right reverse total shoulder Hx of cataract surgery Hx of shoulder surgery (08/21/21) Closed reduction of right glenohumeral joint for dislocated right reverse total shoulder Family History Father Heart disease CAD (coronary artery disease), Onset Age: 80 Other Cancer Denies family history of Diabetes Clotting disorder Dementia Hyperlipidemia Psychiatric illness Chronic kidney disease (CKD) Suicide Anesthesia complication Bleeding disorder Lung disease Hypertension Stroke Social History Smoking and tobacco status: former smoker Quit status (tobacco): has quit using tobacco Year quit tobacco: 2018 - 0.5 PPD x 15 Years Alcohol intake: current Alcohol intake frequency: 0-2 Drinks per Day Alcohol type: hard liquor Substance/Drug Use: never Lives independently: Yes Household members: spouse Marital status: service: No Current occupational status: retired Do you think of yourself as: Straight/Heterosexual Current gender identity: Male Data Anesthesia Cardiac Studies: Echocardiogram 05/04/21 Sestamibi Stress Test (Cardiology) 05/04/21
[2022-09-23] VITALS (15 sets, daily range): BP systolic 87–182; BP diastolic 49–108; PULSE 80–110; RESP 12–18; TEMP 36.2–36.8; O2SAT 93–97
[2022-09-23] MEDS: acetaminophen 1,000 MG/100 ML PIGGYBACK 400 MG IV ×3 (06:33→22:40)
[2022-09-23] MEDS: sodium chloride 0.9% 1,000 ML 30 ML IV (06:34)
[2022-09-23 06:46] LABS: Glucose Point of Care 137 mg/dL (70-110)
[2022-09-23] MEDS: gabapentin 300 mg Capsule PO (06:47)
[2022-09-23] MEDS: CELEcoxib 200 mg Capsule 400 MG PO (06:47)
--- NOTE | 2022-09-23 06:58 | W.PM.OPSUD ---
Surgery/Procedure H&P Update DATE OF PROCEDURE: September 23, 2022 DATE H&P PERFORMED: 09/15/22 H&P UPDATE INFORMATION: I have reviewed H&P completed within last 30 days, I have examined patient prior to procedure, No changes to prior documentation and H&P is in [facility] EMR on date indicated PLANNED PROCEDURE: Operation Date: 09/23/22 07:00 Proposed Procedures p right total hip arthroplasty/ 95676,M16.11(Right) - Starla Andrews MD Related Problem List Diagnoses (1) Primary osteoarthritis of right hip:
[2022-09-23] MEDS: vancomycin 1,000 MG in sodium chloride 0.9% 250 ML 250 MG IV (07:01)
--- NOTE | 2022-09-23 07:09 | ANES.PAUD2 ---
Pre-Anesthetic Update Pre-Anesthetic Assessment: Date of Surgery/Procedure: 09/23/22 Proposed Procedure: Operation Date: 09/23/22 07:00 Proposed Procedures p right total hip arthroplasty/ 39275,M16.11(Right) - Starla Andrews MD Any changes to Pre-Anesthetic Assessment?: No Last Intake: Intake Last Liquid Date 09/22/22 Last Liquid Time 21:30 Last Solid Date 09/22/22 Last Solid Time 21:30 Vitals: Temperature 97.1 F L 09/23/22 06:13 Temperature Source Temporal Artery S can 09/23/22 06:13 Pulse Rate 110 H 09/23/22 06:13 Respiratory Rate 16 09/23/22 06:13 Blood Pressure 175/108 09/23/22 06:13 Blood Pressure Isabel n 130 09/23/22 06:13 Pulse Oximetry 95 09/23/22 06:13 Oxygen Delivery Me thod Room Air 09/23/22 06:13 Exam: Pre-Anes Outpt Exam: alert, oriented x 3, clear to auscultation bilaterally and regular rate & rhythm Cardiac Studies: Echocardiogram 05/04/21 Sestamibi Stress Test (Cardiology) 05/04/21
[2022-09-23] MEDS: tranexamic acid 1,000 mg/10mL SDV 1000 MG IV (07:50)
[2022-09-23] MEDS: ceFAZolin 1,000 mg SDV 2000 MG IVP (07:51)
[2022-09-23] MEDS: ceFAZolin 1,000 mg SDV 1000 MG IRRIGATION (08:24)
[2022-09-23] MEDS: vancomycin 1,000 MG SDV 1000 MG IRRIGATION (08:54)
--- NOTE | 2022-09-23 09:45 | XR_ITS ---
WS: [id number] Exam: XR pelvis 1-2V* [id number] Date/Time of Exam: 09/23/2022 9:45 AM Reason For Exam: Right total hip arthroplasty Comparison 09/15/2022. A right hip prosthesis has been placed. Postoperative changes in the adjacent soft tissues. XR/XR pelvis 1-2V* [id number] IMPRESSION: 1. Right total hip prosthesis in place.
--- NOTE | 2022-09-23 09:47 | PM.OP ---
Operative Report Date of procedure: September 23, 2022 Pre-op diagnosis: Severe degenerative osteoarthritis of the right hip Post-op diagnosis: Severe degenerative osteoarthritis of the right hip Post-op findings: Significant deformity to the femoral head and osteophyte formation particularly posteriorly Procedure done: Right total hip arthroplasty Implants: The [place] total hip system with a size 52 mm by E alpha code Trident II Tritanium acetabular shell with an MDM liner size 42 inner diameter by E alpha code.? A size 6 Accolade II 127? neck angle hip stem with a size 28 mm x -2.7 mm Biolox delta ceramic femoral head and a amish MDM X3 insert size 42E Specimens removed/disposition: Femoral head, disposed of Pathology: none sent Surgeon: Starla Andrews Scrap Burner: [facility] operating room technicians Anesthesia: MAC (With spinal, ASA 3) Estimated blood loss (mL): 75 IV fluids (mL): 1,000 Urine output (mL): 50 Complications: None Findings: Severe degenerative osteoarthritis of the right hip. Large posterior osteophyte. The hip was stable at 90 degrees of flexion with 80 degrees of internal rotation. It was also stable to external rotation. Leg lengths appeared to be restored Condition: stable Disposition: PACU (Then transfer to floor for postoperative rehabilitation and pain management) Brief History: This is a 77-year-old gentleman presenting today for right total hip arthroplasty. Patient states the pain has been occurring for years. Patient states that the pain is to the right hip, groin, and radiates down to the knee. Patient denies any buttocks or lumbar pain. Patient states that the pain increases with prolonged walking. Patient states the pain wakes him at night. Patient has began using a cane with ambulation due to the pain. The patient was seen preoperatively in my office. Consents were signed after questions were answered and the surgical procedure was further discussed. The patient wished to proceed with right total hip arthroplasty. Procedure: Patient was brought to the operating theater.? He was transferred to the operating room table and subsequently administered a spinal anesthesia with MAC, ASA 3.? Following administration of adequate anesthesia, the patient was placed in full lateral position and held in position with a pegboard.? The patient's right lower extremity was then prepped and draped in usual fashion utilizing DuraPrep.? It was draped free.? Following prepping and draping a surgical pause was performed.? At the time of surgical pause, we identified the site and side of surgery.? We also identified the patient and preoperative surgical markings.?Confirmation was made of equipment availability.? Additionally, the patient's preoperative IV antibiotic, Ancef 2 g as well as vancomycin 1 g, and TXA administration was confirmed as well.? The patient had a penicillin allergy, so he was given vancomycin in the preoperative holding area, and subsequently, test dose of Ancef was given which was well-tolerated. Appropriately, the Ancef, 2 g, was given also as a prophylactic antibiotic. X-rays were also reviewed. Following the surgical pause, an incision was made centering over the patient's greater trochanter continuing proximally and distally as necessary to allow access to the hip joint.? Dissection continued through skin and soft tissues using a scalpel, and hemostasis was obtained using electrocautery. The tensor fascia heather was identified and incised longitudinally.? Sciatic nerve was identified and protected throughout the surgical procedure.? A Charnley U retractor was placed after the tensor fascia heather had been incised longitudinally, and the sciatic nerve had been identified.? The hip was internally rotated, and the piriformis muscle was identified and tagged. Piriformis muscle along with the remaining short external rotators were then incised from the posterior aspect of the hip joint.? These were retracted posteriorly.? The capsule was entered in a T-type fashion with the edges being tagged, and subsequently the hip was dislocated.? There was very thickened labrum as well.? This was excised.? Following hip dislocation, a femoral neck osteotomy was accomplished in the appropriate position. The head was disposed of.? We then evaluated the acetabulum. The femur was retracted anteriorly.? Soft tissues were retracted, and the labrum was removed.? We then began reaming.? Once the femoral head was removed, there was noted to be significant loss of cartilage over the head and within the acetabulum.? We reamed to a size 51 to allow for a size 52 acetabular shell.? The acetabulum was impacted into position.? The MDM liner was then impacted into position with care being taken to assure it seated appropriately.? It was noted that the acetabulum matched the bony anatomy after posterior osteophytes were excised.? The cup was noted to seat nicely and had good fixation upon impact. Attention was directed to the proximal femur.? The proximal femur was lifted out of the wound.? A canal finder was passed after the box chisel.? The reamer was used to lateralize.? We then began broaching. We broached sequentially and had excellent fit and fill with the size 5 broach. ? A trial reduction was attempted with a +0 mm femoral head, but reduction was difficult and not completed.? We then trialed with a -2.7 mm offset femoral head, and the hip reduced nicely. This was felt to be secure and of the appropriate size.? With this in place, we had the above stabilities, and at that time, we felt that we had equal leg lengths.? We also felt that we had excellent stability noted above. Therefore, trial components were removed after the hip was dislocated.? The size 6 Accolade II 127? neck angle stem was impacted into position without difficulty and onto this was placed a -2.7 mm x 28 mm ceramic femoral head which had been assembled into the MDM insert size 42E.? With a -2.7 mm femoral head, we had the above-noted stability.? The stem was noted to seat nicely prior to placement of the femoral head.? The wound was copiously irrigated with normal saline. Betadine mixed with saline was not utilized secondary to the patient's shellfish allergy.? At this time, with all components in appropriate position, the hip was reduced.? Following reduction of the prosthesis once again, we confirmed the stability of the hip.? Leg lengths were also felt to be satisfactory. Being satisfied with the prosthesis, attention was directed to closure.? Closure was accomplished with 0 Vicryl in the capsular tissues.? Piriformis was reattached with 0 Vicryl as well.? Tensor fascia heather was closed with 0 Vicryl in an interrupted fashion.? The subcutaneous tissues were closed with a combination of 0 Vicryl and 2-0 Monocryl.? Vancomycin powder and a Gelfoam thrombin mixture was placed into the wound as well.? The skin was closed with a running 3-0 Monocryl followed by Dermabond Prineo followed by OpSite.? The patient was placed in an abduction pillow.? He was returned the Recovery Room in a satisfactory condition and will be discharged to the floor for postoperative rehabilitation and pain management.? There were no complications or specimens. Related Problem List Diagnoses (1) Primary osteoarthritis of right hip:
[2022-09-23] MEDS: gabapentin 300 mg Capsule 600 MG PO (11:11)
[2022-09-23 12:03] LABS: Glucose Point of Care 106 mg/dL (70-110)
[2022-09-23] MEDS: sodium bicarbonate 650 mg Tablet PO ×2 (14:20→20:48)
[2022-09-23] MEDS: chlorhexidine gluconate 0.12% Btl 473 mL 30 ML MUCOUS MEM ×3 (14:23→20:45)
--- NOTE | 2022-09-23 15:28 | ANE.PACU2 ---
Inpatient post-anesthesia follow up: Airway intact: Yes Vital signs: Temperature 97.5 F Pulse Rate 80 Respiratory Rate 17 Blood Pressure 159/83 Pulse Oximetry 95 Oxygen Delivery Me thod Room Air Oxygen Flow Rate 6 Fraction of Inspir ed Oxygen Hydration adequate: Yes Nausea and vomiting: No Pain level: 1 Mental status: Baseline
[2022-09-23] MEDS: TRAMadol 50 mg Tablet 100 MG PO (16:58)
[2022-09-23] MEDS: sennosides-docusate Tablet 2 TAB PO (16:58)
[2022-09-23] MEDS: iron polysaccharide complex 150 mg Capsule PO (16:58)
[2022-09-23] MEDS: calcium carbonate 500 mg Chew Tablet 1000 MG PO (16:58)
[2022-09-23] MEDS: mupirocin oint 22 gm 1 APPLIC NASAL (16:59)
[2022-09-23] MEDS: ceFAZolin 2,000 MG in sodium chloride 0.9% (plus) 50 ML 100 MG IV ×2 (16:59→23:58)
[2022-09-23 17:02] LABS: Glucose Point of Care 240 mg/dL (70-110)
[2022-09-23] MEDS: CELEcoxib 200 mg Capsule PO (17:42)
[2022-09-23 21:00] LABS: Glucose Point of Care 163 mg/dL (70-110)
[2022-09-24] VITALS: BP 159/80; PULSE 94; RESP 16; TEMP 36.6; O2SAT 93
[2022-09-24 04:00] VITALS: BP 166/95; PULSE 97; RESP 19; TEMP 36.6; O2SAT 93
[2022-09-24 05:46] LABS: Basophils # 0.1 10^3/uL (0.0-0.1); Basophils % 0.8 %; Eosinophils # 0.1 10^3/uL (0.0-0.8); Eosinophils % 1.5 %; Hemoglobin 12.4 g/dL (11.7-16.6); Lymphocytes # 1.8 10^3/uL (0.8-4.8); Lymphocytes % 19.8 %; Mean Corpuscular HGB Conc 32.6 g/dL (30.0-36.0); Mean Corpuscular Hemoglobin 29.8 pg (28.0-34.0); Mean Corpuscular Volume 91.3 fl (80-94); Mean Platelet Volume 10.9 fL (7.4-10.4); Monocytes # 1.2 10^3/uL (0.2-0.9); Monocytes % 12.6 %; Neutrophils % 64.7 %; Nucleated Red Blood Cells % 0 %; Platelet Count 194 10^3/cmm (130-400); Red Blood Count 4.16 10^6/uL (4.1-5.3); Red Cell Distribution Width 15.1 % (12.1-15.1); White Blood Count 9.3 10^3/uL (4.0-10.0)
[2022-09-24] MEDS: CELEcoxib 200 mg Capsule PO (06:09)
[2022-09-24] MEDS: acetaminophen 1,000 MG/100 ML PIGGYBACK 400 MG IV (06:09)
[2022-09-24 06:14] LABS: Anion Gap 18.6 (5-19); Blood Urea Nitrogen 35 mg/dL (8-23); Calcium 7.9 mg/dL (8.5-10.5); Carbon Dioxide 27 mmol/L (22-29); Chloride 98 mmol/L (98-107); Glucose 119 mg/dL (65-115); Osmolality Calculated 297 mOsm/kg (285-295); Potassium 4.6 mmol/L (3.5-5.1); Sodium 139 mmol/L (136-145)
[2022-09-24 06:53] LABS: Glucose Point of Care 125 mg/dL (70-110)
[2022-09-24 07:39] VITALS: BP 160/89; PULSE 94; RESP 16; TEMP 36.7; O2SAT 93
[2022-09-24 08:44] VITALS: PULSE 94; RESP 16; O2SAT 94
[2022-09-24] MEDS: ceFAZolin 2,000 MG in sodium chloride 0.9% (plus) 50 ML 100 MG IV (10:34)
[2022-09-24] MEDS: predniSONE 10 mg Tablet PO (10:35)
[2022-09-24] MEDS: ferrous sulfate EC 325 mg Tablet PO (10:35)
[2022-09-24] MEDS: sennosides-docusate Tablet 2 TAB PO (10:35)
[2022-09-24] MEDS: levothyroxine 50 mcg Tablet PO (10:35)
[2022-09-24] MEDS: aspirin 325 mg EC Tablet PO (10:35)
[2022-09-24] MEDS: pantoprazole DR 40 mg Tablet PO (10:35)
[2022-09-24] MEDS: sodium bicarbonate 650 mg Tablet PO (10:35)
[2022-09-24] MEDS: iron polysaccharide complex 150 mg Capsule PO (10:35)
[2022-09-24] MEDS: metformin 500 mg Tablet 1000 MG PO (10:35)
[2022-09-24] MEDS: lisinopril 10 mg Tablet PO (10:36)
[2022-09-24] MEDS: ropinirole 0.25 mg Tablet 0.5 MG PO (10:36)
[2022-09-24] MEDS: calcium carbonate 500 mg Chew Tablet 1000 MG PO (10:36)
[2022-09-24] MEDS: multivitamin therapeutic Tablet 1 TAB PO (10:36)
[2022-09-24] MEDS: duloxetine 30 mg Capsule PO (10:36)
[2022-09-24] MEDS: atorvastatin 40 mg Tablet 20 MG PO (10:37)
[2022-09-24] MEDS: TRAMadol 50 mg Tablet 150 MG PO (10:38)
[2022-09-24 12:00] VITALS: BP 102/69; PULSE 95; RESP 16; TEMP 36.4; O2SAT 94
--- NOTE | 2022-09-24 12:11 | P.DS_ITS ---
Discharge Providers Date of Admission: 09/23/22 09:56 Date of Discharge: September 24, 2022 Attending Provider at Admission: Starla Andrews MD Attending Provider at Discharge: Starla Andrews MD Primary Care Provider: TAI Perez Diagnoses at Discharge Discharge Diagnosis (1) S/P total right hip arthroplasty: Status: Acute Permanent problem details: Date of procedure: September 23, 2022 Diagnosis: Severe degenerative osteoarthritis of the right hip Procedure done: Right total hip arthroplasty Implants: The [place] total hip system with a size 52 mm by E alpha code Trident II Tritanium acetabular shell with an MDM liner size 42 inner diameter by E alpha code. A size 6 Accolade II 127? neck angle hip stem with a size 28 mm x - 2.7 mm Biolox delta ceramic femoral head and a baptist MDM X3 insert size 42E (2) Primary osteoarthritis of right hip: Status: Acute Reason for Visit Reason for Visit: Brief History: This is a 77-year-old gentleman presenting today for right total hip art hroplasty. Patient states the pain has been occurring for years. Patient states that the pain is to the right hip, groin, and radiates down to the knee. Patient denies any buttocks or lumbar pain. Patient states that the pain increases with prolonged walking. Patient states the pain wakes him at night. Patient has began using a cane with ambulation due to the pain.? The patient was seen preoperati rosalinda in my office.? Consents were signed after questions were answered and the surgical procedure was further discussed.? The patient wished to proceed with right total hip arthroplasty. Physical Exam Const: COMMON NORMALS: no acute distress, average body habitus, patient oriented x3 and alert GENERAL APPEARANCE: cooperative and comfortable ORIENTATION/CONSCIOUSNESS: Yes awake HENMT: COMMON NORMALS: normocephalic and atraumatic HEAD & SCALP: normocephalic and atraumatic Eye: GENERAL EYE: appearance normal, both eyes and all related structures Chest: COMMONS NORMALS: normal inspection of the chest Resp: COMMON NORMALS: normal respiratory effort EFFORT & INSPECTION: Yes able to speak in complete sentences and Yes symmetric chest movement Extremity: RIGHT LOWER EXTREMITY: Yes hip joint (Dressing dry and intact) Right hip: Yes inspection (No bruising or drainage), Yes palpation (Soft without tenderness to palpation), Yes ROM (Not evaluated) and Yes neurovascular exam (Intact distally with no evidence of DVT) Neuro: COMMON NORMALS: patient oriented x3 SENSORIUM/ORIENTATION: Yes alert Psych: COMMON NORMALS: mental status grossly normal APPEARANCE: Yes grossly normal ATTITUDE: Yes calm and Yes engaged ATTENTION/CONCENTRATION: Yes attention grossly intact Skin: COMMON NORMALS: no rashes or lesions noted GENERAL SKIN EXAM: no rashes or lesions noted Urinary Catheter Management: Shipman: Cath Placed During This Visit: yes Reason for Continuing Indwelling Catheter: Acute Urinary Retention or Obstruction Urinary Catheter Date of Insertion: 09/23/22 Urinary Catheter Time of Insertion: 07:30 Discharge Data Studies Completed and Pending Completed Studies During Hospitalization Category Date Time Status XR pelvis 1-2V* [id number] Routine Exams 09/23/22 09:45 Completed Radiology Impressions Pelvis X-Ray 09/23/22 09:45 IMPRESSION: 1. Right total hip prosthesis in place. Laboratory Results WBC 9.3 10^3/uL (4.0-10.0) 09/24/22 05:00 RBC 4.16 10^6/uL (4.1-5.3) 09/24/22 05:00 Hgb 12.4 g/dL (11.7-16.6) 09/24/22 05:00 Hct 38.0 % (42.0-52.0) L 09/24/22 05:00 MCV 91.3 fl (80-94) 09/24/22 05:00 MCH 29.8 pg (28.0-34.0) 09/24/22 05:00 MCHC 32.6 g/dL (30.0-36.0) 09/24/22 05:00 RDW 15.1 % (12.1-15.1) 09/24/22 05:00 Plt Count 194 10^3/cmm (130-400) 09/24/22 05:00 MPV 10.9 fL (7.4-10.4) H 09/24/22 05:00 Neut % (Auto) 64.7 % 09/24/22 05:00 Lymph % (Auto) 19.8 % 09/24/22 05:00 [place] % (Auto) 12.6 % 09/24/22 05:00 Eos % (Auto) 1.5 % 09/24/22 05:00 Baso % (Auto) 0.8 % 09/24/22 05:00 Neut # (Auto) 6.00 10^3/uL (1.8-7.7) 09/24/22 05:00 Lymph # (Auto) 1.8 10^3/uL (0.8-4.8) 09/24/22 05:00 [place] # (Auto) 1.2 10^3/uL (0.2-0.9) H 09/24/22 05:00 Eos # (Auto) 0.1 10^3/uL (0.0-0.8) 09/24/22 05:00 Baso # (Auto) 0.1 10^3/uL (0.0-0.1) 09/24/22 05:00 Nucleated RBC % (auto) 0 % 09/24/22 05:00 Nucleated RBCs # 0.0 /100WBC 09/24/22 05:00 Sodium 139 mmol/L (136-145) 09/24/22 05:00 Potassium 4.6 mmol/L (3.5-5.1) 09/24/22 05:00 Chloride 98 mmol/L (98-107) 09/24/22 05:00 Carbon Dioxide 27 mmol/L (22-29) 09/24/22 05:00 Anion Gap 18.6 (5-19) 09/24/22 05:00 BUN 35 mg/dL (8-23) H 09/24/22 05:00 Creatinine 2.1 mg/dL (0.7-1.2) H 09/24/22 05:00 GFR Calculation Not Reportable 09/24/22 05:00 Glucose 119 mg/dL (65-115) H 09/24/22 05:00 POC Glucose 125 mg/dL (70-110) H 09/24/22 06:37 Calculated Osmolality 297 mOsm/kg (285-295) H 09/24/22 05:00 Calcium 7.9 mg/dL (8.5-10.5) L 09/24/22 05:00 Vitals Last Vital Signs Temp 98.0 F 09/24/22 07:39 Pulse 94 09/24/22 08:44 Resp 16 09/24/22 08:44 BP 160/89 09/24/22 07:39 Pulse Ox 94 07/21/23 08:44 O2 Del Method Room Air 07/21/23 08:44 O2 Flow Rate 6 09/23/22 09:44 Discharge Plan Discharge Patient Disposition: Home Condition: Stable Prescriptions: New acetaminophen 500 mg Tablet 1,000 mg PO Q8H 15 Days Qty: 90 0RF aspirin 325 mg Tablet,Delayed Release (Dr/Ec) 325 mg PO DAILY 30 Days Qty: 30 0RF celecoxib 200 mg Capsule 200 mg PO 1XD 30 Days Qty: 30 0RF Continued duloxetine 30 mg capsule, delayed rel sprinkle 30 mg PO DAILY pravastatin 80 mg tablet 80 mg PO DAILY levothyroxine 50 mcg capsule 50 mcg PO DAILY sodium bicarbonate 650 mg tablet 650 mg PO TID tramadol 50 mg tablet See Rx Instructions PO BID Rx Instructions: 3 tablets AM, 2 tablets PM orally twice a day; ropinirole 0.5 mg tablet 0.5 mg PO DAILY lisinopril 10 mg tablet 10 mg PO DAILY metformin 500 mg tablet 1,000 mg PO DAILY ferrous sulfate 325 mg (65 mg iron) tablet 325 mg PO DAILY prednisone 10 mg tablet 10 mg PO DAILY Qty: 90 1RF allopurinol 100 mg tablet 200 mg PO DAILY Qty: 180 1RF leflunomide 20 mg tablet 20 mg PO DAILY Qty: 90 0RF omeprazole 20 mg tablet,delayed release (DR/EC) 20 mg PO DAILY Qty: 90 1RF Jardiance 25 mg tablet 25 mg PO DAILY Discharge Orders: Discharge Order (Routine); Ordered 09/24/22 Ordered By: Starla Andrews Other Ambulatory Orders: Physical Therapy Eval and Treat Outpatient (Order) Timeframe: 2 Days Facility: [facility] - Location: Physical Therapy [place] Ordered By: Starla Andrews Referrals: Starla Andrews MD [Physician] - 10/13/22 8:30 am Discharge Diet: Advance as tolerated and Usual diet Discharge Activity: Resume usual activity, Increase activity as tolerated, Limit activity as instructed, Use walker/crutches as instructed and As per PT/OT instructions Patient Instructions: Opioid Safety Activity Restrictions/Additional Instructions: Posterior hip precautions. Physical therapy for gait training, ambulation, and strengthening. Keep wound covered until the dressing comes off on its own or we will remove it in the office. Discharge Attestations Time Spent in Discharge Care*: greater than 30 min Specific Discharge Activities: educating patient, documenting/other paperwork and evaluating patient/reviewing data Quality Metrics Clinical Quality Measures [ No reported AMI, CVA or VTE this stay] Coding Level of Care Code Acute Code for Chg Fwd Diagnoses S/P total right hip arthroplasty Z96.641 Primary osteoarthritis of right hip M16.11
[2022-09-24 13:11] VITALS: BP 102/69; PULSE 95; RESP 16; TEMP 36.4; O2SAT 94
== END 2022-09-24 13:12 | disposition home or self-care (01) ==
LOC: MEDSURG 09:56
PROVIDERS: Admitting Provider Specialist; PCP Nurse Practitioner Family; Visit Provider Specialist
PROC: (CPT 27130; principal; 2022-09-23 07:00)
DX: M16.11 Unilateral primary osteoarthritis, right hip (principal); Z79.52 Long term (current) use of systemic steroids; Z79.84 Long term (current) use of oral hypoglycemic drugs; I12.9 Hypertensive chronic kidney disease with stage 1 through stage 4 chronic kidney disease, or unspecified chronic kidney disease; I73.9 Peripheral vascular disease, unspecified; E11.9 Type 2 diabetes mellitus without complications; E78.5 Hyperlipidemia, unspecified; E03.9 Hypothyroidism, unspecified; N18.9 Chronic kidney disease, unspecified; M06.042 Rheumatoid arthritis without rheumatoid factor, left hand; M06.041 Rheumatoid arthritis without rheumatoid factor, right hand; Z87.891 Personal history of nicotine dependence; F10.90 Alcohol use, unspecified, uncomplicated
CPT/HCPCS: 27130; 36415; 36416; 51702; 72170; 80048; 82962; 85025; 97110; 97116; 97161; 97165; 97530; C1776; G0378; J0131; J0690; J2250; J2371; J2704; J3370; J7030; J7050; J7512

== ENCOUNTER 2022-09-30 06:48 | Outpatient (RCR) | payer MEDICARE, SELFPAY | END 2022-10-04 23:59 | disposition home or self-care (01) | LOC: SPT 06:48 | PROVIDERS: Visit Provider Specialist | DX: M16.11 Unilateral primary osteoarthritis, right hip (principal) | CPT/HCPCS: 97161 ==

== ENCOUNTER 2022-09-30 08:22 | Outpatient (CLI) | payer MEDICARE, SELFPAY ==
[2022-09-30 09:03] LABS: Basophils # 0.1 10^3/uL (0.0-0.1); Basophils % 1.2 %; Eosinophils # 0.2 10^3/uL (0.0-0.8); Eosinophils % 1.8 %; Hematocrit 42.3 % (42.0-52.0); Hemoglobin 13.5 g/dL (11.7-16.6); Lymphocytes # 2.6 10^3/uL (0.8-4.8); Lymphocytes % 28.3 %; Mean Corpuscular HGB Conc 31.9 g/dL (30.0-36.0); Mean Corpuscular Hemoglobin 28.9 pg (28.0-34.0); Mean Corpuscular Volume 90.6 fl (80-94); Mean Platelet Volume 10.1 fL (7.4-10.4); Monocytes # 1.1 10^3/uL (0.2-0.9); Monocytes % 11.4 %; Neutrophils # 5.23 10^3/uL (1.8-7.7); Neutrophils % 56.5 %; Nucleated Red Blood Cells % 0 %; Platelet Count 325 10^3/cmm (130-400); Red Blood Count 4.67 10^6/uL (4.1-5.3); White Blood Count 9.3 10^3/uL (4.0-10.0)
[2022-09-30 09:29] LABS: Creatinine Urine, Random 221 mg/dL (39-259)
[2022-09-30 09:38] LABS: Albumin Level 3.4 g/dL (3.5-5.2); Anion Gap 21.8 (5-19); Blood Urea Nitrogen 16 mg/dL (8-23); Calcium 7.7 mg/dL (8.5-10.5); Carbon Dioxide 23 mmol/L (22-29); Chloride 95 mmol/L (98-107); Glucose 114 mg/dL (65-115); Phosphorus 1.8 mg/dL (2.5-4.5); Potassium 3.8 mmol/L (3.5-5.1); Sodium 136 mmol/L (136-145)
[2022-09-30 09:39] LABS: Alanine Aminotransferase 12 U/L (0-41); Albumin Level 3.4 g/dL (3.5-5.2); Alkaline Phosphatase 96 U/L (40-130); Aspartate Amino Transferase 36 U/L (0-40); C Reactive Protein 54.7 mg/L (0.0-4.9); Calcium 7.7 mg/dL (8.5-10.5); Globulin 2.4 g/dL (1.3-4.6); Total Bilirubin 0.4 mg/dL (0.15-1.2); Total Protein 5.8 g/dL (6.6-8.7)
[2022-09-30 09:44] LABS: Microalbum Creatinine Ratio Ur 276 mg/dL (0-20); Microalbumin Random Urine 61 ug/dL (0-20)
[2022-09-30 09:45] LABS: Parathyroid Hormone 73.1 pg/mL (15-65)
== END 2022-09-30 08:23 | disposition home or self-care (01) ==
PROVIDERS: Absent Provider Registered Nurse; PCP Nurse Practitioner Family; Visit Provider Internal Medicine Rheumatology
DX: M10.9 Gout, unspecified (principal); M19.90 Unspecified osteoarthritis, unspecified site; Z79.899 Other long term (current) drug therapy
CPT/HCPCS: 36415; 80069; 80076; 82044; 82310; 82565; 83970; 85025; 86140

== ENCOUNTER → 2022-10-04 11:28 | Outpatient (BNVA) | payer MEDICARE, SELFPAY | PROVIDERS: PCP Nurse Practitioner Family; Visit Provider Nurse Practitioner Family | DX: E88.2 Lipomatosis, not elsewhere classified (principal); Z80.8 Family history of malignant neoplasm of other organs or systems; L81.4 Other melanin hyperpigmentation; D22.5 Melanocytic nevi of trunk; L85.3 Xerosis cutis; L57.8 Other skin changes due to chronic exposure to nonionizing radiation; L57.0 Actinic keratosis | CPT/HCPCS: 17000; 17003; 99213 ==

== ENCOUNTER 2022-10-05 06:00 | Outpatient (RCR) | payer MEDICARE, SELFPAY | END 2022-11-04 23:59 | disposition home or self-care (01) | LOC: SPT 06:00 | PROVIDERS: PCP Nurse Practitioner Family; Visit Provider Specialist | DX: M16.11 Unilateral primary osteoarthritis, right hip (principal) | CPT/HCPCS: 97110; 97530 ==

== ENCOUNTER → 2022-10-18 08:34 | Outpatient (BNVA) | payer MEDICARE, SELFPAY | PROVIDERS: PCP Nurse Practitioner Family; Visit Provider Specialist | DX: Z96.641 Presence of right artificial hip joint (principal); M16.11 Unilateral primary osteoarthritis, right hip | CPT/HCPCS: 73502; 99024 ==

== ENCOUNTER → 2022-12-06 10:23 | Outpatient (BNVA) | payer MEDICARE, SELFPAY | PROVIDERS: PCP Nurse Practitioner Family; Visit Provider Internal Medicine Rheumatology | DX: M06.041 Rheumatoid arthritis without rheumatoid factor, right hand (principal); M06.042 Rheumatoid arthritis without rheumatoid factor, left hand; M10.9 Gout, unspecified; Z79.899 Other long term (current) drug therapy; N18.9 Chronic kidney disease, unspecified; M11.20 Other chondrocalcinosis, unspecified site | CPT/HCPCS: 99214 ==

== ENCOUNTER → 2022-12-13 09:29 | Outpatient (BNVA) | payer MEDICARE, SELFPAY | PROVIDERS: PCP Nurse Practitioner Family; Visit Provider Specialist | DX: Z96.641 Presence of right artificial hip joint (principal); M10.9 Gout, unspecified; S90.32XA Contusion of left foot, initial encounter; W19.XXXA Unspecified fall, initial encounter | CPT/HCPCS: 73502; 73630; 99213 ==

== ENCOUNTER 2022-12-28 10:16 | Emergency (ER) | payer MEDICARE, SELFPAY ==
[2022-12-28 10:24] VITALS: BP 134/84; PULSE 111; RESP 18; TEMP 36.8; O2SAT 99; BMI 29.4
--- NOTE | 2022-12-28 10:24 | W.ED.EXTPRO ---
HPI - Extremity Problem General: Stated complaint: LT ankle inj Time Seen by Provider: 12/28/22 10:17 PFSH ED PFSH: Medical History Asthma Calcium pyrophosphate deposition disease (CPPD) Carotid artery disease CKD (chronic kidney disease) Colon polyps Degenerative arthritis Gout HTN (hypertension) Hyperlipidemia Hyperuricemia Hypothyroidism Inflammatory arthritis Prostate cancer Seronegative rheumatoid arthritis of both hands Type 2 diabetes mellitus Surgical History H/O hand surgery H/O prostatectomy (2017) Radical prostatectomy for prostate cancer History of left knee replacement History of left shoulder replacement History of right shoulder replacement (07/15/21) Right reverse total shoulder Hx of cataract surgery Hx of shoulder surgery (08/21/21) Closed reduction of right glenohumeral joint for dislocated right reverse total shoulder Family History Father Heart disease CAD (coronary artery disease), Onset Age: 80 Other Cancer Denies family history of Diabetes Clotting disorder Dementia Hyperlipidemia Psychiatric illness Chronic kidney disease (CKD) Suicide Anesthesia complication Bleeding disorder Lung disease Hypertension Stroke Social History Smoking and tobacco/nicotine status: former use of tobacco/nicotine Quit status (tobacco/nicotine): has quit using Year quit tobacco: 2018 - 0.5 PPD x 15 Years Alcohol intake: current Alcohol intake frequency: 0-2 Drinks per Day Alcohol type: hard liquor Substance/Drug Use: never Lives independently: Yes Household members: spouse Marital status: service: No Current occupational status: retired Do you think of yourself as: Straight/Heterosexual Current gender identity: Male Discharge Plan Discharge Condition: Stable Prescriptions: No Action duloxetine 30 mg capsule, delayed rel sprinkle 30 mg PO DAILY pravastatin 80 mg tablet 80 mg PO DAILY levothyroxine 50 mcg capsule 50 mcg PO DAILY sodium bicarbonate 650 mg tablet 650 mg PO TID tramadol 50 mg tablet See Rx Instructions PO BID Rx Instructions: 3 tablets AM, 2 tablets PM orally twice a day; ropinirole 0.5 mg tablet 0.5 mg PO DAILY lisinopril 10 mg tablet 10 mg PO DAILY metformin 500 mg tablet 1,000 mg PO DAILY allopurinol 100 mg tablet 200 mg PO DAILY Qty: 180 1RF leflunomide 20 mg tablet 20 mg PO DAILY Qty: 90 0RF prednisone 10 mg tablet 10 mg PO DAILY PRN (Reason: joint pain) Qty: 90 1RF sulfasalazine 500 mg tablet 0.5 g PO BID Qty: 60 3RF Rx Instructions: Take 1 tab daily x1wk then stay on 1 tab twice daily.... give with food (meal/snack) ferrous sulfate 325 mg (65 mg iron) tablet 325 mg PO DAILY omeprazole 20 mg tablet,delayed release (DR/EC) 20 mg PO DAILY Qty: 90 1RF Jardiance 25 mg tablet 25 mg PO DAILY prednisone 20 mg tablet 20 mg PO .COMPLEX Qty: 8 0RF Rx Instructions: 20 mg orally Days 1-3: 2 tabs. Days 4-5: 1 tab. Referrals: Tiarra Armendariz FNP [Primary Care Provider] - Coding Level of Care Code ED Director Of Special Events for Shon Mosquera
--- NOTE | 2022-12-28 10:31 | XR_ITS ---
WS: [id number] Exam: XR ankle LT min 3V* [id number] Date/Time of Exam: 12/28/2022 10:32 AM Reason For Exam: injury There is medial subluxation of the tibia upon the talar dome. No obvious acute fracture is noted. The fibula is intact. Several soft tissue calcifications along the medial aspect of the ankle. IMPRESSION: 1. Medial subluxation of the tibia upon the talar dome. No obvious acute fracture. Deformity of the a nkle.
--- NOTE | 2022-12-28 10:31 | W.ED.LOWEXIN ---
HPI - Extremity Injury (Lower) General: Chief Complaint: Extremity Injury, Lower Stated Complaint: LT ankle inj Time Seen by Provider: 12/28/22 10:17 Source: patient and family Mode of arrival: wheelchair Limitations: no limitations History of Present Illness: Patient is a 77-year-old male who presents to ED today with presumably his significant other for concerns of left ankle pain/injury. Significant other states around 12/13 he had an injury to the left foot and an associated gout flare to the left ankle. She states they were seen orthopedics and had negative left foot films performed. He was placed on prednisone for his gout. He states symptoms seem to be improving but states approximately 2 to 3 days ago he was walking and he twisted the left ankle and has had increasing pain since. MD complaint: ankle injury Onset (ago): day(s) Injury: Left: ankle Place: home Severity: moderate Relieving factors: immobilization Exacerbating factors: weight bearing Associated symptoms: Reports no associated symptoms Other symptoms: none Review of Systems Const: Denies: fever(s), chills, body aches, fatigue or malaise Card: Denies: chest pain Resp: Denies: dyspnea Musc: Reports: joint pain (L ankle) and joint swelling (L ankle); Denies: neck pain, back pain, extremity pain or extremity swelling Neuro: Denies: numbness in extremities or sensory changes PFS ED PFSH: Medical History Asthma Calcium pyrophosphate deposition disease (CPPD) Carotid artery disease CKD (chronic kidney disease) Colon polyps Degenerative arthritis Gout HTN (hypertension) Hyperlipidemia Hyperuricemia Hypothyroidism Inflammatory arthritis Prostate cancer Seronegative rheumatoid arthritis of both hands Type 2 diabetes mellitus Surgical History H/O hand surgery H/O prostatectomy (2017) Radical prostatectomy for prostate cancer History of left knee replacement History of left shoulder replacement History of right shoulder replacement (07/15/21) Right reverse total shoulder Hx of cataract surgery Hx of shoulder surgery (08/21/21) Closed reduction of right glenohumeral joint for dislocated right reverse total shoulder Family History Father Heart disease CAD (coronary artery disease), Onset Age: 80 Other Cancer Denies family history of Diabetes Clotting disorder Dementia Hyperlipidemia Psychiatric illness Chronic kidney disease (CKD) Suicide Anesthesia complication Bleeding disorder Lung disease Hypertension Stroke Social History Smoking and tobacco/nicotine status: former use of tobacco/nicotine Quit status (tobacco/nicotine): has quit using Year quit tobacco: 2018 - 0.5 PPD x 15 Years Alcohol intake: current Alcohol intake frequency: 0-2 Drinks per Day Alcohol type: hard liquor Substance/Drug Use: never Lives independently: Yes Household members: spouse Marital status: service: No Current occupational status: retired Do you think of yourself as: Straight/Heterosexual Current gender identity: Male Physical Exam Const: COMMON NORMALS: no acute distress, patient oriented x3, no limitations, alert and well nourished Resp: COMMON NORMALS: normal respiratory effort and clear to auscultation bilaterally AUSCULTATION: clear to auscultation bilaterally Cardio: COMMON NORMALS: regular rate and regular rhythm RATE: regular rate RHYTHM: regular rhythm Extremity: COMMON NORMALS: no calf tenderness and no pedal edema GENERAL: Yes normal exam except as noted LEFT LOWER EXTREMITY: Yes ankle joint and Yes foot & digits OTHER: Patient appears to have mild chronic appearing bilateral LE atrophy. He has chronic appearing deformities to bilateral ankles presumedly from pes planus as well as chronic gout/RA but left ankle appears significantly worse with acute appearing injury. Both feet are slightly everted. He has several old appearing areas of ecchymosis scattered throughout anterior left lower extremity without bony tenderness. He has swelling/effusion and tenderness to medial ankle with overlying warmth and ecchymosis. There does appear to be acute injury/subluxation present. He has no bony tenderness to the left foot. His DP/PT pulses bilaterally area easily palpable but bilateral feet are very cool to the touch. states he always has cold feet. Cap refill is brisk. Neuro: COMMON NORMALS: patient oriented x3, moves all extremities, no focal motor deficits and no sensory deficits noted SENSORIUM/ORIENTATION: Yes alert Course Consultations: Consultation #1: Dr. Andrews-yvonne and will follow up in office Vital Signs: Vital signs: Vital Signs Temperature 98.2 F 12/28/22 10:24 Pulse Rate 111 H 12/28/22 10:24 Respiratory Rate 18 12/28/22 10:24 Blood Pressure 134/84 12/28/22 10:24 Pulse Oximetry 99 12/28/22 10:24 Oxygen Delivery Me thod Room Air 12/28/22 10:24 MDM - Extremity Injury (Lower) Medical Decision Making XR showing medial subluxation of tibiotalar dome. No acute fractures noted. Spoke to Dr. Andrews and we will splint, instructions for non-weight bearing and she will follow up in office. All radiology interpretation(s) finalized by discharge Discharge Plan Discharge Patient Disposition: Home Clinical Impression: Medial subluxation of proximal end of left tibia Qualifiers: Encounter type: initial encounter Qualified Code(s): S83.132A - Medial subluxation of proximal end of tibia, left knee, initial encounter Condition: Stable Prescriptions: New hydrocodone-acetaminophen 5-325 mg tablet 1 tab PO Q6H PRN (Reason: pain) Qty: 14 0RF No Action duloxetine 30 mg capsule, delayed rel sprinkle 30 mg PO DAILY pravastatin 80 mg tablet 80 mg PO QPM levothyroxine 50 mcg capsule 50 mcg PO DAILY sodium bicarbonate 650 mg tablet 650 mg PO TID tramadol 50 mg tablet See Rx Instructions PO BID Rx Instructions: 3 tablets AM, 2 tablets PM orally twice a day; ropinirole 0.5 mg tablet 0.5 mg PO DAILY lisinopril 10 mg tablet 10 mg PO DAILY allopurinol 100 mg tablet 200 mg PO DAILY Qty: 180 1RF leflunomide 20 mg tablet 20 mg PO DAILY Qty: 90 0RF prednisone 10 mg tablet 10 mg PO DAILY PRN (Reason: joint pain) Qty: 90 1RF sulfasalazine 500 mg tablet 0.5 g PO BID Qty: 60 3RF Rx Instructions: Take 1 tab daily x1wk then stay on 1 tab twice daily.... give with food (meal/snack) omeprazole 20 mg tablet,delayed release (DR/EC) 20 mg PO DAILY Qty: 90 1RF Discharge Orders: Discharge ED (Routine); Ordered 12/28/22 Ordered By: Ute Shetty Referrals: Tiarra Armendariz FNP [Primary Care Provider] - Patient Instructions: Opioid Safety, Pain Management Activity Restrictions/Additional Instructions: As we discussed no weightbearing until seen by orthopedics. You need to stay in your splint at all times until this appointment. You need to ice and elevate the extremity. Case management should reach out to you shortly to help set you up with a follow-up orthopedic appointment. Coding Level of Care Code ED Director [employer] for [employer]
--- NOTE | 2022-12-28 12:01 | DCPLANNER ---
Sent Message to office staff for referral - 12/28/22 1201 JG.
== END 2022-12-28 12:54 | disposition home or self-care (01) ==
PROVIDERS: Emergency Provider Physician Assistant; PCP Nurse Practitioner Family
DX: S83.132A Medial subluxation of proximal end of tibia, left knee, initial encounter (principal); Z87.891 Personal history of nicotine dependence; I12.9 Hypertensive chronic kidney disease with stage 1 through stage 4 chronic kidney disease, or unspecified chronic kidney disease; E11.22 Type 2 diabetes mellitus with diabetic chronic kidney disease; N18.9 Chronic kidney disease, unspecified; E78.5 Hyperlipidemia, unspecified; Z85.46 Personal history of malignant neoplasm of prostate; X50.1XXA Overexertion from prolonged static or awkward postures, initial encounter
CPT/HCPCS: 73610; 99283

== ENCOUNTER → 2022-12-29 07:46 | Outpatient (BNVA) | payer MEDICARE, SELFPAY | PROVIDERS: PCP Nurse Practitioner Family; Visit Provider Podiatrist Foot & Ankle Surgery | DX: S93.432A Sprain of tibiofibular ligament of left ankle, initial encounter (principal); S93.422A Sprain of deltoid ligament of left ankle, initial encounter; M76.821 Posterior tibial tendinitis, right leg; M76.822 Posterior tibial tendinitis, left leg; Z91.81 History of falling; S93.05XA Dislocation of left ankle joint, initial encounter; W19.XXXA Unspecified fall, initial encounter | CPT/HCPCS: 27840; 29405; 73610; 99204 ==

== ENCOUNTER 2023-01-07 05:43 | Day surgery (SDC) | payer MEDICARE, SELFPAY ==
[2023-01-07] VITALS (10 sets, daily range): BP systolic 98–152; BP diastolic 68–92; PULSE 89–127; RESP 16–18; TEMP 36.1–37.1; O2SAT 95–100; BMI 29.0
--- NOTE | 2023-01-07 | XR_ITS ---
WS: [id number] C-ARM RADIOGRAPHS LEFT ANKLE; 1 IMAGES HISTORY: orif left ankle , or pic COMPARISON: None available. Intraoperative imaging during fixation across the syndesmosis of the ankle. Short plate over the late ral malleolus. There are 2 screws extending through the fibula into the tibia. IMPRESSION: Intraoperative fixation at the tibiotalar joint.
[2023-01-07] MEDS: sodium chloride 0.9% 1,000 ML 30 ML IV (06:18)
[2023-01-07 06:19] LABS: Glucose Point of Care 125 mg/dL (70-110)
--- NOTE | 2023-01-07 06:21 | P.HPUD_ITS ---
Surgery/Procedure H&P Update DATE OF PROCEDURE: January 07, 2023 DATE H&P PERFORMED: 12/29/22 H&P UPDATE INFORMATION: I have reviewed H&P completed within last 30 days, I have examined patient prior to procedure, No changes to prior documentation and [place] [facility] [place] indicated PREOP DIAGNOSIS: Left ankle fracture PLANNED PROCEDURE: Operation Date: 01/07/23 07:00 Proposed Procedures p Open reduction internal fixation left ankle syndesmosis, and?Secondary medial collateral ligament repair, left ankle.? [id number],S93.432A,S93.422A(Left) - Sai Diane DPM s Ligament Repair Ankle Collateral Ligament Repair(Left) - Sai Diane DPM
--- NOTE | 2023-01-07 06:52 | PM.OP ---
Operative Report Date of procedure: January 07, 2023 Pre-op diagnosis: Left ankle syndesmotic tear. Left deltoid ligament injury. Post-op diagnosis: Left ankle syndesmotic tear. Left deltoid ligament injury. Left Maisonneuve fracture Post-op findings: Left Maisonneuve fracture Procedure done: Open reduction internal fixation left ankle syndesmosis. CPT code Implants: [place] 3-hole one third tubular plate. [place] reactive screw syndesmotic screw x2 3-0 Vicryl, 2-0 Vicryl, skin mark Specimens removed/disposition: None Pathology: None Surgeon: Sai Diane DPM Shipping Receiving Clerk: Jackie Lezama Estimated blood loss: 5 35 IV fluids: 0 Urine output: 0 Complications: None Findings: Maisonneuve fracture, left Brief History: 77-year-old pleasant male presents with left ankle dislocation with syndesmotic disruption and deltoid ligament disruption, 1 week out from injury approximately. X-ray shows talus dislocated laterally.? Performed closed reduction in clinic and short leg cast was applied, repeat x-ray shows congruent ankle mortise and successful reduction of the disc location of the left ankle.? Recommended syndesmotic ORIF and deltoid ligament repair will require staged procedure due to soft tissue quality, planning on Tuesday next January 07.? I reviewed at length with the patient, the risks, potential complications, benefits, alternatives, expectations, and typical outcomes associated with the surgery. The risks and potential complications were explained in detail, including but not limited to infection, wound dehiscence or soft tissue complications, bleeding and hematoma, chronic edema, neuritis or nerve damage producing numbness or chronic pain, CRPS, failure to relieve pain or worsening pain, thick / painful / unsightly scar, limited motion / stiffness, malposition, delayed union, malunion, or nonunion, fracture, reaction to implants, anesthetic complications, venous thromboembolism, and deformity recurrence.? I discussed the notion of no regrets with the patient as it pertains to complications and outcomes. The patient seemed to understand the nature of the proposed care and required convalescence. They asked appropriate questions, answered to their satisfaction. They are aware no guarantees can be made as to a satisfactory outcome and they understand there may be other possible unforeseen complications or outcomes not listed here that will be treated accordingly if they arise. There were no written or implied guarantees given to the patient. They gave informed consent to proceed. Procedure: Under mild sedation the patient was brought to the operating room and remained on the gurney in supine position. A timeout was performed. Anesthesia was administered by the anesthesia service. Local anesthesia injected by myself 10 cc of Marcaine at the left medial ankle, popliteal block per anesthesia administered preoperatively at the left lower extremity. Well-padded pneumatic tourniquet applied to the left high thigh. The left lower extremity was scrubbed, prepped and draped utilizing normal aseptic technique. Left leg was elevated and thigh tourniquet inflated to 250 mmHg. Attention was directed to the left ankle, gross instability with lateral translation of the talus appreciated. A linear longitudinal incision was made lateral to the distal fibula through skin with a #15 blade with dissection carried down through subcutaneous tissue to the layer of periosteum utilizing sharp and blunt technique. Care was taken to retract and preserve neurovascular and tendinous structures. All bleeders were ligated and cauterized as necessary. left left 3 hole one third tubular plate was placed lateral to the fibula with excellent bony apposition followed by fixation of the syndesmosis which was appreciated to be grossly interrupted with increased tib-fib clear space and medial gutter widening with stressing the ankle. Fixation of the syndesmosis was achieved with parallel screws starting 1.5 cm proximal to the ankle joint parallel to the ankle mortise. These were [place] reactive screw x2 with excellent bony apposition and compression noted, congruent ankle mortise and fixation at the syndesmosis appreciated intraoperatively with smooth range of motion and no diastases with stressing the fibula laterally with cotton hook test maneuver. Tib-fib views intraoperatively of the left lower extremity demonstrated a Maisonneuve fracture that is nondisplaced. Improved stability at the ankle appreciated intraoperatively. No deltoid ligament repair was indicated. The incision was irrigated with copious amounts of sterile saline solution. Closure was achieved with 2-0 Vicryl at periosteum, 3-0 Vicryl subcutaneous tissue and skin mark. Dressing consisting of Adaptic, 4 x 4's, Kerlix followed by application of multi layer of cast padding and a short leg cast with ankle in neutral position. Tourniquet was deflated and a prompt hyperemic response was noted to the distal digits of the left foot. Patient tolerated the procedure well and was transferred to the PACU with vital signs stable and vascular status intact. Following a period of postoperative monitoring he will be discharged home. He is to remain strict nonweightbearing to the left lower extremity. He is to elevate his left foot while resting. Was given at home care instructions, scheduled follow-up and my cell phone number to contact with any postoperative questions or concerns. I advised a 81 mg aspirin to be taken once daily starting tomorrow to help potentially reduce the risk of deep vein thrombosis.
[2023-01-07] MEDS: clindamycin 600 MG/50 ML PREMIX 100 MG IV (06:56)
--- NOTE | 2023-01-07 06:57 | ANES.PREANE2 ---
Pre-Anesthetic Assessment Height/Weight: Height 1.7 m Weight 83.915 kg Temp Pulse Resp BP Pulse Ox O2 Del Method 97.0 F L 127 H 18 112/77 100 Room Air 01/07/23 06:03 01/07/23 06:03 01/07/23 06:03 01/07/23 06:03 01/07/23 06:03 01/07/23 06:03 Preop Diagnosis: Left ankle fracture Operation Date: 01/07/23 07:00 Proposed Procedures p Open reduction internal fixation left ankle syndesmosis, and?Secondary medial collateral ligament repair, left ankle.? [id number],S93.432A,S93.422A(Left) - Sai Diane DPM s Ligament Repair Ankle Collateral Ligament Repair(Left) - Sai Diane DPM Familial anesthetic complications: None Was Beta Erica taken within 24 hours: N/A Was Clonidine taken within 24 hours: N/A Last intake: Intake Last Liquid Date 01/06/23 Last Liquid Time 21:00 Last Solid Date 01/06/23 Last Solid Time 18:00 Social Alcohol and No alcohol Exam alert, oriented x 3, clear to auscultation bilaterally and regular rate & rhythm Airway Mallampati: Class IV Dentition: chipped CV/HEM Anemia and Hypertension Chronic Renal Insufficiency Metabolic Hyperlipidemia and Thyroid Disease [facility] Rheumatoid Arthritis Neuropsych Mod R JERRY Anesthetic Plan ASA status: 3 Anesthesia: General and Regional (specify below) Risk of > 500 ml blood loss (7ml/kg in children): No Medications/Allergies Home Medications Medication Instructions Recorded Confirmed Last Taken Type duloxetine 30 mg capsule,delayed 30 mg PO DAILY 07/12/19 01/07/23 01/06/23 History release sprinkle levothyroxine 50 mcg capsule 50 mcg PO DAILY 07/12/19 01/07/23 01/06/23 History pravastatin 80 mg tablet 80 mg PO QPM 07/12/19 01/07/23 01/06/23 History sodium bicarbonate 650 mg tablet 650 mg PO TID 07/12/19 01/07/23 01/06/23 History ropinirole 0.5 mg tablet 0.5 mg PO DAILY 06/17/21 01/07/23 01/06/23 History lisinopril 10 mg tablet 10 mg PO DAILY 12/30/21 01/07/23 01/06/23 History tramadol 50 mg tablet See Rx Instructions PO BID 07/05/22 01/07/23 01/06/23 History omeprazole 20 mg tablet,delayed 20 mg PO DAILY #90 tabs 08/31/22 01/07/23 01/06/23 Rx release allopurinol 100 mg tablet 200 mg PO DAILY #180 tabs 12/06/22 01/07/23 01/06/23 Rx leflunomide 20 mg tablet 20 mg PO DAILY #90 tabs 12/06/22 01/07/23 01/06/23 Rx prednisone 10 mg tablet 10 mg PO DAILY PRN joint pain #90 12/06/22 01/07/23 12/28/22 Rx tabs sulfasalazine 500 mg tablet 0.5 g PO BID #60 tabs 12/06/22 01/07/23 01/06/23 Rx AFO #2 ea 12/29/22 12/29/22 Unknown Rx bedside comode #1 ea 12/29/22 12/29/22 Unknown Rx wheel chair #1 ea 12/29/22 12/29/22 Unknown Rx hydrocodone 5 mg-acetaminophen 325 1 tab PO Q6H PRN pain 7 days #20 01/07/23 Unknown Rx mg tablet tabs Allergies Allergy/AdvReac Type Severity Reaction Status Date / Time Penicillins Allergy Severe ALGY-Hives Verified 01/07/23 06:00 shellfish derived Allergy Severe ALGY-Hives Verified 01/07/23 06:00 esomeprazole [From Nexium] Allergy Intermediate ALGY-Hives Verified 01/07/23 06:00 empagliflozin Allergy Unknown Verified 01/07/23 06:00 [From Jardiance] Neoprene Allergy Severe ALGY-Hives Uncoded 01/07/23 06:00 Current Medications Generic Name Dose Route Start Last Admin Trade Name Freq PRN Reason Stop Dose Admin Sodium Chloride 1,000 mls @ 30 mls/hr 01/07/23 06:00 01/07/23 06:18 Sodium Chloride 0.9% IV 01/08/23 05:59 30 mls/hr .Q24H MANDO Administration PFSH Anesthesia Medical History Asthma Calcium pyrophosphate deposition disease (CPPD) Carotid artery disease CKD (chronic kidney disease) Colon polyps Degenerative arthritis Gout HTN (hypertension) Hyperlipidemia Hyperuricemia Hypothyroidism Inflammatory arthritis Prostate cancer Seronegative rheumatoid arthritis of both hands Type 2 diabetes mellitus Surgical History H/O hand surgery H/O prostatectomy (2017) Radical prostatectomy for prostate cancer History of left knee replacement History of left shoulder replacement History of right shoulder replacement (07/15/21) Right reverse total shoulder Hx of cataract surgery Hx of shoulder surgery (08/21/21) Closed reduction of right glenohumeral joint for dislocated right reverse total shoulder Family History Father Heart disease CAD (coronary artery disease), Onset Age: 80 Other Cancer Denies family history of Diabetes Clotting disorder Dementia Hyperlipidemia Psychiatric illness Chronic kidney disease (CKD) Suicide Anesthesia complication Bleeding disorder Lung disease Hypertension Stroke Social History Smoking and tobacco/nicotine status: former use of tobacco/nicotine Quit status (tobacco/nicotine): has quit using Year quit tobacco: 2018 - 0.5 PPD x 15 Years Alcohol intake: current Alcohol intake frequency: 0-2 Drinks per Day Alcohol type: hard liquor Substance/Drug Use: never Lives independently: Yes Household members: spouse Marital status: service: No Current occupational status: retired Do you think of yourself as: Straight/Heterosexual Current gender identity: Male Data Anesthesia Cardiac Studies: Echocardiogram 05/04/21 Sestamibi Stress Test (Cardiology) 05/04/21
--- NOTE | 2023-01-07 06:58 | ANES.PROC ---
Anesthesia Procedures Procedure/Date: 01/07/23 Nerve Block ^: Nerve Block 1: Main Anesthesia: general anesthesia Time Out Performed: Yes Consent: requested by attending/covering physician, from patient, from other, risks and benefits reviewed and patient agrees to proceed Nerve block location: popliteal (R) Anesthesia monitors applied: pulse oximetry, EKG, BP cuff and oxygen Nerve block position: supine Anesthetic Used: ropivicaine 0.5% (30 ml) and with decadron (4 mg) Ultrasound used to: recognize landmarks Nerve Stimulator Used?: No Interscalene/Femoral BLK: 4 stimuplex 21 g needle used for position and inplane approach, visualize local anesthetic spread and no vascular puncture identified Injection: neg aspiration of heme Patient Tolerated Procedure: well and no complications Complications: none
[2023-01-07] MEDS: BUPivacaine 0.5% INJ 10 mL INJECTION (07:39)
--- NOTE | 2023-01-07 09:50 | ANE.PACU2 ---
Inpatient post-anesthesia follow up: Airway intact: Yes Vital signs: Temperature 98.7 F Pulse Rate 92 Respiratory Rate 16 Blood Pressure 140/92 Pulse Oximetry 98 Oxygen Delivery Me thod Room Air Oxygen Flow Rate 6 Fraction of Inspir ed Oxygen Hydration adequate: Yes Nausea and vomiting: No Pain level: 1 Mental status: Baseline
== END 2023-01-07 09:52 | disposition home or self-care (01) ==
PROVIDERS: PCP Nurse Practitioner Family; Visit Provider Podiatrist Foot & Ankle Surgery
PROC: (CPT 27829; principal; 2023-01-07 07:00)
DX: S93.432A Sprain of tibiofibular ligament of left ankle, initial encounter (principal); S93.422A Sprain of deltoid ligament of left ankle, initial encounter; X58.XXXA Exposure to other specified factors, initial encounter; E11.22 Type 2 diabetes mellitus with diabetic chronic kidney disease; I12.9 Hypertensive chronic kidney disease with stage 1 through stage 4 chronic kidney disease, or unspecified chronic kidney disease; N18.9 Chronic kidney disease, unspecified; E78.5 Hyperlipidemia, unspecified; E03.9 Hypothyroidism, unspecified; M05.9 Rheumatoid arthritis with rheumatoid factor, unspecified; Z85.46 Personal history of malignant neoplasm of prostate; Z87.891 Personal history of nicotine dependence
CPT/HCPCS: 27829; 36416; 73600; 76000; 82962; C1713; J1100; J2371; J2405; J2704; J2795; J3010; J3490; J7030

== ENCOUNTER 2023-01-14 09:06 | Inpatient (IN) | payer MEDICARE, SELFPAY ==
[2023-01-14] VITALS (25 sets, daily range): BP systolic 80–168; BP diastolic 49–140; PULSE 91–124; RESP 11–24; TEMP 36.4–36.9; O2SAT 93–100; BMI 29.4
--- NOTE | 2023-01-14 09:07 | XR_ITS ---
WS: [id number] Portable AP upright chest, 01/14/2023 Clinical Data: dyspnea/cough Comparison: None. Findings: No nodules, masses or effusions are seen. The heart is normal. The pulmonary vascularity is not increased. No pneumonia or pneumothorax is seen. The aortic arch shows mild calcification. There are bilateral shoulder prostheses. Monitor leads are on the chest wall. Impression: Atherosclerosis.
--- NOTE | 2023-01-14 09:08 | W.ED.SEIZURE ---
HPI - Seizure General: Chief Complaint: Seizure Stated Complaint: seizure like activity Time Seen by Provider: 01/14/23 09:07 PFSH ED PFSH: Medical History (Updated 01/20/23 @ 07:10 by Rashaad Moreland DO) Allergic rhinosinusitis Asthma Atypical chest pain Calcium pyrophosphate deposition disease (CPPD) Carotid artery disease Cellulitis CKD (chronic kidney disease) Colon polyps Contusion of left foot, initial encounter Degenerative arthritis Fall risk care plan declined Gout HTN (hypertension) Hyperlipidemia Hypersomnia Hyperuricemia Hypothyroidism Inflammatory arthritis Left foot pain Leukocytosis Neutrophilic leukocytosis Primary osteoarthritis of right hip Prostate cancer Pulmonary nodule seen on imaging study Recurrent syncope Risk for falls Seronegative rheumatoid arthritis of both hands Shortness of Breath Sprain of right shoulder Tendinopathy of right rotator cuff Type 2 diabetes mellitus Surgical History (Updated 01/14/23 @ 15:01 by Jesse Silva MD) H/O hand surgery H/O prostatectomy (2016) Radical prostatectomy for prostate cancer History of left knee replacement History of left shoulder replacement History of right shoulder replacement (07/15/21) Right reverse total shoulder Hx of cataract surgery Hx of shoulder surgery (08/21/21) Closed reduction of right glenohumeral joint for dislocated right reverse total shoulder S/P total right hip arthroplasty Date of procedure: September 23, 2022 Diagnosis: 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 A size 6 Accolade II 127? neck angle hip stem with a size 28 mm x -2.7 mm Biolox delta ceramic femoral head and a restorationist MDM X3 insert size 42E Family History Father Heart disease CAD (coronary artery disease), Onset Age: 80 Other Cancer Denies family history of Diabetes Clotting disorder Dementia Hyperlipidemia Psychiatric illness Chronic kidney disease (CKD) Suicide Anesthesia complication Bleeding disorder Lung disease Hypertension Stroke Social History Smoking and tobacco/nicotine status: former use of tobacco/nicotine Quit status (tobacco/nicotine): has quit using Year quit tobacco: 2018 - 0.5 PPD x 15 Years Alcohol intake: current Alcohol intake frequency: 0-2 Drinks per Day Alcohol type: hard liquor Substance/Drug Use: never Lives independently: Yes Household members: spouse Marital status: service: No Current occupational status: retired Do you think of yourself as: Straight/Heterosexual Current gender identity: Male Course Vital Signs: Vital signs: Vital Signs Temperature 98.3 F 01/20/23 03:52 Pulse Rate 99 01/20/23 03:52 Respiratory Rate 17 01/20/23 03:52 Blood Pressure 101/61 01/20/23 03:52 Pulse Oximetry 94 01/20/23 03:52 Oxygen Delivery Me thod Room Air 01/20/23 03:52 Oxygen Flow Rate 2 01/14/23 09:09 MDM - Seizure MDM Narrative Medical decision making narrative: Sepsis on reason Tatian was tachycardia hypotension family reports seizure-like activity. Suspect it was vasovagal from hypotension and his sepsis he has not had any urinary output yet. Fluid bolus been given and he is started on Levophed treated with meropenem and vancomycin. Discussed with hospitalist orders written Medical Records Attestation: I reviewed the patient's medical records. Lab Data Attestation: I reviewed the patient's lab results. 01/20/23 05:00 01/20/23 05:00 Labs: Radiology Impressions Chest CT 01/14/23 11:18 IMPRESSION: 1. Stable COPD . 2. Stable moderate calcified coronary artery disease. 3. Stable 3 mm right upper lobe pulmonary nodule. Axial series 4, image 39. No followup needed. Chest X-Ray 01/16/23 13:16 IMPRESSION: No acute disease. Laboratory Results WBC 9.15 10^3/uL (3.29-11.43) 01/14/23 10:06 RBC 4.93 10^6/uL (3.85-5.65) 01/14/23 10:06 Hgb 14.10 g/dL (11.27-16.99) 01/14/23 10:06 Hct 44.1 % (37-53) 01/14/23 10:06 MCV 89.5 fl (82-101) 01/14/23 10:06 MCH 28.6 pg (27-33) 01/14/23 10:06 MCHC 32.0 g/dL (30-55) 01/14/23 10:06 RDW 15.6 % (12.1-15.1) H 01/14/23 10:06 Plt Count 337 10^3/cmm (157-399) 01/14/23 10:06 MPV 11.1 fL (7.4-10.4) H 01/14/23 10:06 Neut % (Auto) 73.8 % 01/14/23 10:06 Lymph % (Auto) 15.1 % 01/14/23 10:06 [place] % (Auto) 9.2 % 01/14/23 10:06 Eos % (Auto) 0.5 % 01/14/23 10:06 Baso % (Auto) 0.7 % 01/14/23 10:06 Neut # (Auto) 6.76 10^3/uL (1.8-7.7) 01/14/23 10:06 Lymph # (Auto) 1.4 10^3/uL (0.8-4.8) 01/14/23 10:06 [place] # (Auto) 0.8 10^3/uL (0.2-0.9) 01/14/23 10:06 Eos # (Auto) 0.1 10^3/uL (0.0-0.8) 01/14/23 10:06 Baso # (Auto) 0.1 10^3/uL (0.0-0.1) 01/14/23 10:06 Nucleated RBC % (auto) 0 % 01/14/23 10:06 Nucleated RBCs # 0.0 /100WBC 01/14/23 10:06 Specimen Type Arterial 01/14/23 09:58 Sample Site Radial, right 01/14/23 09:58 ABG pH 7.37 (7.35-7.45) 01/14/23 09:58 ABG pCO2 17.5 mmHg (35-45) L* 01/14/23 09:58 ABG pO2 108.0 mmHg (80.0-100.0) H 01/14/23 09:58 ABG PO2/FiO2 Ratio 0 01/14/23 09:58 ABG HCO3 10.1 mmol/L (22-26) L 01/14/23 09:58 ABG O2 Saturation 97.8 01/14/23 09:58 ABG Base Excess -12.5 mmol/L (-2.0-2.0) L 01/14/23 09:58 Jesse Test Pos 01/14/23 09:58 A-a O2 Gradient 8.8 mmHg (5-10) 01/14/23 09:58 Hematocrit 44.1 % (42-52) 01/14/23 09:58 Hgb O2 Saturation 96.1 % (95-100) 01/14/23 09:58 Carboxyhemoglobin 0.9 %THgb (0.4-20.1) 01/14/23 09:58 Methemoglobin 0.9 % (0.4-1.5) 01/14/23 09:58 Total Hemoglobin 14.4 g/dL (14-18) 01/14/23 09:58 Sodium 134.0 mmol/L (131-143) 01/14/23 09:58 Potassium 3.8 mmol/L (3.5-5.0) 01/14/23 09:58 Glucose 177.0 mg/dL (70-115) H 01/14/23 09:58 Ionized Calcium 0.9 mmol/L (1.1-1.4) L 01/14/23 09:58 O2 Delivery Device Nc 01/14/23 09:58 O2 Liters/Min 2.0 % 01/14/23 09:58 FiO2 28.0 % 01/14/23 09:58 Commercial Lines Underwriter ID [id number] 01/14/23 09:58 Sodium 137 mmol/L (136-145) 01/14/23 10:06 Potassium 4.3 mmol/L (3.5-5.1) 01/14/23 10:06 Chloride 94 mmol/L (98-107) L 01/14/23 10:06 Carbon Dioxide 12 mmol/L (22-29) L 01/14/23 10:06 Anion Gap 35.3 (5-19) H 01/14/23 10:06 BUN 83 mg/dL (8-23) H* D 01/14/23 10:06 Creatinine 7.6 mg/dL (0.7-1.2) H* 01/14/23 10:06 GFR Calculation Not Reportable 01/14/23 10:06 Glucose 168 mg/dL (65-115) H 01/14/23 10:06 Calculated Osmolality 313 mOsm/kg (285-295) H 01/14/23 10:06 Lactic Acid 7.4 mmol/L (0.5-2.2) H* 01/14/23 10:06 Calcium 7.9 mg/dL (8.5-10.5) L 01/14/23 10:06 Magnesium 1.9 mg/dL (1.7-2.3) 01/14/23 10:06 Total Bilirubin 0.4 mg/dL (0.15-1.2) 01/14/23 10:06 AST 31 U/L (0-40) 01/14/23 10:06 ALT 13 U/L (0-41) 01/14/23 10:06 Alkaline Phosphatase 121 U/L (40-130) 01/14/23 10:06 Creatine Kinase 562 U/L (39-308) H* 01/14/23 10:06 C-Reactive Protein 119.3 mg/L (0.0-4.9) H 01/14/23 10:06 Total Protein 6.1 g/dL (6.6-8.7) L 01/14/23 10:06 Albumin 3.1 g/dL (3.5-5.2) L 01/14/23 10:06 Globulin 3.0 g/dL (1.3-4.6) 01/14/23 10:06 Procalcitonin 2.01 ng/mL (0-0.5) H 01/14/23 10:06 Serum Ketones Negative (Negative) 01/14/23 10:06 All radiology interpretation(s) finalized by discharge Discharge Plan Discharge Patient Disposition: Admitted As Inpatient Admit Provider: Jesse Silva Clinical Impression: Sepsis, Renal failure, Seizure-like activity, Acute kidney injury superimposed on chronic kidney disease Condition: Stable Coding Level of Care Code ED Straw Hat Brim Cutter Operator for Shon Mosquera
[2023-01-14 10:09] LABS: ABG PCO2 17.5 mmHg (35-45); ABG PH Result 7.37 (7.35-7.45); Alveolar-Arterial Oxygen Gradi 8.8 mmHg (5-10); Arterial Blood Gas Hematocrit 44.1 % (42-52); Base Excess ABG -12.5 mmol/L (-2.0-2.0); Blood Gas Allen Test Pos; Blood Gas Operator Identificat GD; Blood Gas Sample Site Radial, right; Blood Gas Sample Type Arterial; Carboxyhemoglobin 0.9 %THgb (0.4-20.1); HCO3 ABG 10.1 mmol/L (22-26); HGB O2 Sat 96.1 % (95-100); Ionized Calcium Level - ABG 0.9 mmol/L (1.1-1.4); Methemoglobin 0.9 % (0.4-1.5); Oxygen Device NC; Oxygen Saturation ABG 97.8; PO2 FiO2 Ratio Arterial Blood 0; Potassium Level - ABG 3.8 mmol/L (3.5-5.0); Total Hemoglobin 14.4 g/dL (14-18)
[2023-01-14 10:15] LABS: Basophils # 0.1 10^3/uL (0.0-0.1); Basophils % 0.7 %; Eosinophils # 0.1 10^3/uL (0.0-0.8); Eosinophils % 0.5 %; Hematocrit 44.1 % (37-53); Lymphocytes # 1.4 10^3/uL (0.8-4.8); Lymphocytes % 15.1 %; Mean Corpuscular Hemoglobin 28.6 pg (27-33); Mean Corpuscular Volume 89.5 fl (82-101); Mean Platelet Volume 11.1 fL (7.4-10.4); Monocytes # 0.8 10^3/uL (0.2-0.9); Monocytes % 9.2 %; Neutrophils # 6.76 10^3/uL (1.8-7.7); Neutrophils % 73.8 %; Nucleated Red Blood Cells % 0 %; Platelet Count 337 10^3/cmm (157-399); Red Blood Count 4.93 10^6/uL (3.85-5.65); Red Cell Distribution Width 15.6 % (12.1-15.1); White Blood Count 9.15 10^3/uL (3.29-11.43)
[2023-01-14] MEDS: sodium chloride 0.9% 1,000 ML 999 ML IV ×2 (10:33→12:25)
[2023-01-14 10:36] LABS: Alanine Aminotransferase 13 U/L (0-41); Albumin Level 3.1 g/dL (3.5-5.2); Alkaline Phosphatase 121 U/L (40-130); Anion Gap 35.3 (5-19); Aspartate Amino Transferase 31 U/L (0-40); Calcium 7.9 mg/dL (8.5-10.5); Carbon Dioxide 12 mmol/L (22-29); Chloride 94 mmol/L (98-107); Glucose 168 mg/dL (65-115); Magnesium 1.9 mg/dL (1.7-2.3); Osmolality Calculated 313 mOsm/kg (285-295); Potassium 4.3 mmol/L (3.5-5.1); Sodium 137 mmol/L (136-145); Total Bilirubin 0.4 mg/dL (0.15-1.2); Total Protein 6.1 g/dL (6.6-8.7)
[2023-01-14 10:40] LABS: Blood Urea Nitrogen 83 mg/dL (8-23); Creatine Phosphokinase 562 U/L (39-308); Lactic Sepsis W/Reflex 7.4 mmol/L (0.5-2.2)
[2023-01-14 11:06] LABS: Ketone (Acetest) Serum Negative (Negative)
--- NOTE | 2023-01-14 11:08 | CT_ITS ---
WS: [id number] CT HEAD NONCONTRAST HISTORY: new onset seizures TECHNIQUE: Contiguous axial imaging performed through the brain in 2.5 mm imaging. Bone and soft tiss ue windows. Sagittal and coronal reformats reviewed. All CT scans at [facility] use at least one of these dose optimization techniques: automated exposure control; mA and/or kV adjustment per pa tient size (includes targeted exams where dose is matched to clinical indication); or iterative recon struction. DLP: 1176.38 mGy.cm COMPARISON: 06/01/2012 No acute intracranial hemorrhage, midline shift or mass effect. Moderate to severe bilateral cerebral and cerebellar atrophy. Significant progression since 2012. Mil d small vessel ischemic change. No infarcts. Ventricles: Ventricles and extra-axial spaces are prominent on the basis of central and peripheral at rophy. No inferior displacement of the cerebellar tonsils. Paranasal sinuses: As visualized are clear. Mastoid air cells: Well pneumatized. Calvarium and scalp: Skull is intact with no soft tissue edema or swelling. IMPRESSION: 1. No acute intracranial hemorrhage or edema. 2. Moderate to severe cerebral and cerebellar atrophy with significant progression since 06/01/2012. 3. Mild ventriculomegaly on the basis of atrophy.
--- NOTE | 2023-01-14 11:10 | CT_ITS ---
WS: [id number] CT ABDOMEN AND PELVIS NONCONTRAST HISTORY: Acute renal failure, abdominal pain TECHNIQUE: Imaging performed through the abdomen and pelvis. Coronal and sagittal reformats are submi tted. All CT scans at [facility] use at least one of these dose optimization techniques: auto mated exposure control; mA and/or kV adjustment per patient size (includes targeted exams where dose is matched to clinical indication); or iterative reconstruction. DLP: 722.34 mGy.cm COMPARISON: None available. Lower thorax: Hyperexpanded lungs. No pneumonia. Normal size heart. Mild atherosclerosis in the coron willie arteries. Small hiatal hernia. Liver: Normal size liver. No mass or bile duct dilatation. Gallbladder: Normal gallbladder. No pericholecystic fluid or cholelithiasis. No gallbladder wall thic kening. Pancreas: Normal size and attenuation. Normal pancreatic duct. No pancreatitis or mass. Spleen: Normal. Adrenal glands: Normal. No mass. Right kidney: 9.0 cm in length. Mild cortical thinning. Exophytic 6 mm low-attenuation mass. No obstr uction. Left kidney: 9.0 cm in length. No obstruction. Complex fat-containing cortical thickening from the po sterior LEFT kidney. This area measures 22 x 12 mm. Cannot be further described without IV contrast. Aorta: Mild atherosclerosis abdominal aorta with no aneurysm. No free fluid, intraperitoneal air or significant lymphadenopathy. GI tract: Stomach is moderately well distended with fluid. No small bowel obstruction. Normal appendi x. There are a few scattered diverticula in the distal colon. No evidence for acute diverticulitis. Abdominal wall: Negative. No hernia. Pelvis: No free fluid. Osseous structures: Prior RIGHT total hip arthroplasty. Degenerative lumbar spine disc and facet dise ase. No fracture. IMPRESSION: 1. No acute abdominal or pelvic abnormalities on this unenhanced exam. 2. No renal obstruction. Focal area of perinephric stranding lower pole LEFT kidney adjacent to a fa t-containing lesion. This may be a chronic area of scarring. This can be evaluated by ultrasound or p ostcontrast CT as patient's renal failure resolves. 3. Normal appendix. No GI tract obstruction.
--- NOTE | 2023-01-14 11:16 | PM.HP ---
Providers/Chief Complaint Primary Care Provider: TAI Perez Chief Complaint: seizure like activity History of Present Illness Matt Tran is a 77 year old male with a past medical history significant for asthma, CPPD, CAD, CKD, HTN, HLD, T2DM, RA, and prostate cancer who presents to the emergency department with seizure like activity. Patient is accompanied by his spouse who is supportive and provides much of the history. He has reportedly been sick for the past four days with severe diarrhea. He reports the diarrhea is like water and quickly goes through him. He states he feels dehydrated. Reports he has been on antibiotics recently. Spouse reports he was also having tonic clonic episodes associated with going to the restroom. She reports in retrospect, these episodes may have been related to low blood pressure. In the ED, Flex was found to tachycardic and hypotensive. Labs revealed lactic acidosis, HAGMA, and renal failure. Serum ketones were negative. CT head was negative for acute findings. CT abdomen and pelvis was negative for acute abnormalities. No urinary obstruction was identified. Patient treated with IVF bolus and broad spectrum antibiotics. Review of Systems Narrative: A complete review of systems was obtained and is negative except as stated in HPI. Medications/Allergies Home Medications Medication Instructions Recorded Confirmed Last Taken Type duloxetine 30 mg capsule,delayed 30 mg PO DAILY 07/12/19 01/14/23 01/13/23 History release sprinkle levothyroxine 50 mcg capsule 50 mcg PO DAILY 07/12/19 01/14/23 01/13/23 History pravastatin 80 mg tablet 80 mg PO QPM 07/12/19 01/14/23 01/12/23 History sodium bicarbonate 650 mg tablet 650 mg PO TID 07/12/19 01/14/23 01/13/23 History ropinirole 0.5 mg tablet 0.5 mg PO DAILY 06/17/21 01/14/23 01/13/23 History lisinopril 10 mg tablet 10 mg PO BID 12/30/21 01/14/23 01/13/23 History tramadol 50 mg tablet See Rx Instructions PO BID 07/05/22 01/14/23 01/13/23 History omeprazole 20 mg tablet,delayed 20 mg PO DAILY #90 tabs 08/31/22 01/14/23 01/13/23 Rx release allopurinol 100 mg tablet 200 mg PO DAILY #180 tabs 12/06/22 01/14/23 01/13/23 Rx leflunomide 20 mg tablet 20 mg PO DAILY #90 tabs 12/06/22 01/14/23 01/13/23 Rx prednisone 10 mg tablet 10 mg PO DAILY PRN joint pain #90 12/06/22 01/14/23 01/13/23 Rx tabs sulfasalazine 500 mg tablet 0.5 g PO BID #60 tabs 12/06/22 01/14/23 01/12/23 Rx AFO #2 ea 12/29/22 01/14/23 Unknown Rx bedside comode #1 ea 12/29/22 01/14/23 Unknown Rx wheel chair #1 ea 12/29/22 01/14/23 Unknown Rx aspirin 81 mg tablet,delayed 81 mg PO DAILY 01/14/23 01/14/23 01/13/23 History release clarithromycin 500 mg tablet 500 mg PO BID 01/14/23 01/14/23 01/13/23 History hydrocodone 5 mg-acetaminophen 325 1 tab PO QID PRN Pain 01/14/23 01/14/23 Unknown History mg tablet metronidazole 500 mg tablet 500 mg PO TID 01/14/23 01/14/23 01/13/23 History montelukast 10 mg tablet 10 mg PO DAILY 01/14/23 01/14/23 Unknown History Allergies Allergy/AdvReac Type Severity Reaction Status Date / Time Penicillins Allergy Severe ALGY-Hives Verified 01/14/23 09:19 shellfish derived Allergy Severe ALGY-Hives Verified 01/14/23 09:19 esomeprazole [From Nexium] Allergy Intermediate ALGY-Hives Verified 01/14/23 09:19 empagliflozin Allergy Unknown Verified 01/14/23 09:19 [From Jardiance] Neoprene Allergy Severe ALGY-Hives Uncoded 01/14/23 09:19 PFSH Acute PFSH: Medical History (Updated 01/14/23 @ 15:25 by eJsse Silva MD) Allergic rhinosinusitis Asthma Atypical chest pain Calcium pyrophosphate deposition disease (CPPD) Carotid artery disease Cellulitis CKD (chronic kidney disease) Colon polyps Contusion of left foot, initial encounter Degenerative arthritis Fall risk care plan declined Gout HTN (hypertension) Hyperlipidemia Hypersomnia Hyperuricemia Hypothyroidism Inflammatory arthritis Left foot pain Leukocytosis Neutrophilic leukocytosis Primary osteoarthritis of right hip Prostate cancer Pulmonary nodule seen on imaging study Recurrent syncope Risk for falls Seronegative rheumatoid arthritis of both hands Shortness of Breath Sprain of right shoulder Tendinopathy of right rotator cuff Type 2 diabetes mellitus Surgical History (Updated 01/14/23 @ 15:01 by Jesse Silva MD) H/O hand surgery H/O prostatectomy (2017) Radical prostatectomy for prostate cancer History of left knee replacement History of left shoulder replacement History of right shoulder replacement (07/15/21) Right reverse total shoulder Hx of cataract surgery Hx of shoulder surgery (08/21/21) Closed reduction of right glenohumeral joint for dislocated right reverse total shoulder S/P total right hip arthroplasty Date of procedure: September 23, 2022 Diagnosis: 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 A size 6 Accolade II 127? neck angle hip stem with a size 28 mm x -2.7 mm Biolox delta ceramic femoral head and a zoroastrianism MDM X3 insert size 42E Family History Father Heart disease CAD (coronary artery disease), Onset Age: 80 Other Cancer Denies family history of Diabetes Clotting disorder Dementia Hyperlipidemia Psychiatric illness Chronic kidney disease (CKD) Suicide Anesthesia complication Bleeding disorder Lung disease Hypertension Stroke Social History Smoking and tobacco/nicotine status: former use of tobacco/nicotine Quit status (tobacco/nicotine): has quit using Year quit tobacco: 2018 - 0.5 PPD x 15 Years Alcohol intake: current Alcohol intake frequency: 0-2 Drinks per Day Alcohol type: hard liquor Substance/Drug Use: never Lives independently: Yes Household members: spouse Marital status: service: No Current occupational status: retired Do you think of yourself as: Straight/Heterosexual Current gender identity: Male Vitals/I&O/Wt Last Vital Signs Temp 98.4 F 01/14/23 09:09 Pulse 91 01/14/23 09:09 Resp 18 01/14/23 09:09 BP 80/49 01/14/23 09:09 Pulse Ox 95 01/14/23 09:09 O2 Del Method Nasal Cannula 01/14/23 09:09 O2 Flow Rate 2 01/14/23 09:09 Weight last 48 hrs Weight 85.275 kg Physical Exam Narrative: General: Patient is awake. Ill appearing. Head: Normocephalic. Hard of hearing. Dry mucous membranes. Neck: No JVD. Cardiovascular: Tachycardic with soft blood pressure. No gallops. No murmurs. Delayed capillary refill. Lungs: Tachypnea. Breath sounds are diminished in bilateral bases, no use of accessory muscles, no crackles or wheezes. On nasal canula support. Skin: No jaundice. Upper and lower extremities with mottling. Abdomen: Normal bowel sounds, abdomen soft and nontender. Extremities: No clubbing. LLE in cast. Musculoskeletal: No erythematous joints. Neurological: Moves all 4 extremities. No myoclonus. Data 01/14/23 10:06 01/14/23 10:06 Micro: Microbiology 01/14/23 10:55 Blood Culture - Preliminary Blood SPECIMEN COLLECTED 01/14/23 10:06 Blood Culture - Preliminary Blood SPECIMEN COLLECTED A&P Assessment and plan (1) Sepsis: Severe sepsis, borderline septic shock Mottling skin a/w high risk of morbidity and mortality in sepsis SIRS: Tachypnea, Tachycardic qSOFA: Hypotensive, Tachypnea End-organ damage: Renal failure Source: Broad ddx, UA pending, possibly GI given symptoms, possibly surgical site Trend lactate IVF bolus for 30 mL/kg bw Hold home leflunomide and sulfasalazine Start broad spectrum abx Vancomycin for MRSA coverage Check for MRSA w/ swab Blood cultures x2 to eval for bacteremia Urinalysis to evaluate for UTI Check C diff and shiga toxin given recent abx use Imaging reviewed, chest CT still pending Podiatry consult to evaluate left lower extremity MAP goal of 65 mmHg, low threshold for Levophed support Low threshold for stress dose steroids (2) Renal failure: LUCILLE on CKD, baseline Cr ~1.8-2.1 HAGMA noted, ketones are negative so no ketoacidosis Start bicarb drip w/ 150meq bicarb per liter Avoid nephrotoxins Hold PPI Reduce tramadol dose to avoid toxicity and also avoid withdrawal Renally dose medications Monitor for development of fluid overload while on IV fluids, echo from 04/2021 shows preserved LVEF of 60% with diastolic dysfunction present (3) Seizure-like activity: Per history, associated with toileting Suspect convulsive syncope rather than seizures Clonic jerking from uremia is also within the differential Head CT reviewed Seizure precautions Treat underlying sepsis (4) Dislocation, ankle: Podiatry consult Qualifiers: Encounter type: initial encounter Laterality: left Qualified Code(s): S93.05XA - Dislocation of left ankle joint, initial encounter (5) Carotid artery disease: Continue home aspirin Continue home statin Qualifiers: Carotid artery disease type: stenosis Laterality: left Qualified Code(s): I65.22 - Occlusion and stenosis of left carotid artery (6) Gout: Hold allopurinol d/t renal failure (7) HTN (hypertension): Hold antihypertensives due to sepsis Qualifiers: Hypertension type: primary hypertension Qualified Code(s): I10 - Essential (primary) hypertension (8) Inflammatory arthritis: Hold home meds due to infection/sepsis (9) Hypothyroidism: Continue Synthroid Qualifiers: Hypothyroidism type: other Qualified Code(s): E03.8 - Other specified hypothyroidism (10) Type 2 diabetes mellitus: Appears to be diet controlled, but will need to confirm Will use insulin as needed Avoid hypoglycemia Qualifiers: Diabetes mellitus assisted insulin use: without buttermaker use Diabetes mellitus complication status: with hyperglycemia Qualified Code(s): E11.65 - Type 2 diabetes mellitus with hyperglycemia Plan DVT ppx: Heparin Code: Full Attestations Medical Necessity Statement*: Patient presents with severe sepsis with renal failure with expected hospitalization to cross two midnights for IV fluids, IV antibiotics, correction of renal failure, and supportive care. Critical Care Time: The high probability of a clinically significant, sudden or life threatening deterioration of the patient's renal, hemodynamic system(s) required my full and direct attention, intervention and personal management. The critical care time is as shown. This time is in addition to time spent performing any reported procedures but includes the following: [x] Data and vital sign review and interpretation [x] Patient assessment, examination and intervention [x] Documentation [x] Medication orders and management Critical Care Time (min): 75 Coding Level of Care Code Acute Code for [facility] Fwd Diagnoses Sepsis A41.9 Renal failure N19 Seizure-like activity R56.9 Dislocation, ankle S93.05XA Encounter type: initial encounter Laterality: left Carotid artery disease I65.22 Carotid artery disease type: stenosis Laterality: left Gout M10.9 HTN (hypertension) I10 Hypertension type: primary hypertension Inflammatory arthritis M19.90 Hypothyroidism E03.8 Hypothyroidism type: other Type 2 diabetes mellitus E11.65 Diabetes mellitus assisted insulin use: without assisted use Diabetes mellitus complication status: with hyperglycemia
--- NOTE | 2023-01-14 11:18 | CTR_ITS ---
PROCEDURE INFORMATION: Exam: CT Chest Without Contrast; Diagnostic Exam date and time: 01/14/2023 9:13 PM Age: 77 years old Clinical indication: Prior surgery; Surgery date: 6+ months; Surgery type: Bilateral shoulder; Patient HX: Sepsis with lactic acid of 7.4 and pc02 of 17.5. History of prostate cancer. ; Additional info: Septic TECHNIQUE: Imaging protocol: Diagnostic computed tomography of the chest without contrast. Radiation optimization: All CT scans at this facility use at least one of these dose optimization techniques: automated exposure control; mA and/or kV adjustment per patient size (includes targeted exams where dose is matched to clinical indication); or iterative reconstruction. REPORTING DATA: Count of CT and Cardiac NM exams in prior 12 months: This patient has received 0 known CTs and 0 known cardiac nuclear medicine studies in the 12 months prior to the current study. COMPARISON: CT chest wo con [id number] 09/25/2021 7:09 AM RADIATION DOSE METRICS: Total DLP (mGy-cm): 1266.44 FINDINGS: Lungs: Stable COPD . Stable 3 mm right upper lobe pulmonary nodule. Axial series 4, image 39. No followup needed. Pleural spaces: Unremarkable. No pneumothorax. No pleural effusion. Heart: Unremarkable. No cardiomegaly. No pericardial effusion. Coronary arteries: Stable moderate calcified coronary artery disease. Lymph nodes: Calcified left hilar nodes and/or mediastinal nodes and/or lung granulomas consistent with old granulomatous disease. Stable left calcified hilar nodes and/or mediastinal nodes and/or lung nodules consistent with old granulomatous disease. Vasculature: Calcification of the thoracic aorta and/or great vessels consistent with atherosclerotic vessel disease. Calcification of the abdominal aorta and/or iliac arteries consistent with atherosclerotic vessel disease. Gallbladder and bile ducts: Contracted gallbladder. Bones/joints: Stable total left shoulder replacement with metallic artifact. Stable total right shoulder replacement with metallic artifact. Moderate thoracic spondylosis. Soft tissues: Unremarkable. CT/CT chest wo con [id number] IMPRESSION: 1. Stable COPD . 2. Stable moderate calcified coronary artery disease. 3. Stable 3 mm right upper lobe pulmonary nodule. Axial series 4, image 39. No followup needed.
[2023-01-14] MEDS: meropenem 1,000 MG in sodium chloride 0.9% (plus) 50 ML 100 MG IV (11:33)
[2023-01-14 11:58] LABS: Reflex Lactate Order REFLEX LACTIC ORDERD
[2023-01-14] MEDS: vancomycin 1,000 MG in sodium chloride 0.9% 250 ML 250 MG IV (12:25)
[2023-01-14 13:34] LABS: Lactic Acid level (Lactate) 2.5 mmol/L (0.5-2.2)
[2023-01-14 13:40] LABS: C Reactive Protein 119.3 mg/L (0.0-4.9)
[2023-01-14 13:47] LABS: Procalcitonin 2.01 ng/mL (0-0.5)
--- NOTE | 2023-01-14 15:18 | P.CONIM_ITS ---
Providers/Reason For Consult Consulting Physician/Specialty*: Sai Diane D.P.M./podiatry Reason for Consult*: Postop care left ankle Attending Physician: Jesse Silva MD Primary Care Provider: TAI Perez History of Present Illness History of Present Illness Matt Tran is a 77 year old male Medications/Allergies Home Medications Medication Instructions Recorded Confirmed Last Taken Type duloxetine 30 mg capsule,delayed 30 mg PO DAILY 07/12/19 01/14/23 01/13/23 History release sprinkle levothyroxine 50 mcg capsule 50 mcg PO DAILY 07/12/19 01/14/23 01/13/23 History pravastatin 80 mg tablet 80 mg PO QPM 07/12/19 01/14/23 01/12/23 History sodium bicarbonate 650 mg tablet 650 mg PO TID 07/12/19 01/14/23 01/13/23 History ropinirole 0.5 mg tablet 0.5 mg PO DAILY 06/17/21 01/14/23 01/13/23 History lisinopril 10 mg tablet 10 mg PO BID 12/30/21 01/14/23 01/13/23 History tramadol 50 mg tablet See Rx Instructions PO BID 07/05/22 01/14/23 01/13/23 History omeprazole 20 mg tablet,delayed 20 mg PO DAILY #90 tabs 08/31/22 01/14/23 01/13/23 Rx release allopurinol 100 mg tablet 200 mg PO DAILY #180 tabs 12/06/22 01/14/23 01/13/23 Rx leflunomide 20 mg tablet 20 mg PO DAILY #90 tabs 12/06/22 01/14/23 01/13/23 Rx prednisone 10 mg tablet 10 mg PO DAILY PRN joint pain #90 12/06/22 01/14/23 01/13/23 Rx tabs sulfasalazine 500 mg tablet 0.5 g PO BID #60 tabs 12/06/22 01/14/23 01/12/23 Rx AFO #2 ea 12/29/22 01/14/23 Unknown Rx bedside comode #1 ea 12/29/22 01/14/23 Unknown Rx wheel chair #1 ea 12/29/22 01/14/23 Unknown Rx aspirin 81 mg tablet,delayed 81 mg PO DAILY 11/12/2701/14/23 01/13/23 History release clarithromycin 500 mg tablet 500 mg PO BID 01/14/23 01/14/23 01/13/23 History hydrocodone 5 mg-acetaminophen 325 1 tab PO QID PRN Pain 01/14/23 01/14/23 Unknown History mg tablet metronidazole 500 mg tablet 500 mg PO TID 01/14/23 01/14/23 01/13/23 History montelukast 10 mg tablet 10 mg PO DAILY 01/14/23 01/14/23 Unknown History Allergies Allergy/AdvReac Type Severity Reaction Status Date / Time Penicillins Allergy Severe ALGY-Hives Verified 01/14/23 09:19 shellfish derived Allergy Severe ALGY-Hives Verified 01/14/23 09:19 esomeprazole [From Nexium] Allergy Intermediate ALGY-Hives Verified 01/14/23 09:19 empagliflozin Allergy Unknown Verified 01/14/23 09:19 [From Jardiance] Neoprene Allergy Severe ALGY-Hives Uncoded 01/14/23 09:19 PFSH Acute PFSH: Medical History (Updated 01/14/23 @ 15:20 by Jesse Silva MD) Allergic rhinosinusitis Asthma Atypical chest pain Calcium pyrophosphate deposition disease (CPPD) Carotid artery disease Cellulitis CKD (chronic kidney disease) Colon polyps Contusion of left foot, initial encounter Degenerative arthritis Fall risk care plan declined Gout HTN (hypertension) Hyperlipidemia Hypersomnia Hyperuricemia Hypothyroidism Inflammatory arthritis Leukocytosis Neutrophilic leukocytosis Prostate cancer Pulmonary nodule seen on imaging study Recurrent syncope Risk for falls Seronegative rheumatoid arthritis of both hands Shortness of Breath Sprain of right shoulder Tendinopathy of right rotator cuff Type 2 diabetes mellitus Surgical History (Updated 01/14/23 @ 15:01 by Jesse Silva MD) H/O hand surgery H/O prostatectomy (2017) Radical prostatectomy for prostate cancer History of left knee replacement History of left shoulder replacement History of right shoulder replacement (07/15/21) Right reverse total shoulder Hx of cataract surgery Hx of shoulder surgery (08/21/21) Closed reduction of right glenohumeral joint for dislocated right reverse total shoulder S/P total right hip arthroplasty Date of procedure: September 23, 2022 Diagnosis: 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 A size 6 Accolade II 127? neck angle hip stem with a size 28 mm x -2.7 mm Biolox delta ceramic femoral head and a yazidism MDM X3 insert size 42E Family History Father Heart disease CAD (coronary artery disease), Onset Age: 80 Other Cancer Denies family history of Diabetes Clotting disorder Dementia Hyperlipidemia Psychiatric illness Chronic kidney disease (CKD) Suicide Anesthesia complication Bleeding disorder Lung disease Hypertension Stroke Social History Smoking and tobacco/nicotine status: former use of tobacco/nicotine Quit status (tobacco/nicotine): has quit using Year quit tobacco: 2018 - 0.5 PPD x 15 Years Alcohol intake: current Alcohol intake frequency: 0-2 Drinks per Day Alcohol type: hard liquor Substance/Drug Use: never Lives independently: Yes Household members: spouse Marital status: service: No Current occupational status: retired Do you think of yourself as: Straight/Heterosexual Current gender identity: Male Vitals/I&O/Wt Last Vital Signs Temp 97.6 F 01/14/23 13:11 Pulse 124 H 01/14/23 13:11 Resp 16 01/14/23 13:11 BP 110/86 01/14/23 13:11 Pulse Ox 100 01/14/23 13:11 O2 Del Method Room Air 01/14/23 13:11 O2 Flow Rate 2 01/14/23 09:09 01/14/23 01/14/23 01/14/23 06:59 14:59 22:59 Intake Total 2300 / 2300 Balance 2300 / 2300 Weight last 48 hrs Weight 188 lb Physical Exam Narrative: GENERAL: Patient is alert and oriented ?3 and in no acute distress. The following is a focused left lower extremity exam. VASCULAR: Dorsalis pedis palpable. Posterior tibial artery palpable. Capillary refill time less than 5 seconds to the distal hallux bilaterally. Calf is supple and nontender proximally and distally. No lower extremity edema. NEUROLOGICAL: Protective sensation Intact to light touch. DERMATOLOGICAL: Incision at left lateral ankle is well coapted, mark intact, no Carlyn-incision erythema, warmth or drainage. Ecchymosis at the left foot and ankle, no fracture blisters or lacerations or abrasions. MUSCULOSKELETAL: Able to wiggle toes on command. No pain with left posterior calf squeeze. 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 Podiatry consulted for evaluation of left lower extremity. He is status post ORIF left ankle fracture dislocation with syndesmotic disruption, date of operation 12/29/2022. Cast and surgical dressing removed in ICU, incision site inspected, incision is well-healing without signs of infection. See image in physical exam. New sterile dressing applied to the left lower extremity and new well-padded short leg cast applied to the left lower extremity. -Nonweightbearing to the left lower extremity at this time -Plan for cast to stay on for another 2 weeks, will follow-up in podiatry clinic outpatient -Elevate left foot while resting. Podiatry is available for any further lower extremity needs during this hospitalization otherwise will sign off and see outpatient. Coding Level of Care Code Acute Code for Chg Fwd Diagnoses Type 2 diabetes mellitus E11.65 Diabetes mellitus laborer marine terminal insulin use: without laborer marine terminal use Diabetes mellitus complication status: with hyperglycemia
[2023-01-14] MEDS: sodium chloride 0.9% 500 ML 999 ML IV (15:51)
[2023-01-14] MEDS: sodium bicarbonate 150 MEQ in dextrose 5% 1,000 ML 100 MEQ IV (15:52)
[2023-01-14] MEDS: sodium chloride 0.9% 1,000 ML 150 ML IV (15:55)
[2023-01-14 16:21] LABS: Add Urine Microscopic? YES; Bilirubin Urine 1+ (Negative); Blood Urine 3+ (Negative); Glucose Urine UA Norm (Normal); Ketones Urine 1+ (Negative); Leukocyte Esterase Urine Trace (Negative); Nitrate Urine Negative (Negative); Protein Urine 2+ (Negative); Specific Gravity, Urine 1.025 (1.005-1.030); Urine Appearance Cloudy (CLEAR); Urine Color Yellow (Yellow); Urobilinogen Urine Norm (Negative); pH Urine 5 (5-7)
[2023-01-14 16:22] LABS: Add Urine Culture? No; Bacteria Urine 2+ /hpf; RBC Urine 15-25 /hpf (0-2); Squamous Epithelial Cell Urine 25-40 /hpf (0-5); WBC Urine 0-4 /hpf (0-5)
[2023-01-14] MEDS: atorvastatin 40 mg Tablet 20 MG PO (18:05)
--- NOTE | 2023-01-14 19:35 | PM.CONSULT ---
Providers/Reason For Consult Consulting Physician/Specialty*: [facility]/Nephrology Reason for Consult*: Acute on CKD Attending Physician: Jesse Silva MD Primary Care Provider: TAI Perez History of Present Illness History of Present Illness Matt Tran is a 77 year old male Patient is a 77-year-old male with past medical history of coronary artery disease, chronic kidney disease with a creatinine baseline around 2, followed by Dr. Orlando from [place], dyslipidemia, diabetes, rheumatoid arthritis, history of prostate cancer, history of COPD presented to the emergency department due to chills and seizure-like activity. Patient's family reported that patient had severe diarrhea going on for few days. Patient was not able to tolerate p.o. Patient was noted to be hypotensive and tachycardic was briefly on pressors. Currently admitted to ICU. Lab data was significant for severe acute kidney injury with creatinine of 7.6 and bicarbonate level of 12. Potassium is 4.3. He is currently receiving bicarbonate drip. Patient was also seen by podiatry for further evaluation of left lower extremity. Patient underwent ORIF of left ankle fracture recently on 12/29/2022. Review of Systems Narrative: unable to obtain from pt Medications/Allergies Home Medications Medication Instructions Recorded Confirmed Last Taken Type duloxetine 30 mg capsule,delayed 30 mg PO DAILY 07/12/19 01/14/23 01/13/23 History release sprinkle levothyroxine 50 mcg capsule 50 mcg PO DAILY 07/12/19 01/14/23 01/13/23 History pravastatin 80 mg tablet 80 mg PO QPM 07/12/19 01/14/23 01/12/23 History sodium bicarbonate 650 mg tablet 650 mg PO TID 07/12/19 01/14/23 01/13/23 History ropinirole 0.5 mg tablet 0.5 mg PO DAILY 06/17/21 01/14/23 01/13/23 History lisinopril 10 mg tablet 10 mg PO BID 12/30/21 01/14/23 01/13/23 History tramadol 50 mg tablet See Rx Instructions PO BID 07/05/22 01/14/23 01/13/23 History omeprazole 20 mg tablet,delayed 20 mg PO DAILY #90 tabs 08/31/22 01/14/23 01/13/23 Rx release allopurinol 100 mg tablet 200 mg PO DAILY #180 tabs 12/06/22 01/14/23 01/13/23 Rx leflunomide 20 mg tablet 20 mg PO DAILY #90 tabs 12/06/22 01/14/23 01/13/23 Rx prednisone 10 mg tablet 10 mg PO DAILY PRN joint pain #90 12/06/22 01/14/23 01/13/23 Rx tabs sulfasalazine 500 mg tablet 0.5 g PO BID #60 tabs 12/06/22 01/14/23 01/12/23 Rx AFO #2 ea 12/29/22 01/14/23 Unknown Rx bedside comode #1 ea 12/29/22 01/14/23 Unknown Rx wheel chair #1 ea 12/29/22 01/14/23 Unknown Rx aspirin 81 mg tablet,delayed 81 mg PO DAILY 01/14/23 01/14/23 01/13/23 History release clarithromycin 500 mg tablet 500 mg PO BID 01/14/23 01/14/23 01/13/23 History hydrocodone 5 mg-acetaminophen 325 1 tab PO QID PRN Pain 01/14/23 01/14/23 Unknown History mg tablet metronidazole 500 mg tablet 500 mg PO TID 01/14/23 01/14/23 01/13/23 History montelukast 10 mg tablet 10 mg PO DAILY 01/14/23 01/14/23 Unknown History Allergies Allergy/AdvReac Type Severity Reaction Status Date / Time Penicillins Allergy Severe ALGY-Hives Verified 01/14/23 09:19 shellfish derived Allergy Severe ALGY-Hives Verified 01/14/23 09:19 esomeprazole [From Nexium] Allergy Intermediate ALGY-Hives Verified 01/14/23 09:19 empagliflozin Allergy Unknown Verified 01/14/23 09:19 [From Jardiance] Neoprene Allergy Severe ALGY-Hives Uncoded 01/14/23 09:19 Current Medications Generic Name Dose Route Start Last Admin Trade Name Freq PRN Reason Stop Dose Admin Atorvastatin Calcium 20 mg 01/14/23 18:00 01/14/23 18:05 Atorvastatin 40 Mg Tablet PO 20 mg QPM MANDO Administration Sodium Bicarbonate 150 meq/ 1,150 mls @ 150 mls/hr 01/14/23 13:30 01/14/23 18:26 Dextrose IV 150 mls/hr .Q7H40M MANDO Infusion PFSH Acute PFSH: Medical History (Updated 01/14/23 @ 15:25 by Jesse Silva MD) Allergic rhinosinusitis Asthma Atypical chest pain Calcium pyrophosphate deposition disease (CPPD) Carotid artery disease Cellulitis CKD (chronic kidney disease) Colon polyps Contusion of left foot, initial encounter Degenerative arthritis Fall risk care plan declined Gout HTN (hypertension) Hyperlipidemia Hypersomnia Hyperuricemia Hypothyroidism Inflammatory arthritis Left foot pain Leukocytosis Neutrophilic leukocytosis Primary osteoarthritis of right hip Prostate cancer Pulmonary nodule seen on imaging study Recurrent syncope Risk for falls Seronegative rheumatoid arthritis of both hands Shortness of Breath Sprain of right shoulder Tendinopathy of right rotator cuff Type 2 diabetes mellitus Surgical History (Updated 01/14/23 @ 15:01 by Jesse Silva MD) H/O hand surgery H/O prostatectomy (2016) Radical prostatectomy for prostate cancer History of left knee replacement History of left shoulder replacement History of right shoulder replacement (07/15/21) Right reverse total shoulder Hx of cataract surgery Hx of shoulder surgery (08/21/21) Closed reduction of right glenohumeral joint for dislocated right reverse total shoulder S/P total right hip arthroplasty Date of procedure: September 23, 2022 Diagnosis: 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 A size 6 Accolade II 127? neck angle hip stem with a size 28 mm x -2.7 mm Biolox delta ceramic femoral head and a methodist MDM X3 insert size 42E Family History Father Heart disease CAD (coronary artery disease), Onset Age: 80 Other Cancer Denies family history of Diabetes Clotting disorder Dementia Hyperlipidemia Psychiatric illness Chronic kidney disease (CKD) Suicide Anesthesia complication Bleeding disorder Lung disease Hypertension Stroke Social History Smoking and tobacco/nicotine status: former use of tobacco/nicotine Quit status (tobacco/nicotine): has quit using Year quit tobacco: 2018 - 0.5 PPD x 15 Years Alcohol intake: current Alcohol intake frequency: 0-2 Drinks per Day Alcohol type: hard liquor Substance/Drug Use: never Lives independently: Yes Household members: spouse Marital status: service: No Current occupational status: retired Do you think of yourself as: Straight/Heterosexual Current gender identity: Male Vitals/I&O/Wt Last Vital Signs Temp 97.6 F 01/14/23 13:11 Pulse 103 H 01/14/23 16:45 Resp 20 H 01/14/23 16:45 BP 128/99 01/14/23 16:45 Pulse Ox 99 01/14/23 16:45 O2 Del Method Room Air 01/14/23 13:11 O2 Flow Rate 2 01/14/23 09:09 01/14/23 01/14/23 01/14/23 06:59 14:59 22:59 Intake Total 2300 / 2300 934.167 / 3234.167 Output Total Balance 2300 / 2300 919.167 / 3219.167 Weight last 48 hrs Weight 85.275 kg Physical Exam Narrative: awake , alert no distress on RA S1S2 RRR per report Lungs clear per report No edema Urinary Catheter Management: Shipman: Cath Placed During This Visit: yes Reason for Continuing Indwelling Catheter: Accurate Measurement of Urinary Output in Critically Ill Patients Urinary Catheter Date of Insertion: 01/14/23 Urinary Catheter Time of Insertion: 14:32 Data 01/14/23 10:06 01/14/23 10:06 Micro: Microbiology 01/14/23 10:55 Blood Culture - Preliminary Blood SPECIMEN COLLECTED 01/14/23 10:06 Blood Culture - Preliminary Blood SPECIMEN COLLECTED A&P Assessment and plan (1) Renal failure: Plan 1. Acute on chronic kidney disease stage III: Baseline creatinine around 2, now has LUCILLE with a fattening of 7.6 on presentation-likely possible ATN. Also patient likely be in sepsis. -Continue bicarbonate drip for for now and monitor renal function closely, patient currently oliguric. Repeat BMP. If no improvement in renal function and continues to have severe metabolic acidosis will require temporary dialysis. Patient agreeable if indicated. -No urinary obstruction seen on CT. 2. Sepsis: Severe hypokalemia with lactic acidosis. Continue bicarbonate drip, he was briefly on pressors 3. Severe metabolic acidosis: Increased anion gap, secondary to lactic acidosis and LUCILLE, monitor on bicarbonate drip 4. Recent ORIF of left ankle fracture, per podiatry wound healing well with no sign of infection 5. History of CHF, last ejection fraction 60% with diastolic dysfunction Patient evaluated using audiovisual cart. Time spent 40 minutes Consult Attestations Medical Necessity Statement: per medicien team Coding Level of Care Code Acute Code for Chg Fwd Diagnoses Renal failure N19
[2023-01-14 21:35] LABS: Anion Gap 23.2 (5-19); Blood Urea Nitrogen 79 mg/dL (8-23); Calcium 6.5 mg/dL (8.5-10.5); Carbon Dioxide 18 mmol/L (22-29); Chloride 97 mmol/L (98-107); Glucose 144 mg/dL (65-115); Osmolality Calculated 306 mOsm/kg (285-295); Potassium 3.2 mmol/L (3.5-5.1); Sodium 135 mmol/L (136-145)
[2023-01-14 21:46] LABS: Glucose Point of Care 138 mg/dL (70-110)
[2023-01-14] MEDS: sodium bicarbonate 150 MEQ in dextrose 5% 1,000 ML IV (23:51)
[2023-01-15] VITALS (25 sets, daily range): BP systolic 83–152; BP diastolic 49–88; PULSE 91–125; RESP 13–28; TEMP 36.3–36.9; O2SAT 90–97
[2023-01-15 04:59] LABS: Alanine Aminotransferase 15 U/L (0-41); Albumin Level 2.4 g/dL (3.5-5.2); Alkaline Phosphatase 107 U/L (40-130); Anion Gap 22.5 (5-19); Aspartate Amino Transferase 41 U/L (0-40); Blood Urea Nitrogen 75 mg/dL (8-23); Calcium 6.4 mg/dL (8.5-10.5); Carbon Dioxide 22 mmol/L (22-29); Chloride 97 mmol/L (98-107); Globulin 2.3 g/dL (1.3-4.6); Glucose 157 mg/dL (65-115); Magnesium 1.3 mg/dL (1.7-2.3); Osmolality Calculated 312 mOsm/kg (285-295); Phosphorus 6.6 mg/dL (2.5-4.5); Potassium 3.5 mmol/L (3.5-5.1); Sodium 138 mmol/L (136-145); Total Bilirubin 0.3 mg/dL (0.15-1.2); Total Protein 4.7 g/dL (6.6-8.7)
[2023-01-15 05:05] LABS: Basophils # 0.1 10^3/uL (0.0-0.1); Basophils % 0.6 %; Eosinophils # 0.1 10^3/uL (0.0-0.8); Lymphocytes # 1.4 10^3/uL (0.8-4.8); Lymphocytes % 15.2 %; Mean Corpuscular HGB Conc 33.1 g/dL (30-55); Mean Corpuscular Hemoglobin 28.7 pg (27-33); Mean Corpuscular Volume 86.6 fl (82-101); Mean Platelet Volume 11.5 fL (7.4-10.4); Monocytes # 0.9 10^3/uL (0.2-0.9); Monocytes % 9.2 %; Neutrophils % 73.5 %; Nucleated Red Blood Cells % 0 %; Platelet Count 230 10^3/cmm (157-399); Red Blood Count 4.04 10^6/uL (3.85-5.65); Red Cell Distribution Width 15.1 % (12.1-15.1); White Blood Count 9.26 10^3/uL (3.29-11.43)
[2023-01-15 07:53] LABS: Glucose Point of Care 114 mg/dL (70-110)
[2023-01-15] MEDS: sodium bicarbonate 150 MEQ in dextrose 5% 1,000 ML IV (09:17)
[2023-01-15] MEDS: magnesium sulfate premix 2 GM/50 ML PIGGYBACK IV (09:17)
[2023-01-15] MEDS: levothyroxine 50 mcg Tablet PO (09:20)
[2023-01-15] MEDS: aspirin 81 mg EC Tablet PO (09:21)
--- NOTE | 2023-01-15 10:48 | PM.PN ---
Subjective Subjective: UOP improved Vitals/I&O/Wt Last Vital Signs Temp 97.4 F L 01/15/23 00:00 Pulse 108 H 01/15/23 10:00 Resp 21 H 01/15/23 10:00 BP 120/72 01/15/23 10:00 Pulse Ox 93 01/15/23 09:00 O2 Del Method Room Air 01/14/23 13:11 O2 Flow Rate 2 01/14/23 09:09 01/14/23 01/15/23 01/15/23 22:59 06:59 14:59 Intake Total 1174.167 / 3474.167 1052.5 / 4526.667 1560 / 1560 Output Total 400 / 415 Balance 1159.167 / 3459.167 652.5 / 4111.667 1560 / 1560 Weight last 48 hrs Weight 85.275 kg Physical Exam Narrative: awake , alert no distress on RA S1S2 RRR per report Lungs clear per report No edema Urinary Catheter Management: Shipman: Cath Placed During This Visit: yes Reason for Continuing Indwelling Catheter: Accurate Measurement of Urinary Output in Critically Ill Patients Urinary Catheter Date of Insertion: 01/14/23 Urinary Catheter Time of Insertion: 14:32 Data 01/15/23 04:10 01/15/23 04:10 Micro: Microbiology 01/14/23 10:06 Blood Culture - Preliminary Blood NEGATIVE TO DATE 01/14/23 10:55 Blood Culture - Preliminary Blood SPECIMEN COLLECTED A&P Assessment and plan (1) Renal failure: Plan 1. Acute on chronic kidney disease stage III: Baseline creatinine around 2, now has LUCILLE with a fattening of 7.6 on presentation-likely possible ATN. Also patient likely be in sepsis. -on bicarbonate drip, monitor renal function closely, UOP picked up and Cr trending down, No indication for HD -Switch Bicarb drip to NS -No urinary obstruction seen on CT. 2. Sepsis: Severe hypokalemia with lactic acidosis. off pressors 3. Severe metabolic acidosis: Increased anion gap, secondary to lactic acidosis and LUCILLE, Improved 4. Recent ORIF of left ankle fracture, per podiatry wound healing well with no sign of infection 5. History of CHF, last ejection fraction 60% with diastolic dysfunction Patient evaluated using audiovisual cart. Time spent 40 minutes Attestations Medical Necessity Statement*: per mediicne team Coding Level of Care Code Acute Code for Chg Fwd Diagnoses Renal failure N19
--- NOTE | 2023-01-15 11:10 | P.PN_ITS ---
Subjective Subjective: Per report, diarrhea remains watery and copious. Blood pressure responsive to IVF resuscitation. Remains tachycardic. Making urine. Spouse bedside and supportive. Medications: Reviewed: Yes Vitals/I&O/Wt Last Vital Signs Temp 97.4 F L 01/15/23 00:00 Pulse 108 H 01/15/23 10:00 Resp 21 H 01/15/23 10:00 BP 120/72 01/15/23 10:00 Pulse Ox 93 01/15/23 09:00 O2 Del Method Room Air 01/14/23 13:11 O2 Flow Rate 2 01/14/23 09:09 01/14/23 01/15/23 01/15/23 22:59 06:59 14:59 Intake Total 1174.167 / 3474.167 1052.5 / 4526.667 1560 / 1560 Output Total 400 / 415 Balance 1159.167 / 3459.167 652.5 / 4111.667 1560 / 1560 Weight last 48 hrs Weight 85.275 kg Physical Exam Narrative: General: Patient is awake. Alert. Pleasant. In bed. Head: Normocephalic. Hard of hearing. Neck: No JVD. Cardiovascular: Tachycardic. No gallops. No murmurs. Lungs: Breath sounds are diminished in bilateral bases, no use of accessory muscles, no crackles or wheezes. Skin: No jaundice. Mottling has improved. Abdomen: Normal bowel sounds, abdomen soft and nontender. Extremities: No clubbing. LLE in new cast. Musculoskeletal: No erythematous joints. Neurological: Moves all 4 extremities. No myoclonus. Urinary Catheter Management: Shipman: Cath Placed During This Visit: yes Reason for Continuing Indwelling Catheter: Accurate Measurement of Urinary Output in Critically Ill Patients Urinary Catheter Date of Insertion: 01/14/23 Urinary Catheter Time of Insertion: 14:32 Data 01/15/23 04:10 01/15/23 04:10 Micro: Microbiology 01/14/23 10:55 Blood Culture - Preliminary Blood NEGATIVE TO DATE 01/14/23 10:06 Blood Culture - Preliminary Blood NEGATIVE TO DATE A&P Assessment and plan (1) Sepsis: Source: [place] to be GI source Chest CT w/o evidence of source Holding home leflunomide and sulfasalazine d/t infection Continue vancomycin (01/14-P) MRSA swab pending BCx pending Continue Merrem (01/14-P) C diff analysis pending Maintain low threshold for stress dose steroids (2) Renal failure: LUCILLE on CKD, baseline Cr ~1.8-2.1 Creatinine showing response to IVF Acidosis has resolved, can rotate off bicarb drip Avoid nephrotoxins Hold PPI Renally dose medications Daily assessment of fluid status (3) Seizure-like activity: Monitoring, suspect 2/2 sepsis (4) Dislocation, ankle: Cast change, no evidence of infection - image in chart Plan for therapy evaluation as diarrhea becomes more manageable Qualifiers: Encounter type: initial encounter Laterality: left Qualified Code(s): S93.05XA - Dislocation of left ankle joint, initial encounter (5) Carotid artery disease: Continue home aspirin Continue home statin Qualifiers: Carotid artery disease type: stenosis Laterality: left Qualified Code(s): I65.22 - Occlusion and stenosis of left carotid artery (6) Gout: Hold allopurinol d/t renal failure (7) HTN (hypertension): Hold antihypertensives due to sepsis Qualifiers: Hypertension type: primary hypertension Qualified Code(s): I10 - Essential (primary) hypertension (8) Inflammatory arthritis: Hold home meds due to infection/sepsis (9) Hypothyroidism: Continue Synthroid Qualifiers: Hypothyroidism type: other Qualified Code(s): E03.8 - Other specified hypothyroidism (10) Type 2 diabetes mellitus: Appears to be diet controlled, but will need to confirm SSI Avoid hypoglycemia Qualifiers: Diabetes mellitus watcher automat long goods insulin use: without watcher automat long goods use Diabetes mellitus complication status: with hyperglycemia Qualified Code(s): E11.65 - Type 2 diabetes mellitus with hyperglycemia Plan DVT ppx: Heparin Code: Full Attestations Medical Necessity Statement*: Patient requires ongoing hospitalization for IV fluids, IV abx, serial labs, and supportive care. Coding Level of Care Code Acute Code for g Fwd Diagnoses Sepsis A41.9 Renal failure N19 Seizure-like activity R56.9 Dislocation, ankle S93.05XA Encounter type: initial encounter Laterality: left Carotid artery disease I65.22 Carotid artery disease type: stenosis Laterality: left Gout M10.9 HTN (hypertension) I10 Hypertension type: primary hypertension Inflammatory arthritis M19.90 Hypothyroidism E03.8 Hypothyroidism type: other Type 2 diabetes mellitus E11.65 Diabetes mellitus residential insulin use: without residential use Diabetes mellitus complication status: with hyperglycemia
[2023-01-15] MEDS: atorvastatin 40 mg Tablet 20 MG PO (17:32)
[2023-01-15] MEDS: sodium chloride 0.9% 1,000 ML 100 ML IV (17:33)
[2023-01-15] MEDS: ondansetron 2 mg/ML SDV 2 mL 4 MG IVP (18:38)
[2023-01-15 22:22] LABS: Glucose Point of Care 189 mg/dL (70-110)
--- NOTE | 2023-01-15 23:00 | PC.NURSE ---
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 This nurse noted blood on the wipe every time this nurse cleaned the patients buttocks. Doctor was notified and orders for a rectal tube to be placed was received.
[2023-01-16] VITALS (25 sets, daily range): BP systolic 92–153; BP diastolic 56–91; PULSE 87–123; RESP 14–31; TEMP 36.5; O2SAT 88–99
--- NOTE | 2023-01-16 01:11 | PC.NURSE ---
Patient stated that they wanted the rectal tube out because it was uncomfortable. This nurse repositioned and tried other things to make the patient more comfortable but the patient still stated they wanted the rectal tube out. This nurse educated the patient on the complications that could occur from stool getting on the skin often. Patient understood and still wanted rectal tube out. Dr. Loya notified.
[2023-01-16 04:06] LABS: Basophils # 0.1 10^3/uL (0.0-0.1); Basophils % 0.6 %; Eosinophils % 0.4 %; Lymphocytes % 20.2 %; Mean Corpuscular HGB Conc 32.6 g/dL (30-55); Mean Corpuscular Hemoglobin 28.2 pg (27-33); Mean Corpuscular Volume 86.6 fl (82-101); Mean Platelet Volume 11.2 fL (7.4-10.4); Monocytes # 1.2 10^3/uL (0.2-0.9); Monocytes % 12.1 %; Neutrophils # 6.66 10^3/uL (1.8-7.7); Nucleated Red Blood Cells % 0 %; Platelet Count 220 10^3/cmm (157-399); Red Blood Count 4.04 10^6/uL (3.85-5.65); Red Cell Distribution Width 15.1 % (12.1-15.1); White Blood Count 10.09 10^3/uL (3.29-11.43)
[2023-01-16 04:30] LABS: Alanine Aminotransferase 15 U/L (0-41); Albumin Level 2.3 g/dL (3.5-5.2); Alkaline Phosphatase 137 U/L (40-130); Aspartate Amino Transferase 30 U/L (0-40); Blood Urea Nitrogen 64 mg/dL (8-23); Calcium 6.2 mg/dL (8.5-10.5); Carbon Dioxide 23 mmol/L (22-29); Chloride 91 mmol/L (98-107); Globulin 2.3 g/dL (1.3-4.6); Glucose 91 mg/dL (65-115); Magnesium 1.4 mg/dL (1.7-2.3); Osmolality Calculated 284 mOsm/kg (285-295); Phosphorus 4.5 mg/dL (2.5-4.5); Sodium 128 mmol/L (136-145); Total Bilirubin 0.3 mg/dL (0.15-1.2); Total Protein 4.6 g/dL (6.6-8.7)
[2023-01-16] MEDS: potassium chloride oral liq 20 mEq/15 mL UDC 40 MEQ PO (05:04)
[2023-01-16] MEDS: sodium chloride 0.9% 1,000 ML 100 ML IV ×2 (05:04→08:51)
[2023-01-16] MEDS: calcium gluconate 0.9% NaCL 1 GM/50 ML PREMIX IV ×2 (08:47→10:18)
[2023-01-16] MEDS: levothyroxine 50 mcg Tablet PO (08:52)
[2023-01-16] MEDS: aspirin 81 mg EC Tablet PO (08:52)
[2023-01-16] MEDS: magnesium sulfate premix 2 GM/50 ML PIGGYBACK IV (10:17)
--- NOTE | 2023-01-16 11:01 | PM.PN ---
Subjective Subjective: lost IV access Medications: Reviewed: Yes Vitals/I&O/Wt Last Vital Signs Temp 97.7 F 01/16/23 08:00 Pulse 93 01/16/23 09:00 Resp 18 01/16/23 09:00 BP 117/69 01/16/23 09:00 Pulse Ox 97 01/16/23 09:00 O2 Del Method Room Air 01/16/23 04:00 O2 Flow Rate 2 01/14/23 09:09 01/15/23 01/16/23 01/16/23 22:59 06:59 14:59 Intake Total 960 / 3515 1000 / 4515 868.333 / 868.333 Output Total 500 / 500 475 / 975 Balance 460 / 3015 525 / 3540 868.333 / 868.333 Weight last 48 hrs Weight 85.729 kg Physical Exam Narrative: awake , alert no distress on RA S1S2 RRR per report Lungs clear per report No edema Urinary Catheter Management: Shipman: Cath Placed During This Visit: yes Reason for Continuing Indwelling Catheter: Accurate Measurement of Urinary Output in Critically Ill Patients Urinary Catheter Date of Insertion: 01/14/23 Urinary Catheter Time of Insertion: 14:32 Data 01/16/23 03:36 01/16/23 03:36 Micro: Microbiology 01/14/23 10:55 Blood Culture - Preliminary Blood NEGATIVE TO DATE 01/14/23 10:06 Blood Culture - Preliminary Blood NEGATIVE TO DATE A&P Assessment and plan (1) Renal failure: Plan 1. Acute on chronic kidney disease stage III: Baseline creatinine around 2, now has LUCILLE with a fattening of 7.6 on presentation-likely possible ATN. Also patient likely be in sepsis. -s/p bicarbonate drip, monitor renal function closely, UOP picked up and Cr trending down, No indication for HD -s/p IVFs -No urinary obstruction seen on CT. 2. Sepsis: Severe hypokalemia with lactic acidosis. off pressors 3. Severe metabolic acidosis: Increased anion gap, secondary to lactic acidosis and LUCILLE, Improved 4. Recent ORIF of left ankle fracture, per podiatry wound healing well with no sign of infection 5. History of CHF, last ejection fraction 60% with diastolic dysfunction Patient evaluated using audiovisual cart. Time spent 20 minutes Attestations Medical Necessity Statement*: per mediicen team Coding Level of Care Code Acute Code for Chg Fwd Diagnoses Renal failure N19
--- NOTE | 2023-01-16 13:16 | XRR_ITS ---
PROCEDURE INFORMATION: Exam: XR Chest Exam date and time: 01/16/2023 2:35 PM Age: 77 years old Clinical indication: Device placement; Patient HX: Picc placement TECHNIQUE: Imaging protocol: Radiologic exam of the chest. Views: 1 view. COMPARISON: CT chest con [id number] 01/14/2023 9:13 PM FINDINGS: Tubes, catheters and devices: Right arm PICC terminates in the upper SVC. Lungs: Calcified granuloma left lower lung. Otherwise, unremarkable. Pleural spaces: Unremarkable. No pleural effusion. No pneumothorax. Heart/Mediastinum: Unremarkable. No cardiomegaly. Bones/joints: Bilateral shoulder arthroplasties. Mild scoliosis. XR/XR chest 1V portable [id number] IMPRESSION: No acute disease.
[2023-01-16] MEDS: potassium chloride ER 20 mEq Tablet 40 MEQ PO (13:20)
--- NOTE | 2023-01-16 13:30 | PC.NURSE ---
Consent obtained by myself and the patient. All risk and benefits discussed. Risk included but not limited to: dvt and infection. RUE scanned with US and basilic vein was the best option. Vein was straight, 4 mm, and free of visible clot. Pt draped in usual sterile fashion. Using real time US, lidocaine injected, vein accessed, and picc floated into position. Chest xray ordered and waiting confirmation of tip placement. EBL less then 5 ml. No bleeding no hematoma. Pt arm circumference is 30 cm at 10 cm above the ac fossa.
[2023-01-16] MEDS: zinc oxide oint 30 gm 1 APPLIC TOPICAL ×2 (14:00→16:00)
[2023-01-16 14:07] LABS: Glucose Point of Care 175 mg/dL (70-110)
--- NOTE | 2023-01-16 16:17 | P.PN_ITS ---
Subjective Subjective: Patient reports continued diarrhea with worsening buttock soreness. Per report, rectal tube as attempted overnight. He denies fevers or chills. States appetite is ok. Reports he slept OK. Medications: Reviewed: Yes Vitals/I&O/Wt Last Vital Signs Temp 97.7 F 01/16/23 08:00 Pulse 106 H 01/16/23 12:00 Resp 18 01/16/23 09:00 BP 126/62 01/16/23 12:00 Pulse Ox 95 01/16/23 12:00 O2 Del Method Room Air 01/16/23 04:00 O2 Flow Rate 2 01/14/23 09:09 01/16/23 01/16/23 01/16/23 06:59 14:59 22:59 Intake Total 1000 / 4515 1418.333 / 1418.333 Output Total 475 / 975 Balance 525 / 3540 1418.333 / 1418.333 Weight last 48 hrs Weight 85.729 kg Physical Exam Narrative: General: Patient is awake. Alert. Pleasant. In bed. Head: Normocephalic. Hard of hearing. Neck: No JVD. Cardiovascular: Normal S1 and S2. No gallops. No murmurs. Lungs: Breath sounds are diminished in bilateral bases, no use of accessory muscles, no crackles or wheezes. Skin: No jaundice. Mottling has markedly improved. Abdomen: Normal bowel sounds, abdomen soft and nontender. Extremities: No clubbing. LLE in cast. Musculoskeletal: No erythematous joints. Neurological: Moves all 4 extremities. No myoclonus. Urinary Catheter Management: Shipman: Cath Placed During This Visit: yes Reason for Continuing Indwelling Catheter: Accurate Measurement of Urinary Output in Critically Ill Patients Urinary Catheter Date of Insertion: 01/14/23 Urinary Catheter Time of Insertion: 14:32 Data 01/16/23 03:36 01/16/23 03:36 Micro: Microbiology 01/14/23 10:55 Blood Culture - Preliminary Blood NEGATIVE TO DATE A&P Assessment and plan (1) Sepsis: Source: [place] to be viral gastroenteritis Maintaining low threshold for reinitation of systemic abx Continue holding leflunomide and sulfasalazine Shiga toxin and c diff analysis pending, if negative plan to start anti-diarrhea agent Trial of zinc oxide for buttock barrier protection as he's developed perineal dermatitis (2) Renal failure: LUCILLE on CKD, baseline Cr ~1.8-2.1 Renal function is improving Avoid nephrotoxins Holding PPI Renally dose medications Daily assessment of fluid status Continue IVF, monitor for fluid overload (3) Seizure-like activity: Prior to admission, monitoring for recurrence Suspect 2/2 renal failure (4) Dislocation, ankle: Cast changed by podiatry upon admission, no evidence of infection - image in chart Plan for therapy evaluation as diarrhea becomes more manageable, hopefully on Tuesday Qualifiers: Encounter type: initial encounter Laterality: left Qualified Code(s): S93.05XA - Dislocation of left ankle joint, initial encounter (5) Carotid artery disease: Continue home aspirin Continue home statin Qualifiers: Carotid artery disease type: stenosis Laterality: left Qualified Code(s): I65.22 - Occlusion and stenosis of left carotid artery (6) Gout: Hold allopurinol d/t renal failure (7) HTN (hypertension): Hold antihypertensives due to sepsis BP is increasing, monitoring closely Qualifiers: Hypertension type: primary hypertension Qualified Code(s): I10 - Essential (primary) hypertension (8) Inflammatory arthritis: Hold home meds due to infection/sepsis (9) Hypothyroidism: Continue Synthroid Qualifiers: Hypothyroidism type: other Qualified Code(s): E03.8 - Other specified hypothyroidism (10) Type 2 diabetes mellitus: Appears to be diet controlled, but will need to confirm SSI Avoid hypoglycemia Qualifiers: Diabetes mellitus chcf insulin use: without chcf use Diabetes mellitus complication status: with hyperglycemia Qualified Code(s): E11.65 - Type 2 diabetes mellitus with hyperglycemia Plan DVT ppx: Heparin Code: Full Attestations Medical Necessity Statement*: Patient requires ongoing hospitalization for IV fluids, serial labs, and s upportive care. 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
[2023-01-16] MEDS: atorvastatin 40 mg Tablet 20 MG PO (17:34)
[2023-01-17] VITALS (8 sets, daily range): BP systolic 100–124; BP diastolic 60–75; PULSE 77–109; RESP 17–18; TEMP 36.4–36.8; O2SAT 95–97
--- NOTE | 2023-01-17 02:46 | PC.NURSE ---
Patient received from ICU. Report taken from MICHELLE Diaz. Patient is on room air and restng comfortably watching TV after linen change and brief replaced. No futher needs at this time.
[2023-01-17 03:59] LABS: Basophils # 0.1 10^3/uL (0.0-0.1); Basophils % 0.8 %; Eosinophils % 0.2 %; Hematocrit 35.2 % (37-53); Lymphocytes # 1.5 10^3/uL (0.8-4.8); Lymphocytes % 17.1 %; Mean Corpuscular HGB Conc 32.4 g/dL (30-55); Mean Corpuscular Hemoglobin 28.1 pg (27-33); Mean Corpuscular Volume 86.9 fl (82-101); Monocytes # 1.2 10^3/uL (0.2-0.9); Monocytes % 13.4 %; Neutrophils # 6.08 10^3/uL (1.8-7.7); Neutrophils % 67.7 %; Nucleated Red Blood Cells % 0 %; Platelet Count 209 10^3/cmm (157-399); Red Blood Count 4.05 10^6/uL (3.85-5.65); White Blood Count 8.97 10^3/uL (3.29-11.43)
[2023-01-17 06:42] LABS: Alanine Aminotransferase 16 U/L (0-41); Albumin Level 2.1 g/dL (3.5-5.2); Alkaline Phosphatase 221 U/L (40-130); Aspartate Amino Transferase 27 U/L (0-40); Blood Urea Nitrogen 61 mg/dL (8-23); Carbon Dioxide 18 mmol/L (22-29); Chloride 98 mmol/L (98-107); Globulin 2.5 g/dL (1.3-4.6); Glucose 128 mg/dL (65-115); Magnesium 1.6 mg/dL (1.7-2.3); Osmolality Calculated 289 mOsm/kg (285-295); Phosphorus 4.6 mg/dL (2.5-4.5); Sodium 130 mmol/L (136-145); Total Bilirubin 0.3 mg/dL (0.15-1.2); Total Protein 4.6 g/dL (6.6-8.7)
[2023-01-17 07:19] LABS: Glucose Point of Care 128 mg/dL (70-110)
[2023-01-17] MEDS: aspirin 81 mg EC Tablet PO (08:23)
[2023-01-17] MEDS: levothyroxine 50 mcg Tablet PO (08:23)
[2023-01-17] MEDS: montelukast sodium 10 mg Tablet PO (08:23)
--- NOTE | 2023-01-17 11:04 | PM.PN ---
Subjective Subjective: feels better Medications: Reviewed: Yes Vitals/I&O/Wt Last Vital Signs Temp 97.7 F 01/17/23 08:00 Pulse 90 01/17/23 08:00 Resp 17 01/17/23 08:00 BP 105/64 01/17/23 08:00 Pulse Ox 96 01/17/23 08:00 O2 Del Method Room Air 01/17/23 08:00 O2 Flow Rate 2 01/14/23 09:09 01/16/23 01/17/23 01/17/23 22:59 06:59 14:59 Intake Total 0 / 1418.333 Output Total 725 / 725 Balance -725 / 693.333 Weight last 48 hrs Weight 85.275 kg Weight 85.729 kg Physical Exam Narrative: awake , alert no distress on RA S1S2 RRR per report Lungs clear per report No edema Urinary Catheter Management: Shipman: Cath Placed During This Visit: yes Reason for Continuing Indwelling Catheter: Accurate Measurement of Urinary Output in Critically Ill Patients Urinary Catheter Date of Insertion: 01/14/23 Urinary Catheter Time of Insertion: 14:32 Data 01/17/23 03:44 01/17/23 06:11 A&P Assessment and plan (1) Renal failure: Plan 1. Acute on chronic kidney disease stage III: Baseline creatinine around 2, now has LUCILLE with a fattening of 7.6 on presentation-likely possible ATN. Also patient likely be in sepsis. -s/p bicarbonate drip, monitor renal function closely, UOP picked up and Cr trending down, -s/p IVFs -No urinary obstruction seen on CT. 2. Sepsis: Severe hypokalemia with lactic acidosis. off pressors 3. Severe metabolic acidosis: Increased anion gap, secondary to lactic acidosis and LUCILLE, Improved 4. Recent ORIF of left ankle fracture, per podiatry wound healing well with no sign of infection 5. History of CHF, last ejection fraction 60% with diastolic dysfunction Patient evaluated using audiovisual cart. Time spent 20 minutes Attestations Medical Necessity Statement*: per mediince team Coding Level of Care Code Acute Code for Chg Fwd Diagnoses Renal failure N19
[2023-01-17 11:31] LABS: Glucose Point of Care 140 mg/dL (70-110)
[2023-01-17] MEDS: loperamide 2 mg Capsule 4 MG PO (12:58)
[2023-01-17] MEDS: sodium chloride 0.9% 1,000 ML 75 ML IV (12:58)
--- NOTE | 2023-01-17 13:25 | PM.PN ---
Subjective Subjective: Patient has had multiple episodes of loose stools with semisolid consistency, Zinc for perianal dermatitis Give 1 dose of Imodium Start IV fluids patient is still hemoconcentrated with dehydration Added zinc Vitals/I&O/Wt Last Vital Signs Temp 98.2 F 01/17/23 11:34 Pulse 97 01/17/23 11:34 Resp 17 01/17/23 11:34 BP 101/60 01/17/23 11:34 Pulse Ox 96 01/17/23 11:34 O2 Del Method Room Air 01/17/23 11:34 O2 Flow Rate 2 01/14/23 09:09 01/16/23 01/17/23 01/17/23 22:59 06:59 14:59 Intake Total 0 / 1418.333 240 / 240 Output Total 725 / 725 Balance -725 / 693.333 240 / 240 Weight last 48 hrs Weight 85.275 kg Weight 85.729 kg Physical Exam Narrative: Obese male Perianal dermatitis No active skin opening Hyperemia extending all the way up to buttocks cleft S1, S2 Abdomen soft Pleasant and cooperative Currently on room air Urinary Catheter Management: Shipman: Cath Placed During This Visit: yes Reason for Continuing Indwelling Catheter: Accurate Measurement of Urinary Output in Critically Ill Patients Urinary Catheter Date of Insertion: 01/14/23 Urinary Catheter Time of Insertion: 14:32 Data 01/17/23 03:44 01/17/23 06:11 A&P Assessment and plan (1) Seizure-like activity: (2) Renal failure: (3) Sepsis: (4) Gout: (5) Inflammatory arthritis: (6) Anemia: (7) Type 2 diabetes mellitus: Qualifiers: Diabetes mellitus retirement insulin use: without predatory animal exterminator use Diabetes mellitus complication status: with hyperglycemia Qualified Code(s): E11.65 - Type 2 diabetes mellitus with hyperglycemia (8) CKD (chronic kidney disease): Qualifiers: Chronic kidney disease stage: unspecified stage Qualified Code(s): N18.9 - Chronic kidney disease, unspecified (9) Diarrhea: (10) Dehydration: (11) Acute kidney injury superimposed on chronic kidney disease: Plan Sepsis: Resolved Persistent diarrhea C. difficile needs to be ruled out, stool cultures are pending Patient has been treated for H. pylori with 2 weeks of antibiotics in the past, Acute on chronic kidney disease Creatinine improving with IV fluid hydration Start normal saline at 75 mill per hour Diarrhea with perianal dermatitis Apply zinc oxide at perianal area Barrier cream with vitamin A&E is being applied as well Ankle dislocation cast changed by Dr. Diane Gout: Allopurinol on hold due to worsening of kidney function Type 2 diabetes: Insulin sliding scale DVT prophylaxis heparin Full code Seizure related activity: Likely related to vasovagal Attestations Medical Necessity Statement*: Continue medical management Coding Level of Care Code Acute Code for Chg Fwd Diagnoses Seizure-like activity R56.9 Renal failure N19 Sepsis A41.9 Gout M10.9 Inflammatory arthritis M19.90 Anemia D64.9 Type 2 diabetes mellitus E11.65 Diabetes mellitus predatory animal exterminator insulin use: without retirement use Diabetes mellitus complication status: with hyperglycemia CKD (chronic kidney disease) N18.9 Chronic kidney disease stage: unspecified stage Diarrhea R19.7 Dehydration E86.0 Acute kidney injury superimposed on chronic kidney disease N17.9; N18.9
[2023-01-17 13:39] LABS: Methicillin-Resist S.aureu PCR NOT DETECTED (NOT DETECTED)
[2023-01-17] MEDS: zinc oxide oint 30 gm 1 APPLIC TOPICAL ×3 (13:55→21:26)
--- NOTE | 2023-01-17 14:11 | PC.SOCIAL ---
IMM Update pg 2 of IMM updated and reviewed w/ patient and his . Copy provided and Copy dated, initialed and placed in chart.
[2023-01-17] MEDS: heparin 5,000 unit/mL INJ 1 mL 5000 UNIT SUBCUT (15:29)
[2023-01-17] MEDS: cholestyramine powder 4 gm Pkt PO ×2 (15:29→17:02)
[2023-01-17 16:49] LABS: Glucose Point of Care 117 mg/dL (70-110)
[2023-01-17] MEDS: atorvastatin 40 mg Tablet 20 MG PO (17:02)
[2023-01-18] VITALS (8 sets, daily range): BP systolic 85–128; BP diastolic 55–68; PULSE 93–117; RESP 16–19; TEMP 36.3–36.8; O2SAT 95–98
[2023-01-18] MEDS: heparin 5,000 unit/mL INJ 1 mL 5000 UNIT SUBCUT ×2 (02:51→14:01)
[2023-01-18] MEDS: sodium chloride 0.9% 1,000 ML 75 ML IV (02:53)
[2023-01-18 06:25] LABS: Basophils # 0.1 10^3/uL (0.0-0.1); Basophils % 0.7 %; Eosinophils # 0.1 10^3/uL (0.0-0.8); Eosinophils % 0.6 %; Hematocrit 33.8 % (37-53); Lymphocytes # 1.8 10^3/uL (0.8-4.8); Lymphocytes % 19.8 %; Mean Corpuscular HGB Conc 32.8 g/dL (30-55); Mean Corpuscular Hemoglobin 28.8 pg (27-33); Mean Corpuscular Volume 87.6 fl (82-101); Mean Platelet Volume 10.8 fL (7.4-10.4); Monocytes # 1.2 10^3/uL (0.2-0.9); Monocytes % 12.7 %; Neutrophils # 5.91 10^3/uL (1.8-7.7); Neutrophils % 65.5 %; Nucleated Red Blood Cells % 0 %; Platelet Count 202 10^3/cmm (157-399); Red Blood Count 3.86 10^6/uL (3.85-5.65); Red Cell Distribution Width 15.1 % (12.1-15.1); White Blood Count 9.02 10^3/uL (3.29-11.43)
[2023-01-18 06:45] LABS: Glucose Point of Care 126 mg/dL (70-110)
[2023-01-18 07:01] LABS: Procalcitonin 0.87 ng/mL (0-0.5)
[2023-01-18 07:27] LABS: Anion Gap 18.1 (5-19); Blood Urea Nitrogen 48 mg/dL (8-23); Carbon Dioxide 16 mmol/L (22-29); Chloride 98 mmol/L (98-107); Glucose 135 mg/dL (65-115); Osmolality Calculated 281 mOsm/kg (285-295); Potassium 4.1 mmol/L (3.5-5.1); Sodium 128 mmol/L (136-145)
[2023-01-18] MEDS: aspirin 81 mg EC Tablet PO (08:27)
[2023-01-18] MEDS: montelukast sodium 10 mg Tablet PO (08:27)
[2023-01-18] MEDS: levothyroxine 50 mcg Tablet PO (08:27)
[2023-01-18] MEDS: cholestyramine powder 4 gm Pkt PO ×2 (08:27→17:05)
[2023-01-18] MEDS: sodium chloride 1 gm Tablet PO ×2 (08:27→17:05)
[2023-01-18] MEDS: sulfaSALAzine 500 mg Tablet PO ×2 (08:27→17:05)
--- NOTE | 2023-01-18 10:31 | P.PN_ITS ---
Subjective Subjective: Creatinine improving Sodium 128 Patient is acidotic With adequate urine output however he still hemoconcentrated Increase IV fluids to 100 mL/h Shigella E. coli compel up after stool toxin is negative C. difficile panel is still pending Vitals/I&O/Wt Last Vital Signs Temp 98.2 F 01/18/23 07:58 Pulse 112 H 01/18/23 07:58 Resp 17 01/18/23 07:58 BP 113/68 01/18/23 07:58 Pulse Ox 98 01/18/23 07:58 O2 Del Method Room Air 01/18/23 07:58 O2 Flow Rate 2 01/14/23 09:09 01/17/23 01/18/23 01/18/23 22:59 06:59 14:59 Intake Total 240 / 480 1000 / 1480 500 / 500 Output Total 825 / 825 Balance 240 / 480 175 / 655 500 / 500 Weight last 48 hrs Weight 86.228 kg Weight 85.275 kg Physical Exam Narrative: Patient is stating that he had a rough night last night Lower quadrant abdominal pain No active emesis Pleasant cooperative Currently on room air at the bedside Skin mottling noted around knees However bilateral good pulses of foot dorsalis pedis Foot are warm bilaterally Urinary Catheter Management: Shipman: Cath Placed During This Visit: yes Reason for Continuing Indwelling Catheter: Required Immobilization for Trauma or Surgery or Anesthesia Urinary Catheter Date of Insertion: 01/14/23 Urinary Catheter Time of Insertion: 14:32 Data 01/18/23 06:18 01/18/23 06:55 Micro: Microbiology 01/14/23 14:00 E. coli Shiga-like Toxin (PCR) - Final Stool Salmonella/Shigella Culture - Final Campylobacter (PCR) - Final A&P Assessment and plan (1) Acute kidney injury superimposed on chronic kidney disease: (2) Dehydration: (3) Seizure-like activity: (4) Diarrhea: (5) Renal failure: (6) Sepsis: (7) Dislocation, ankle: Qualifiers: Encounter type: initial encounter Laterality: left Qualified Code(s): S93.05XA - Dislocation of left ankle joint, initial encounter (8) Gout: (9) Inflammatory arthritis: (10) Type 2 diabetes mellitus: Qualifiers: Diabetes mellitus intermediate project manager insulin use: without intermediate project manager use Diabetes mellitus complication status: with hyperglycemia Qualified Code(s): E11.65 - Type 2 diabetes mellitus with hyperglycemia (11) Hypothyroidism: Qualifiers: Hypothyroidism type: other Qualified Code(s): E03.8 - Other specified hypothyroidism (12) CKD (chronic kidney disease): Qualifiers: Chronic kidney disease stage: unspecified stage Qualified Code(s): N18.9 - Chronic kidney disease, unspecified Plan Sepsis related to sepsis: Resolved Persistent diarrhea Inflammatory toxins are negative C. difficile panel still pending Patient responded well to cholestyramine and will Imodium yesterday Afebrile Perianal dermatitis we are applying zinc vitamin A&E cream Allopurinol on hold for acute on chronic kidney disease Acute on chronic kidney disease related dehydration creatinine improving adequate urine output Patient is acidotic today appreciate nephro recommendations, added bicarb drip DVT prophylaxis heparin Skin mottling No signs of ischemic ulcers, feet are warm bilaterally with good dorsalis pedis pulses Attestations Medical Necessity Statement*: Continue medical management Diagnoses Acute kidney injury superimposed on chronic kidney disease N17.9; N18.9 Dehydration E86.0 Seizure-like activity R56.9 Diarrhea R19.7 Renal failure N19 Sepsis A41.9 Dislocation, ankle S93.05XA Encounter type: initial encounter Laterality: left Gout M10.9 Inflammatory arthritis M19.90 Type 2 diabetes mellitus E11.65 Diabetes mellitus intermediate project manager insulin use: without intermediate project manager use Diabetes mellitus complication status: with hyperglycemia Hypothyroidism E03.8 Hypothyroidism type: other CKD (chronic kidney disease) N18.9 Chronic kidney disease stage: unspecified stage
[2023-01-18] MEDS: citric acid-sodium citrate 30 mL UDC 60 ML PO (10:32)
[2023-01-18] MEDS: zinc oxide oint 30 gm 1 APPLIC TOPICAL ×4 (10:34→20:26)
[2023-01-18] MEDS: sodium bicarbonate 150 MEQ in dextrose 5% 1,000 ML 100 MEQ IV (11:08)
[2023-01-18 12:01] LABS: Glucose Point of Care 189 mg/dL (70-110)
--- NOTE | 2023-01-18 16:23 | PM.PN ---
Subjective Subjective: no new complaints Medications: Reviewed: Yes Vitals/I&O/Wt Last Vital Signs Temp 97.8 F 01/18/23 15:27 Pulse 108 H 01/18/23 15:27 Resp 16 01/18/23 15:27 BP 116/66 01/18/23 15:27 Pulse Ox 97 01/18/23 15:27 O2 Del Method Room Air 01/18/23 15:27 O2 Flow Rate 2 01/14/23 09:09 01/18/23 01/18/23 01/18/23 06:59 14:59 22:59 Intake Total 1000 / 1480 1740 / 1740 Output Total 825 / 825 Balance 175 / 655 1740 / 1740 Weight last 48 hrs Weight 86.228 kg Weight 85.275 kg Physical Exam Narrative: awake , alert no distress on RA S1S2 RRR per report Lungs clear per report No edema Urinary Catheter Management: Shipman: Cath Placed During This Visit: yes Reason for Continuing Indwelling Catheter: Required Immobilization for Trauma or Surgery or Anesthesia Urinary Catheter Date of Insertion: 01/14/23 Urinary Catheter Time of Insertion: 14:32 Data 01/18/23 06:18 01/18/23 06:55 Micro: Microbiology 01/14/23 14:00 E. coli Shiga-like Toxin (PCR) - Final Stool Salmonella/Shigella Culture - Final Campylobacter (PCR) - Final A&P Assessment and plan (1) Renal failure: Plan 1. Acute on chronic kidney disease stage III: Baseline creatinine around 2, now has LUCILLE with a fattening of 7.6 on presentation-likely possible ATN. Also patient likely be in sepsis. -s/p bicarbonate drip, monitor renal function closely, UOP picked up and Cr trending down, -s/p IVFs -No urinary obstruction seen on CT. 2. Sepsis: Severe hypokalemia with lactic acidosis. off pressors 3. Severe metabolic acidosis: Increased anion gap, secondary to lactic acidosis and LUCILLE, placed on bicarb drip , added bicitra 4. Recent ORIF of left ankle fracture, per podiatry wound healing well with no sign of infection 5. History of CHF, last ejection fraction 60% with diastolic dysfunction 6. Hyponatremia : mild , monitor Patient evaluated using audiovisual cart. Time spent 20 minutes Attestations Medical Necessity Statement*: per emicine team Coding Level of Care Code Acute Code for Chg Fwd Diagnoses Renal failure N19
[2023-01-18 17:00] LABS: Glucose Point of Care 192 mg/dL (70-110)
[2023-01-18] MEDS: atorvastatin 40 mg Tablet 20 MG PO (17:05)
[2023-01-18 21:11] LABS: Glucose Point of Care 182 mg/dL (70-110)
[2023-01-19] VITALS (7 sets, daily range): BP systolic 80–163; BP diastolic 56–70; PULSE 84–116; RESP 16–18; TEMP 36.6–36.9; O2SAT 94–97
[2023-01-19] MEDS: sodium bicarbonate 150 MEQ in dextrose 5% 1,000 ML 100 MEQ IV (01:18)
[2023-01-19] MEDS: heparin 5,000 unit/mL INJ 1 mL 5000 UNIT SUBCUT ×2 (01:47→14:10)
[2023-01-19 05:14] LABS: Basophils # 0.1 10^3/uL (0.0-0.1); Basophils % 0.9 %; Eosinophils % 0.4 %; Lymphocytes # 1.3 10^3/uL (0.8-4.8); Lymphocytes % 16.9 %; Mean Corpuscular HGB Conc 32.7 g/dL (30-55); Mean Corpuscular Hemoglobin 28.9 pg (27-33); Mean Corpuscular Volume 88.2 fl (82-101); Mean Platelet Volume 11.6 fL (7.4-10.4); Monocytes # 1.3 10^3/uL (0.2-0.9); Monocytes % 15.9 %; Neutrophils # 5.18 10^3/uL (1.8-7.7); Neutrophils % 65.1 %; Nucleated Red Blood Cells % 0 %; Platelet Count 180 10^3/cmm (157-399); Red Blood Count 3.74 10^6/uL (3.85-5.65); Red Cell Distribution Width 15.1 % (12.1-15.1); White Blood Count 7.94 10^3/uL (3.29-11.43)
[2023-01-19 05:36] LABS: Anion Gap 17.5 (5-19); Blood Urea Nitrogen 47 mg/dL (8-23); Calcium 6.9 mg/dL (8.5-10.5); Carbon Dioxide 21 mmol/L (22-29); Chloride 94 mmol/L (98-107); Glucose 148 mg/dL (65-115); Osmolality Calculated 283 mOsm/kg (285-295); Potassium 3.5 mmol/L (3.5-5.1); Sodium 129 mmol/L (136-145)
[2023-01-19 06:52] LABS: Glucose Point of Care 140 mg/dL (70-110)
--- NOTE | 2023-01-19 07:05 | P.PN_ITS ---
Subjective Subjective: Low blood pressure We will start LR Discontinue bicarb drip acidosis improved Afebrile No leukocytosis C. difficile panel still pending We will try to call [facility] lab to get the result Loose stools have transitioned to semisolid Stool frequency has improved as well Vitals/I&O/Wt Last Vital Signs Temp 98.5 F 01/19/23 03:45 Pulse 98 01/19/23 05:40 Resp 16 01/19/23 03:45 BP 91/56 01/19/23 03:45 Pulse Ox 97 01/19/23 03:45 O2 Del Method Room Air 01/19/23 03:45 O2 Flow Rate 2 01/14/23 09:09 01/18/23 01/19/23 01/19/23 22:59 06:59 14:59 Intake Total 1510 / 3250 Output Total 300 / 300 500 / 800 Balance 1210 / 2950 -500 / 2450 Weight last 48 hrs Weight 86.324 kg Weight 86.228 kg Physical Exam Narrative: Chronic peritonitis however my abdominal pain hypogastric region GCS 15 Hemodynamic stable S1, S2 Pleasant and cooperative Currently on room air Open skin ulcer around perianal dermatitis Urinary Catheter Management: Shipman: Cath Placed During This Visit: yes Reason for Continuing Indwelling Catheter: Assist Healing of Perineal & Sacral Wounds- Incontinent Patients Urinary Catheter Date of Insertion: 01/14/23 Urinary Catheter Time of Insertion: 14:32 Data 01/19/23 04:56 01/19/23 04:56 A&P Assessment and plan (1) Acute kidney injury superimposed on chronic kidney disease: (2) Dehydration: (3) Diarrhea: (4) Seizure-like activity: (5) Renal failure: (6) Sepsis: (7) Gout: (8) Inflammatory arthritis: (9) Anemia: (10) Type 2 diabetes mellitus: Qualifiers: Diabetes mellitus complication status: with hyperglycemia Diabetes mellitus jail insulin use: without superintendent marine oil terminal use Qualified Code(s): E11.65 - Type 2 diabetes mellitus with hyperglycemia Plan Will apply concentrated zinc, pharmacy only had 20% zinc concentration, will ask to bring in 40% from [facility] if possible C. difficile panel still pending we will call [facility] today Electrolytes replenished Normal anion gap acidosis likely related to normal saline and diarrhea: Improved discontinue bicarb drip Acute on chronic kidney disease: Creatinine improving on daily basis Appreciate nephro recommendations Stool frequency has improved Perianal dermatitis has worsened Afebrile no leukocytosis We will repeat CT scan today of abdomen pelvis without contrast Attestations Medical Necessity Statement*: Continue medical management Diagnoses Acute kidney injury superimposed on chronic kidney disease N17.9; N18.9 Dehydration E86.0 Diarrhea R19.7 Seizure-like activity R56.9 Renal failure N19 Sepsis A41.9 Gout M10.9 Inflammatory arthritis M19.90 Anemia D64.9 Type 2 diabetes mellitus E11.65 Diabetes mellitus complication status: with hyperglycemia Diabetes mellitus superintendent marine oil terminal insulin use: without superintendent marine oil terminal use
--- NOTE | 2023-01-19 07:07 | CT_ITS ---
WS: [id number] CT ABDOMEN PELVIS TECHNIQUE: Noncontrast CT of the abdomen and pelvis with coronal and sagittal reformatted images. CLINICAL INFORMATION: colitis COMPARISON: CT 01/14/2023 DLP: 773.[address] scans at [facility] use at least one of these dose optimization techniques: automated e xposure control; mA and/or kV adjustment per patient size (includes targeted exams where dose is matc hed to clinical indication); or iterative reconstruction. FINDINGS: Mild inflammatory stranding and edema about the LEFT colon and sigmoid colon in the LEFT lower quadra nt. Findings suspicious for colitis or diverticulitis. Numerous diverticuli. No drainable abscess or fluid collection. Recommend clinical correlation with colonic symptoms. Subsegmental ectasis in the lung bases. A few inflammatory tree-in-bud opacities in the RIGHT middle lobe. Subsegmental ectasis with bronchiectasis in the lung bases. A few tiny subcentimeter nodules in the RIGHT lower lobe and partially visualized in RIGHT middle lobe. RIGHT middle lobe nodule measure s 5 mm. Noncontrast liver is normal. Gallbladder is contracted. Normal GE junction. Adrenal glands are normal . No hydronephrosis in either kidney. Fat-containing lesion lower pole LEFT kidney likely angiomyolip eric or cortical scarring unchanged measuring 2.2 x 1.2 cm. Noncontrast spleen is normal. Noncontrast pancreas is normal. Normal caliber abdominal aorta. Aortic calcification. Few small renal cysts. Normal caliber abdominal aorta. Shipman catheter. RIGHT MALIHA. Sero ma overlying the RIGHT greater trochanter presumably due to recent surgery. IMPRESSION: 1. Slight inflammatory stranding about the descending LEFT colon and sigmoid colon suspicious for co litis or diverticulitis. No drainable abscess or fluid collection recommend correlation with clinical symptoms. 2. No other significant changes compared to previous. 3. Shipman catheter in place. 4. No other acute findings.
[2023-01-19] MEDS: sulfaSALAzine 500 mg Tablet PO ×2 (08:57→18:59)
[2023-01-19] MEDS: sodium chloride 1 gm Tablet PO ×2 (08:57→18:55)
[2023-01-19] MEDS: montelukast sodium 10 mg Tablet PO (08:57)
[2023-01-19] MEDS: levothyroxine 50 mcg Tablet PO (08:57)
[2023-01-19] MEDS: aspirin 81 mg EC Tablet PO (08:57)
[2023-01-19] MEDS: cholestyramine powder 4 gm Pkt PO ×2 (08:57→18:55)
[2023-01-19] MEDS: lactated ringers 1,000 ML 100 ML IV ×2 (08:57→18:59)
[2023-01-19] MEDS: zinc oxide oint 30 gm 1 APPLIC TOPICAL ×4 (08:57→19:54)
[2023-01-19 11:17] LABS: Glucose Point of Care 202 mg/dL (70-110)
--- NOTE | 2023-01-19 12:04 | PC.SOCIAL ---
IMM Update pg 2 of IMM updated and reviewed w/ patient and his . Copy provided and Copy dated, initialed and placed in chart.
[2023-01-19] MEDS: vancomycin 125 mg Capsule 250 MG PO ×3 (12:07→23:19)
[2023-01-19] MEDS: metroNIDAZOLE IV 500 MG/100 ML PREMIX 100 MG IV ×2 (12:07→18:55)
--- NOTE | 2023-01-19 13:08 | PM.PN ---
Subjective Subjective: no new complaints Medications: Reviewed: Yes Vitals/I&O/Wt Last Vital Signs Temp 97.9 F 01/19/23 08:00 Pulse 88 01/19/23 08:00 Resp 17 01/19/23 08:00 BP 108/59 01/19/23 08:00 Pulse Ox 94 01/19/23 08:00 O2 Del Method Room Air 01/19/23 03:45 O2 Flow Rate 2 01/14/23 09:09 01/18/23 01/19/23 01/19/23 22:59 06:59 14:59 Intake Total 1510 / 3250 1150 / 1150 Output Total 300 / 300 500 / 800 Balance 1210 / 2950 -500 / 2450 1150 / 1150 Weight last 48 hrs Weight 86.324 kg Weight 86.228 kg Physical Exam Narrative: awake , alert no distress on RA S1S2 RRR per report Lungs clear per report No edema Urinary Catheter Management: Shipman: Cath Placed During This Visit: yes Reason for Continuing Indwelling Catheter: Assist Healing of Perineal & Sacral Wounds- Incontinent Patients Urinary Catheter Date of Insertion: 01/14/23 Urinary Catheter Time of Insertion: 14:32 Data 01/19/23 04:56 01/19/23 04:56 Micro: Microbiology 01/14/23 10:55 Blood Culture - Final Blood NO GROWTH AFTER 5 DAYS 01/14/23 10:06 Blood Culture - Final Blood NO GROWTH AFTER 5 DAYS A&P Assessment and plan (1) Renal failure: Plan 1. Acute on chronic kidney disease stage III: Baseline creatinine around 2, now has LUCILLE with a creatinine of 7.6 on presentation-likely possible ATN. Also patient likely be in sepsis. -s/p bicarbonate drip, monitor renal function closely, UOP picked up and Cr trending down, -s/p IVFs -No urinary obstruction seen on CT. 2. Sepsis: Severe hypokalemia with lactic acidosis. off pressors 3. Severe metabolic acidosis: Increased anion gap, secondary to lactic acidosis and LUCILLE, placed on bicarb drip , added bicitra 4. Recent ORIF of left ankle fracture, per podiatry wound healing well with no sign of infection 5. History of CHF, last ejection fraction 60% with diastolic dysfunction 6. Hyponatremia : mild , monitor Patient evaluated using audiovisual cart. Time spent 20 minutes Attestations Medical Necessity Statement*: per medicine team Coding Level of Care Code Acute Code for Chg Fwd Diagnoses Renal failure N19
[2023-01-19 17:19] LABS: Glucose Point of Care 118 mg/dL (70-110)
[2023-01-19] MEDS: atorvastatin 40 mg Tablet 20 MG PO (18:55)
[2023-01-19 21:40] LABS: Glucose Point of Care 230 mg/dL (70-110)
[2023-01-20] VITALS (13 sets, daily range): BP systolic 80–166; BP diastolic 48–82; PULSE 89–113; RESP 15–18; TEMP 36.4–36.8; O2SAT 94–98; BMI 29.2
--- NOTE | 2023-01-20 01:15 | PC.NURSE ---
Patient's blood pressure has been low tonight but map remaining above 65 until 0100 his blood pressure was 80/48, Dr. Silva notified and ordered 500ml bolus and recheck after.
[2023-01-20] MEDS: metroNIDAZOLE IV 500 MG/100 ML PREMIX 100 MG IV ×3 (02:20→18:12)
[2023-01-20] MEDS: heparin 5,000 unit/mL INJ 1 mL 5000 UNIT SUBCUT ×2 (02:20→13:56)
--- NOTE | 2023-01-20 02:47 | PC.NURSE ---
Dr. Silva notified post bolus bp is 102/67; no new orders at this time
[2023-01-20] MEDS: lactated ringers 500 ML 999 ML IV (03:00)
[2023-01-20] MEDS: lactated ringers 1,000 ML 100 ML IV ×2 (04:08→13:56)
[2023-01-20 05:23] LABS: Basophils # 0.1 10^3/uL (0.0-0.1); Basophils % 0.6 %; Hematocrit 30.1 % (37-53); Lymphocytes # 1.5 10^3/uL (0.8-4.8); Lymphocytes % 13.4 %; Mean Corpuscular HGB Conc 32.9 g/dL (30-55); Mean Corpuscular Hemoglobin 28.5 pg (27-33); Mean Corpuscular Volume 86.7 fl (82-101); Mean Platelet Volume 12.1 fL (7.4-10.4); Monocytes # 1.5 10^3/uL (0.2-0.9); Monocytes % 13.4 %; Neutrophils # 8.14 10^3/uL (1.8-7.7); Neutrophils % 71.7 %; Nucleated Red Blood Cells % 0 %; Platelet Count 184 10^3/cmm (157-399); Red Blood Count 3.47 10^6/uL (3.85-5.65); White Blood Count 11.35 10^3/uL (3.29-11.43)
[2023-01-20] MEDS: vancomycin 125 mg Capsule 250 MG PO (05:30)
[2023-01-20 05:42] LABS: Anion Gap 17.8 (5-19); Blood Urea Nitrogen 49 mg/dL (8-23); Carbon Dioxide 23 mmol/L (22-29); Chloride 96 mmol/L (98-107); Glucose 126 mg/dL (65-115); Osmolality Calculated 291 mOsm/kg (285-295); Potassium 3.8 mmol/L (3.5-5.1); Sodium 133 mmol/L (136-145)
--- NOTE | 2023-01-20 05:54 | PM.PN ---
Subjective Subjective: Noted low BP diarrhea improving Medications: Reviewed: Yes Vitals/I&O/Wt Last Vital Signs Temp 98.3 F 01/20/23 03:52 Pulse 99 01/20/23 03:52 Resp 17 01/20/23 03:52 BP 101/61 01/20/23 03:52 Pulse Ox 94 01/20/23 03:52 O2 Del Method Room Air 01/20/23 03:52 O2 Flow Rate 2 01/14/23 09:09 01/19/23 01/19/23 01/20/23 14:59 22:59 06:59 Intake Total 1490 / 1490 1100 / 2590 1515 / 4105 Output Total 600 / 600 200 / 800 Balance 890 / 890 1099 / 1989 1315 / 3305 Weight last 48 hrs Weight 84.822 kg Weight 86.324 kg Physical Exam Narrative: awake , alert no distress on RA S1S2 RRR per report Lungs clear per report No edema Urinary Catheter Management: Shipman: Cath Placed During This Visit: yes Reason for Continuing Indwelling Catheter: Other Urinary Catheter Date of Insertion: 01/14/23 Urinary Catheter Time of Insertion: 14:32 Data 01/20/23 05:00 01/20/23 05:00 Micro: Microbiology 01/14/23 10:55 Blood Culture - Final Blood NO GROWTH AFTER 5 DAYS 01/14/23 10:06 Blood Culture - Final Blood NO GROWTH AFTER 5 DAYS A&P Assessment and plan (1) Renal failure: Plan 1. Acute on chronic kidney disease stage III: Baseline creatinine around 2, now has LUCILLE with a creatinine of 7.6 on presentation-likely possible ATN. Also patient likely be in sepsis. -s/p bicarbonate drip, monitor renal function closely, - Has diarrhea , noted colitis on CT , restarted IVF - LR -Cr rise noted due to low BPs and hypovolemia -No urinary obstruction seen on CT. 2. Sepsis: Severe hypokalemia with lactic acidosis. 3. Severe metabolic acidosis: Increased anion gap, secondary to diarrhea , lactic acidosis and LUCILLE, s/p bicarb drip 4. Recent ORIF of left ankle fracture, per podiatry wound healing well with no sign of infection 5. History of CHF, last ejection fraction 60% with diastolic dysfunction 6. Hyponatremia : mild , monitor 7. Colitis , C diff penidng Patient evaluated using audiovisual cart. Time spent 20 minutes Attestations Medical Necessity Statement*: per medicien team Coding Level of Care Code Acute Code for Chg Fwd Diagnoses Renal failure N19
[2023-01-20 06:18] LABS: Glucose Point of Care 108 mg/dL (70-110)
[2023-01-20] MEDS: albumin 12.5 GM/250 ML VIAL IV (06:29)
[2023-01-20] MEDS: sulfaSALAzine 500 mg Tablet PO ×2 (09:32→17:00)
[2023-01-20] MEDS: levothyroxine 50 mcg Tablet PO (09:32)
[2023-01-20] MEDS: sodium chloride 1 gm Tablet PO ×2 (09:33→17:00)
[2023-01-20] MEDS: aspirin 81 mg EC Tablet PO (09:34)
[2023-01-20] MEDS: montelukast sodium 10 mg Tablet PO (09:35)
[2023-01-20] MEDS: cefTRIAXone 1,000 MG in sodium chloride 0.9% (plus) 50 ML 100 MG IV (09:35)
[2023-01-20] MEDS: cholestyramine powder 4 gm Pkt PO ×2 (09:36→17:00)
[2023-01-20] MEDS: zinc oxide oint 30 gm 1 APPLIC TOPICAL (09:37)
--- NOTE | 2023-01-20 10:17 | PM.PN ---
Subjective Subjective: 2-3 loose stools today C. difficile negative We will add Imodium discontinue p.o. vancomycin Continue ceftriaxone and Flagyl Vitals/I&O/Wt Last Vital Signs Temp 97.5 F L 01/20/23 08:07 Pulse 95 01/20/23 08:07 Resp 15 01/20/23 08:07 BP 101/60 01/20/23 08:07 Pulse Ox 98 01/20/23 08:07 O2 Del Method Room Air 01/20/23 08:07 O2 Flow Rate 2 01/14/23 09:09 01/19/23 01/20/23 01/20/23 22:59 06:59 14:59 Intake Total 1100 / 2590 1515 / 4105 730 / 730 Output Total 200 / 800 Balance 1099 / 1989 1315 / 3305 730 / 730 Weight last 48 hrs Weight 84.822 kg Weight 86.324 kg Physical Exam Narrative: Awake and alert Abdomen Distended but nontender Pleasant cooperative No active pain GCS 15 Had 1 loose stool today Lower extremity mottling has improved significantly No sign of ischemic ulcer Left leg cast in place at the bedside Currently on room air Urinary Catheter Management: Shipman: Cath Placed During This Visit: yes Reason for Continuing Indwelling Catheter: Other Urinary Catheter Date of Insertion: 01/14/23 Urinary Catheter Time of Insertion: 14:32 Data 01/20/23 05:00 01/20/23 05:00 Micro: Microbiology 01/14/23 10:55 Blood Culture - Final Blood NO GROWTH AFTER 5 DAYS 01/14/23 10:06 Blood Culture - Final Blood NO GROWTH AFTER 5 DAYS A&P Assessment and plan (1) Acute kidney injury superimposed on chronic kidney disease: (2) Dehydration: (3) Diarrhea: (4) Seizure-like activity: (5) Renal failure: (6) Sepsis: (7) Dislocation, ankle: Qualifiers: Encounter type: initial encounter Laterality: left Qualified Code(s): S93.05XA - Dislocation of left ankle joint, initial encounter (8) Gout: (9) Inflammatory arthritis: (10) Type 2 diabetes mellitus: Qualifiers: Diabetes mellitus director long term care insulin use: without director long term care use Diabetes mellitus complication status: with hyperglycemia Qualified Code(s): E11.65 - Type 2 diabetes mellitus with hyperglycemia Plan Acute on chronic kidney disease: Improved Continue IV fluid hydration C. difficile ruled out Patient has diverticulitis Continue ceftriaxone and Flagyl Plan to discharge tomorrow Full code Regular diet Patient continue physical therapy We will arrange home health services on discharge tomorrow Attestations Medical Necessity Statement*: Discharge tomorrow Diagnoses Acute kidney injury superimposed on chronic kidney disease N17.9; N18.9 Dehydration E86.0 Diarrhea R19.7 Seizure-like activity R56.9 Renal failure N19 Sepsis A41.9 Dislocation, ankle S93.05XA Encounter type: initial encounter Laterality: left Gout M10.9 Inflammatory arthritis M19.90 Type 2 diabetes mellitus E11.65 Diabetes mellitus penitentiary insulin use: without penitentiary use Diabetes mellitus complication status: with hyperglycemia
[2023-01-20 11:14] LABS: Glucose Point of Care 125 mg/dL (70-110)
[2023-01-20] MEDS: loperamide 2 mg Capsule PO ×2 (12:13→18:11)
[2023-01-20] MEDS: atorvastatin 40 mg Tablet 20 MG PO (17:00)
[2023-01-20 17:17] LABS: Glucose Point of Care 81 mg/dL (70-110)
[2023-01-20 20:54] LABS: Glucose Point of Care 144 mg/dL (70-110)
[2023-01-21] MEDS: lactated ringers 1,000 ML 100 ML IV ×2 (00:31→10:33)
[2023-01-21] MEDS: heparin 5,000 unit/mL INJ 1 mL 5000 UNIT SUBCUT (02:03)
[2023-01-21] MEDS: metroNIDAZOLE IV 500 MG/100 ML PREMIX 100 MG IV ×2 (02:04→10:53)
[2023-01-21] MEDS: loperamide 2 mg Capsule PO ×2 (03:43→10:52)
[2023-01-21 04:30] VITALS: BP 100/62; PULSE 99; RESP 15; TEMP 36.5; O2SAT 95
[2023-01-21 05:41] VITALS: PULSE 94
[2023-01-21 06:05] LABS: Anion Gap 18.3 (5-19); Blood Urea Nitrogen 47 mg/dL (8-23); Calcium 7.1 mg/dL (8.5-10.5); Carbon Dioxide 21 mmol/L (22-29); Chloride 99 mmol/L (98-107); Glucose 101 mg/dL (65-115); Osmolality Calculated 292 mOsm/kg (285-295); Potassium 3.3 mmol/L (3.5-5.1); Sodium 135 mmol/L (136-145)
[2023-01-21 06:44] LABS: Glucose Point of Care 99 mg/dL (70-110)
[2023-01-21 07:58] VITALS: BP 100/65; PULSE 104; RESP 19; TEMP 36.6; O2SAT 96
[2023-01-21] MEDS: cholestyramine powder 4 gm Pkt PO (08:28)
[2023-01-21] MEDS: sulfaSALAzine 500 mg Tablet PO (08:28)
[2023-01-21] MEDS: montelukast sodium 10 mg Tablet PO (08:29)
[2023-01-21] MEDS: sodium chloride 1 gm Tablet PO (08:29)
[2023-01-21] MEDS: aspirin 81 mg EC Tablet PO (08:29)
[2023-01-21] MEDS: levothyroxine 50 mcg Tablet PO (08:29)
[2023-01-21] MEDS: cefTRIAXone 1,000 MG in sodium chloride 0.9% (plus) 50 ML 100 MG IV (08:30)
--- NOTE | 2023-01-21 10:54 | PM.DCS ---
Discharge Providers Date of Admission: 01/14/23 11:17 Date of Discharge: January 21, 2023 Attending Provider at Admission: Jesse Silva MD Attending Provider at Discharge: Ana Torrez MD Primary Care Provider: TAI Perez Diagnoses at Discharge Discharge Diagnosis (1) Renal failure: Status: Acute Reason for Visit Reason for Visit: seizure like activity Hospital Course Hospital Course 77-year-old male who was admitted for management evaluation of acute on chronic kidney disease, severe dehydration, loose stools, Shigella toxin, Campylobacter and E. coli toxins negative, C. difficile ruled out, patient was given Imodium and cholestyramine he was still having 2-3 episodes of loose stools on daily basis, his blood pressure remained on softer side required IV fluid hydration, he remained afebrile without any leukocytosis, As per the patient recently finished H. -mfo treatment, no previous history of C. difficile colitis. CT scan is showing diverticulitis for which she will get 5-day regimen of Flagyl and Levaquin, creatinine back to normal baseline 2.2 it improved with IV fluid hydration. Patient does have perianal dermatitis from loose stools, I have recommended 40% zinc application 3 times a day Physical Exam Narrative: Pleasant and cooperative Euvolemic GCS 15 Plan nontender abdomen Nonfocal neuro exam Currently on room air Hard of hearing S1, S2 Urinary Catheter Management: Shipman: Cath Placed During This Visit: yes Reason for Continuing Indwelling Catheter: Assist healing open wound Urinary Catheter Date of Insertion: 01/14/23 Urinary Catheter Time of Insertion: 14:32 Discharge Data Studies Completed and Pending Completed Studies During Hospitalization Category Date Time Status CT abdomen pelvis wo con [id number] Routine Cat Scan 01/19/23 07:[address] abdomen pelvis wo con [id number] Stat Cat Scan 01/14/23 11:[address] chest wo con [id number] Stat Cat Scan 01/14/23 11:[address] head wo con* [id number] Stat Cat Scan 01/14/23 11:08 Completed XR chest 1V portable [id number] Stat Exams 01/14/23 09:07 Completed XR chest 1V portable [id number] Stat Exams 01/16/23 13:16 Completed Salmonella / Shigella / Campy Routine Lab 01/14/23 14:00 Completed Radiology Impressions Chest CT 01/14/23 11:18 IMPRESSION: 1. Stable COPD . 2. Stable moderate calcified coronary artery disease. 3. Stable 3 mm right upper lobe pulmonary nodule. Axial series 4, image 39. No followup needed. Chest X-Ray 01/16/23 13:16 IMPRESSION: No acute disease. Laboratory Results WBC 11.35 10^3/uL (3.29-11.43) 01/20/23 05:00 RBC 3.47 10^6/uL (3.85-5.65) L 01/20/23 05:00 Hgb 9.90 g/dL (11.27-16.99) L 01/20/23 05:00 Hct 30.1 % (37-53) L 01/20/23 05:00 MCV 86.7 fl (82-101) 01/20/23 05:00 MCH 28.5 pg (27-33) 01/20/23 05:00 MCHC 32.9 g/dL (30-55) 01/20/23 05:00 RDW 15.0 % (12.1-15.1) 01/20/23 05:00 Plt Count 184 10^3/cmm (157-399) 01/20/23 05:00 MPV 12.1 fL (7.4-10.4) H 01/20/23 05:00 Neut % (Auto) 71.7 % 01/20/23 05:00 Lymph % (Auto) 13.4 % 01/20/23 05:00 [place] % (Auto) 13.4 % 01/20/23 05:00 Eos % (Auto) 0.0 % 01/20/23 05:00 Baso % (Auto) 0.6 % 01/20/23 05:00 Neut # (Auto) 8.14 10^3/uL (1.8-7.7) H 01/20/23 05:00 Lymph # (Auto) 1.5 10^3/uL (0.8-4.8) 01/20/23 05:00 [place]arton # (Auto) 1.5 10^3/uL (0.2-0.9) H 01/20/23 05:00 Eos # (Auto) 0.0 10^3/uL (0.0-0.8) 01/20/23 05:00 Baso # (Auto) 0.1 10^3/uL (0.0-0.1) 01/20/23 05:00 Nucleated RBC % (auto) 0 % 01/20/23 05:00 Nucleated RBCs # 0.0 /100WBC 01/20/23 05:00 Specimen Type Arterial 01/14/23 09:58 Sample Site Radial, right 01/14/23 09:58 ABG pH 7.37 (7.35-7.45) 01/14/23 09:58 ABG pCO2 17.5 mmHg (35-45) L* 01/14/23 09:58 ABG pO2 108.0 mmHg (80.0-100.0) H 01/14/23 09:58 ABG PO2/FiO2 Ratio 0 01/14/23 09:58 ABG HCO3 10.1 mmol/L (22-26) L 01/14/23 09:58 ABG O2 Saturation 97.8 01/14/23 09:58 ABG Base Excess -12.5 mmol/L (-2.0-2.0) L 01/14/23 09:58 Jesse Test Pos 01/14/23 09:58 A-a O2 Gradient 8.8 mmHg (5-10) 01/14/23 09:58 Hematocrit 44.1 % (42-52) 01/14/23 09:58 Hgb O2 Saturation 96.1 % (95-100) 01/14/23 09:58 Carboxyhemoglobin 0.9 %THgb (0.4-20.1) 01/14/23 09:58 Methemoglobin 0.9 % (0.4-1.5) 01/14/23 09:58 Total Hemoglobin 14.4 g/dL (14-18) 01/14/23 09:58 Sodium 134.0 mmol/L (131-143) 01/14/23 09:58 Potassium 3.8 mmol/L (3.5-5.0) 01/14/23 09:58 Glucose 177.0 mg/dL (70-115) H 01/14/23 09:58 Ionized Calcium 0.9 mmol/L (1.1-1.4) L 01/14/23 09:58 O2 Delivery Device Nc 01/14/23 09:58 O2 Liters/Min 2.0 % 01/14/23 09:58 FiO2 28.0 % 01/14/23 09:58 Needle Control [place] ID Gd 01/14/23 09:58 Sodium 135 mmol/L (136-145) L 01/21/23 05:25 Potassium 3.3 mmol/L (3.5-5.1) L 01/21/23 05:25 Chloride 99 mmol/L (98-107) 01/21/23 05:25 Carbon Dioxide 21 mmol/L (22-29) L 01/21/23 05:25 Anion Gap 18.3 (5-19) 01/21/23 05:25 BUN 47 mg/dL (8-23) H 01/21/23 05:25 Creatinine 2.2 mg/dL (0.7-1.2) H 01/21/23 05:25 GFR Calculation Not Reportable 01/21/23 05:25 Glucose 101 mg/dL (65-115) 01/21/23 05:25 POC Glucose 99 mg/dL (70-110) 01/21/23 06:40 Calculated Osmolality 292 mOsm/kg (285-295) 01/21/23 05:25 Lactic Acid 7.4 mmol/L (0.5-2.2) H* 01/14/23 10:06 Lactic Acid (Sepsis) 2.5 mmol/L (0.5-2.2) H 01/14/23 13:08 Calcium 7.1 mg/dL (8.5-10.5) L 01/21/23 05:25 Phosphorus 4.6 mg/dL (2.5-4.5) H 01/17/23 06:11 Magnesium 1.6 mg/dL (1.7-2.3) L 01/17/23 06:11 Total Bilirubin 0.3 mg/dL (0.15-1.2) 01/17/23 06:11 AST 27 U/L (0-40) 01/17/23 06:11 ALT 16 U/L (0-41) 01/17/23 06:11 Alkaline Phosphatase 221 U/L (40-130) H 01/17/23 06:11 Creatine Kinase 562 U/L (39-308) H* 01/14/23 10:06 C-Reactive Protein 119.3 mg/L (0.0-4.9) H 01/14/23 10:06 Total Protein 4.6 g/dL (6.6-8.7) L 01/17/23 06:11 Albumin 2.1 g/dL (3.5-5.2) L 01/17/23 06:11 Globulin 2.5 g/dL (1.3-4.6) 01/17/23 06:11 Procalcitonin 0.87 ng/mL (0-0.5) H 01/18/23 06:18 Urine Color Yellow (Yellow) 01/14/23 14:00 Urine Appearance Cloudy (CLEAR) A 01/14/23 14:00 Urine pH 5 (5-7) 01/14/23 14:00 Ur Specific [place] 1.025 (1.005-1.030) 01/14/23 14:00 Urine Protein 2+ (Negative) H 01/14/23 14:00 Urine Glucose (UA) Norm (Normal) 01/14/23 14:00 Urine Ketones 1+ (Negative) H 01/14/23 14:00 Urine Blood 3+ (Negative) H 01/14/23 14:00 Urine Nitrate Negative (Negative) 01/14/23 14:00 Urine Bilirubin 1+ (Negative) H 01/14/23 14:00 Urine Urobilinogen Norm mg/dL (Negative) 01/14/23 14:00 Ur Leukocyte Esterase Trace (Negative) H 01/14/23 14:00 Urine RBC 15-25 /hpf (0-2) H 01/14/23 14:00 Urine WBC 0-4 /hpf (0-5) H 01/14/23 14:00 Ur Squamous Epith Cells 25-40 /hpf (0-5) H 01/14/23 14:00 Amorphous Sediment Not Reportable 01/14/23 14:00 Urine Bacteria 2+ /hpf (NONE) H 01/14/23 14:00 Serum Ketones Negative (Negative) 01/14/23 10:06 C. difficile Tox (PCR) Not deteced (NOT DETECTE) 01/14/23 14:00 MRSA (PCR) Not detected (NOT DETECTED) 01/14/23 14:00 Vitals Last Vital Signs Temp 97.8 F 01/21/23 07:58 Pulse 104 H 01/21/23 07:58 Resp 19 H 01/21/23 07:58 BP 100/65 01/21/23 07:58 Pulse Ox 96 01/21/23 07:58 O2 Del Method Room Air 01/21/23 07:58 O2 Flow Rate 2 01/14/23 09:09 Discharge Plan Discharge Patient Disposition: Home Health Service Condition: Stable Prescriptions: New zinc oxide 30.6 % cream 1 applic topical TID Qty: 92 2RF loperamide 2 mg Capsule 2 mg PO QID PRN (Reason: Diarrhea) Qty: 30 0RF levofloxacin 750 mg tablet 750 mg PO EVERY OTHER DAY 8 Days Qty: 4 0RF cholestyramine (with sugar) 4 gram Powder In Packet 4 g PO BID Qty: 10 0RF metoprolol tartrate 25 mg tablet 12.5 mg PO BID Qty: 60 0RF Continued duloxetine 30 mg capsule, delayed rel sprinkle 30 mg PO DAILY pravastatin 80 mg tablet 80 mg PO QPM levothyroxine 50 mcg capsule 50 mcg PO DAILY sodium bicarbonate 650 mg tablet 650 mg PO TID tramadol 50 mg tablet See Rx Instructions PO BID Rx Instructions: 3 tablets AM, 2 tablets PM orally twice a day; ropinirole 0.5 mg tablet 0.5 mg PO DAILY allopurinol 100 mg tablet 200 mg PO DAILY Qty: 180 1RF leflunomide 20 mg tablet 20 mg PO DAILY Qty: 90 0RF prednisone 10 mg tablet 10 mg PO DAILY PRN (Reason: joint pain) Qty: 90 1RF sulfasalazine 500 mg tablet 0.5 g PO BID Qty: 60 3RF Rx Instructions: Take 1 tab daily x1wk then stay on 1 tab twice daily.... give with food (meal/snack) omeprazole 20 mg tablet,delayed release (DR/EC) 20 mg PO DAILY Qty: 90 1RF (DME) AFO See Rx Instructions .Route .MEDSUPPLY Qty: 2 0RF Rx Instructions: As directed made by the mina yadav (DME) bedside comode See Rx Instructions .Route .MEDSUPPLY Qty: 1 0RF Rx Instructions: As directed (DME) wheel chair See Rx Instructions .Route .MEDSUPPLY Qty: 1 0RF Rx Instructions: As directed hydrocodone-acetaminophen 5-325 mg tablet 1 tab PO QID PRN (Reason: Pain) Aspir-81 81 mg Tablet,Delayed Release (Dr/Ec) 81 mg PO DAILY montelukast 10 mg tablet 10 mg PO DAILY metronidazole 500 mg tablet 500 mg PO TID Qty: 15 0RF Discontinued lisinopril 10 mg tablet 10 mg PO BID clarithromycin 500 mg tablet 500 mg PO BID Discharge Orders: Discharge Order (Routine); Ordered 01/21/23 Ordered By: Ana Torrez Referrals: [facility] ([facility]) [Outside] Lior Rivera DO [Physician] - 3 weeks (Need colonoscopy after diverticulitis) Tiarra Armendariz FNP [Primary Care Provider] - Patient Instructions: Opioid Safety Activity Restrictions/Additional Instructions: I am discontinuing her lisinopril which she should not be taking because of chronic kidney disease Your blood pressure is soft 100/65 mmHg do not take any blood pressure medication,I will add low-dose metoprolol Please do not take metoprolol if heart rate below 60 or blood pressure below 100/90 mmHg Follow-up with your PCP within 3 to 4 days You will also need colonoscopy once your diverticulitis is over I am giving you referral to see Dr. Rivera for colonoscopy within 3 weeks Apply zinc oxide 40% as needed Discharge Attestations Time Spent in Discharge Care*: greater than 30 min Quality Metrics Clinical Quality Measures [ No reported AMI, CVA or VTE this stay] Coding Level of Care Code Acute Code for Chg Fwd Diagnoses Renal failure N19
[2023-01-21 11:29] VITALS: BP 131/71; PULSE 95; RESP 18; TEMP 36.4; O2SAT 96
[2023-01-21 11:53] LABS: Glucose Point of Care 129 mg/dL (70-110)
--- NOTE | 2023-01-21 12:22 | PC.SOCIAL ---
IMM Update pg 2 of IMM updated and reviewed w/ patient. Copy provided and Copy dated, initialed and placed in chart.
[2023-01-21 13:01] VITALS: BP 131/71; PULSE 95; RESP 18; TEMP 36.4; O2SAT 96
== END 2023-01-21 13:03 | disposition home health service (06) | DRG 872 ==
LOC: ER 09:42 → ICU 11:42 → MEDSURG 01-17 02:45
PROVIDERS: Hospitalist; Admitting Provider Internal Medicine; Emergency Provider Family Medicine; PCP Nurse Practitioner Family; Visit Provider Internal Medicine
DX: A41.9 Sepsis, unspecified organism (principal); N17.9 Acute kidney failure, unspecified; I13.0 Hypertensive heart and chronic kidney disease with heart failure and stage 1 through stage 4 chronic kidney disease, or unspecified chronic kidney disease; I50.30 Unspecified diastolic (congestive) heart failure; K57.92 Diverticulitis of intestine, part unspecified, without perforation or abscess without bleeding; E87.20 Acidosis, unspecified; R65.20 Severe sepsis without septic shock; E11.22 Type 2 diabetes mellitus with diabetic chronic kidney disease; N18.30 Chronic kidney disease, stage 3 unspecified; E86.0 Dehydration; L30.8 Other specified dermatitis; Z79.82 Long term (current) use of aspirin; J45.909 Unspecified asthma, uncomplicated; M10.9 Gout, unspecified; E78.5 Hyperlipidemia, unspecified; E03.9 Hypothyroidism, unspecified; Z85.46 Personal history of malignant neoplasm of prostate; M06.00 Rheumatoid arthritis without rheumatoid factor, unspecified site; Z90.79 Acquired absence of other genital organ(s); Z87.891 Personal history of nicotine dependence; E66.9 Obesity, unspecified; Z68.29 Body mass index [BMI] 29.0-29.9, adult; R55 Syncope and collapse; E87.6 Hypokalemia; I65.22 Occlusion and stenosis of left carotid artery; S93.05XD Dislocation of left ankle joint, subsequent encounter; X58.XXXD Exposure to other specified factors, subsequent encounter; I25.10 Atherosclerotic heart disease of native coronary artery without angina pectoris
CPT/HCPCS: 36415; 36416; 36573; 36592; 36600; 51702; 70450; 71045; 71250; 74176; 80048; 80051; 80053; 81001; 82009; 82330; 82550; 82805; 82962; 83605; 83735; 84100; 84145; 85025; 86140; 87040; 87045; 87427; 87449; 87493; 87641; 96365; 96367; 96372; 96376; 97110; 97161; 97530; 99285; J0610; J0696; J1644; J2185; J2405; J3370; J3475; J3490; J7030; J7040; J7050; J7070; J7120; P9045; Q3014

== ENCOUNTER 2023-01-24 13:29 | Inpatient (IN) | payer MEDICARE, SELFPAY ==
[2023-01-24] VITALS (19 sets, daily range): BP systolic 72–125; BP diastolic 31–71; PULSE 48–102; RESP 16–24; TEMP 36.7–37.1; O2SAT 96–100; BMI 29.0; BMI 29.7
--- NOTE | 2023-01-24 13:47 | ED_ITS ---
HPI - General Adult General: Chief complaint: General Medical Stated complaint: low bp Time Seen by Provider: 01/24/23 13:48 History of Present Illness: 77-year-old male presents emergency department via EMS personnel secondary to having significant low blood pressure while at home and feeling fatigued and weak and having a near syncopal episode per his . Patient's states he was recently admitted here on 01/14/2023 with concerns for sepsis, acute on chronic renal failure, and has been treated for colitis. Patient does endorse feeling increased fatigue and malaise.. Associated symptoms: Reports malaise and nausea Review of Systems General: Reports: 10 or more systems reviewed and unremarkable except in HPI and below Const: Reports: fatigue and malaise Card: Reports: pre-syncope GI: Reports: nausea and diarrhea Neuro: Reports: weakness in extremities and dizziness PFSH ED PFSH: Medical History Acute kidney injury superimposed on chronic kidney disease Allergic rhinosinusitis Anemia Asthma Atypical chest pain Calcium pyrophosphate deposition disease (CPPD) Carotid artery disease Cellulitis CKD (chronic kidney disease) Colon polyps Contusion of left foot, initial encounter Degenerative arthritis Dehydration Diarrhea Dislocation, ankle Fall risk care plan declined Gout Gout HTN (hypertension) Hyperlipidemia Hypersomnia Hyperuricemia Hypothyroidism Inflammatory arthritis Left foot pain Leukocytosis Neutrophilic leukocytosis Primary osteoarthritis of right hip Prostate cancer Pulmonary nodule seen on imaging study Recurrent syncope Renal failure Risk for falls Seizure-like activity Sepsis Seronegative rheumatoid arthritis of both hands Shortness of Breath Sprain of right shoulder Tendinopathy of right rotator cuff Type 2 diabetes mellitus Surgical History H/O hand surgery H/O prostatectomy (2017) Radical prostatectomy for prostate cancer History of left knee replacement History of left shoulder replacement History of right shoulder replacement (07/15/21) Right reverse total shoulder Hx of cataract surgery Hx of shoulder surgery (08/21/21) Closed reduction of right glenohumeral joint for dislocated right reverse total shoulder S/P total right hip arthroplasty Date of procedure: September 23, 2022 Diagnosis: Severe degenerative osteoarthritis of the right hip Procedure done: Right total hip arthroplasty Implants: The [employer] total hip system with a size 52 mm by E FanLib code Trident II Tritanium acetabular shell with an MDM liner size 42 inner diameter by E alpha code. A size 6 Accolade II 127? neck angle hip stem with a size 28 mm x -2.7 mm Biolox delta ceramic femoral head and a anabaptist MDM X3 insert size 42E Family History Father Heart disease CAD (coronary artery disease), Onset Age: 80 Other Cancer Denies family history of Diabetes Clotting disorder Dementia Hyperlipidemia Psychiatric illness Chronic kidney disease (CKD) Suicide Anesthesia complication Bleeding disorder Lung disease Hypertension Stroke Social History Smoking and tobacco/nicotine status: former use of tobacco/nicotine Quit status (tobacco/nicotine): has quit using Year quit tobacco: 2018 - 0.5 PPD x 15 Years Alcohol intake: current Alcohol intake frequency: 0-2 Drinks per Day Alcohol type: hard liquor Substance/Drug Use: never Lives independently: Yes Household members: spouse Marital status: service: No Current occupational status: retired Do you think of yourself as: Straight/Heterosexual Current gender identity: Male Physical Exam Narrative: EXAM NARRATIVE: Constitutional: Ill-appearing, with normal development. Vital signs reviewed as documented. Unkept. HENMT: Normocephalic, atraumatic. Extermal ears with normal appearance without drainage. Nose without drainage, normal appearance. Mucus membranes moist. Neck is supple, No jugular venous distension, trachea is midline, no appreciable carotid bruits. No lymphadenopathy. No meningeal signs. Flexion, extension and lateral rotation is without pain. Eyes: Pupils are equal, round, reactive to light and accommodation. No scleral icterus. Extra-ocular movement are intact. Thorax is symmetrical and with equal rise and fall with respirations. Resp: Decreased bilaterally in the bases secondary to body habitus,. No wheezes, rales, crackles or ronchi at present. Cardio: Regular rate and rhythm. Positive S1, S2. No appreciable murmurs, rubs or gallops. GI: Abdominal exam reveals normal bowel sounds to all quadrants. No organomegaly. No obvious palpable masses noted. No hepatomegally appreciated. Soft, nontender to palpation. Extremity: Extremities are 1+ bilateral lower extremity edema and both femoral and pedal pulses are 2+ and equal bilaterally. Moves all extremities well, sensation in all extremities. Neuro: Alert and oriented x4, person, place, time and situation. Cranial nerves II through XII are grossly intact, there is no focal neurological deficits that I can appreciate at present. Motor strength in the upper and lower extremities are equal and bilateral 5/5. Psych: Cooperative, calm, normal thought process, appropriate judgment. Skin: No rashes. Stage I wound to the buttocks and coccyx area Back: Symmetrical, no obvious deformity, No CVA tenderness Course Vital Signs: Vital signs: Vital Signs Temperature 98.8 F 01/24/23 13:34 Pulse Rate 92 01/24/23 17:42 Respiratory Rate 17 01/24/23 17:42 Blood Pressure 118/63 01/24/23 17:42 Pulse Oximetry 98 01/24/23 17:42 Oxygen Delivery Me thod Room Air 01/24/23 14:06 MDM - General Adult Medical Decision Making Physical exam completed and documented, I will obtain a CBC, CMP, procalcitonin and lactic acid as well as continue the patient's Flagyl and levofloxacin that he was prescribed prior to his recent discharge. I have reviewed the patient's previous medical records and it does appear that he was being treated for colitis. The patient's diarrhea has improved we we will send a stool sample off for evaluation and provide the patient IV fluid rehydration for his severe hypotension. Differential Diagnosis Colitis, dehydration, sepsis, Medical Records I reviewed the patient's medical records. Lab Data I reviewed the patient's lab results. 01/24/23 14:08 01/24/23 14:08 Radiology Impressions Chest X-Ray 01/24/23 13:48 IMPRESSION: No acute cardiopulmonary disease. Laboratory Results WBC 11.19 10^3/uL (3.29-11.43) 01/24/23 14:08 RBC 3.64 10^6/uL (3.85-5.65) L 01/24/23 14:08 Hgb 10.30 g/dL (11.27-16.99) L 01/24/23 14:08 Hct 32.0 % (37-53) L 01/24/23 14:08 MCV 87.9 fl (82-101) 01/24/23 14:08 MCH 28.3 pg (27-33) 01/24/23 14:08 MCHC 32.2 g/dL (30-55) 01/24/23 14:08 RDW 15.6 % (12.1-15.1) H 01/24/23 14:08 Plt Count 403 10^3/cmm (157-399) H 01/24/23 14:08 MPV 11.6 fL (7.4-10.4) H 01/24/23 14:08 Lymph % (Auto) Not Reportable 01/24/23 14:08 Emmons % (Auto) Not Reportable 01/24/23 14:08 Lymph # (Auto) Not Reportable 01/24/23 14:08 Emmons # (Auto) Not Reportable 01/24/23 14:08 Total Counted 100 (0-100) 01/24/23 14:08 Atypical Lymphs % 1.0 % (0-5) 01/24/23 14:08 Absolute Neutrophils 8.2 10^3/cmm (1.4-6.5) H 01/24/23 14:08 Segmented Neutrophils 71 % 01/24/23 14:08 Abs Segm Neuts (Man) 7.9 10/cmm (1.6-7.1) H 01/24/23 14:08 Band Neutrophils 2.0 % 01/24/23 14:08 Abs Band Neuts (Man) 0.2 10^3/cmm (0.0-1.2) 01/24/23 14:08 Absolute Lymphocytes 1.9 10^3/cmm (1.2-3.4) 01/24/23 14:08 Lymphocytes (Manual) 16 % 01/24/23 14:08 Monocytes (Manual) 7.0 % 01/24/23 14:08 Absolute Monocytes 0.8 10^3/cmm (0.1-0.6) H 01/24/23 14:08 Eosinophils (Manual) 0 % 01/24/23 14:08 Absolute Eosinophils 0.0 10^3/cmm (0.0-0.7) 01/24/23 14:08 Basophils (Manual) 0.0 % 01/24/23 14:08 Absolute Basophils 0.0 10^3/cmm (0.0-0.2) 01/24/23 14:08 Metamyelocytes 3.0 % 01/24/23 14:08 Platelet Estimate Increased (Normal) 01/24/23 14:08 Giant Platelets 1+ H 01/24/23 14:08 Prisca Cells 1+ H 01/24/23 14:08 Sodium 132 mmol/L (136-145) L 01/24/23 14:08 Potassium 3.9 mmol/L (3.5-5.1) 01/24/23 14:08 Chloride 98 mmol/L (98-107) 01/24/23 14:08 Carbon Dioxide 14 mmol/L (22-29) L 01/24/23 14:08 Anion Gap 23.9 (5-19) H 01/24/23 14:08 BUN 63 mg/dL (8-23) H 01/24/23 14:08 Creatinine 4.4 mg/dL (0.7-1.2) H 01/24/23 14:08 GFR Calculation Not Reportable 01/24/23 14:08 Glucose 73 mg/dL (65-115) 01/24/23 14:08 Calculated Osmolality 291 mOsm/kg (285-295) 01/24/23 14:08 Lactic Acid 4.2 mmol/L (0.5-2.2) H* 01/24/23 14:08 Lactic Acid (Sepsis) 1.4 mmol/L (0.5-2.2) 01/24/23 17:04 Calcium 6.6 mg/dL (8.5-10.5) L 01/24/23 14:08 Magnesium 1.4 mg/dL (1.7-2.3) L 01/24/23 14:08 Total Bilirubin 0.5 mg/dL (0.15-1.2) 01/24/23 14:08 AST 36 U/L (0-40) 01/24/23 14:08 ALT 15 U/L (0-41) 01/24/23 14:08 Alkaline Phosphatase 366 U/L (40-130) H 01/24/23 14:08 Troponin T Baseline 74 ng/L (0-15) H 01/24/23 14:08 Troponin T 120 Minute 71.37 ng/L (0-15) H 01/24/23 16:10 Delta Troponin T -2.63 ABS# (0-10) L 01/24/23 16:10 NT-Pro-B Natriuret Pep 1234 pg/mL (0-450) H 01/24/23 14:08 Total Protein 4.1 g/dL (6.6-8.7) L 01/24/23 14:08 Albumin 2.4 g/dL (3.5-5.2) L 01/24/23 14:08 Globulin 1.7 g/dL (1.3-4.6) 01/24/23 14:08 Procalcitonin 4.24 ng/mL (0-0.5) H 01/24/23 14:08 Urine Color Yellow (Yellow) 01/24/23 16:04 Urine Appearance Sl hazy (CLEAR) A 01/24/23 16:04 Urine pH 5 (5-7) 01/24/23 16:04 Ur Specific Lithia 1.020 (1.005-1.030) 01/24/23 16:04 Urine Protein Trace (Negative) 01/24/23 16:04 Urine Glucose (UA) Norm (Normal) 01/24/23 16:04 Urine Ketones Negative (Negative) 01/24/23 16:04 Urine Blood Neg (Negative) 01/24/23 16:04 Urine Nitrate Negative (Negative) 01/24/23 16:04 Urine Bilirubin 1+ (Negative) H 01/24/23 16:04 Urine Urobilinogen Norm mg/dL (Negative) 01/24/23 16:04 Ur Leukocyte Esterase 1+ (Negative) H 01/24/23 16:04 Urine RBC 0-4 /hpf (0-2) H 01/24/23 16:04 Urine WBC 0-4 /hpf (0-5) H 01/24/23 16:04 Ur Squamous Epith Cells 0-4 /hpf (0-5) H 01/24/23 16:04 Ur Transition Epith Cell 0-4 /hpf 01/24/23 16:04 Amorphous Sediment 1+ /hpf 01/24/23 16:04 Urine Bacteria Trace /hpf (NONE) 01/24/23 16:04 Hyaline Casts 10-15 /lpf H 01/24/23 16:04 Urine Mucus Trace /hpf 01/24/23 16:04 All radiology interpretation(s) finalized by discharge EKG Data Twelve-lead EKG obtained at 1400 and reviewed at 1405 demonstrates sinus rhythm with occasional PAC complexes ventricular rate is 88, KS interval 152, QRS duration 102, QT 412, QTc 458. There is no ST elevation or depression to demonstrate acute ischemia or infarction at present.: Computer generated interpretation: Chest X-Ray 01/24/23 13:48 IMPRESSION: No acute cardiopulmonary disease. Abdomen/Pelvis CT 01/24/23 19:31 IMPRESSION: 1. Prominent fluid in the small bowel and colon with some edema seen about the distal small bowel as well as the sigmoid colon suggestive of an enterocolitis. 2. Diverticulosis without diverticulitis. 3. Right hip arthroplasty changes. 4. Bibasilar atelectasis. 5. Left lower lobe calcified granuloma. 6. Emphysematous changes. 7. Hepatic steatosis. 8. 4 cm collection of fluid in the right posterolateral pelvis overlying the hip suggestive of a seroma, similar to prior exam. 9. Mild perinephric edema bilaterally suggestive of renal insufficiency, please correlate for pyelonephritis. Second twelve-lead EKG obtained at 1603 and reviewed at 1606 demonstrates sinus rhythm with intermittent PACs, ventricular rate 90 bpm, KS interval 159, QRS duration 94, QT 415, QTc [address] elevation or depression to demonstrate acute ischemia or infarction at present.: Computer generated interpretation: Chest X-Ray 01/24/23 13:48 IMPRESSION: No acute cardiopulmonary disease. Abdomen/Pelvis CT 01/24/23 19:31 IMPRESSION: 1. Prominent fluid in the small bowel and colon with some edema seen about the distal small bowel as well as the sigmoid colon suggestive of an enterocolitis. 2. Diverticulosis without diverticulitis. 3. Right hip arthroplasty changes. 4. Bibasilar atelectasis. 5. Left lower lobe calcified granuloma. 6. Emphysematous changes. 7. Hepatic steatosis. 8. 4 cm collection of fluid in the right posterolateral pelvis overlying the hip suggestive of a seroma, similar to prior exam. 9. Mild perinephric edema bilaterally suggestive of renal insufficiency, please correlate for pyelonephritis. Critical Care Time Critical Care Time: Critical Care Time: Yes Total Critical Care Time: 75 Attestation: This case had a high probability of a clinically significant, sudden, or life threatening deterioration of this patient's condition which required my full and direct attention, intervention and personal management. Discharge Plan Discharge Patient Disposition: Admitted As Inpatient Clinical Impression: Acute hypotension, Colitis, Near syncope, Acute dehydration Condition: Stable Prescriptions: No Action duloxetine 30 mg capsule, delayed rel sprinkle 30 mg PO QAM pravastatin 80 mg tablet 80 mg PO BEDTIME sodium bicarbonate 650 mg tablet 650 mg PO TID tramadol 50 mg tablet See Rx Instructions PO BID Rx Instructions: take 3 tablets (150mg) po in the AM and 2 tabs (100mg) in the PM ropinirole 0.5 mg tablet 0.5 mg PO BEDTIME prednisone 10 mg tablet 10 mg PO DAILY PRN (Reason: joint pain) Qty: 90 1RF (DME) AFO See Rx Instructions .Route .MEDSUPPLY Qty: 2 0RF Rx Instructions: As directed made by the mina yadav (DME) bedside comode See Rx Instructions .Route .MEDSUPPLY Qty: 1 0RF Rx Instructions: As directed (DME) wheel chair See Rx Instructions .Route .MEDSUPPLY Qty: 1 0RF Rx Instructions: As directed aspirin 81 mg Tablet,Delayed Release (Dr/Ec) 81 mg PO QAM zinc oxide 30.6 % cream 1 applic topical TID Qty: 92 2RF loperamide 2 mg Capsule 2 mg PO QID PRN (Reason: Diarrhea) Qty: 30 0RF cholestyramine (with sugar) 4 gram Powder In Packet 4 g PO BID Qty: 10 0RF levofloxacin 750 mg tablet 750 mg PO EVERY OTHER DAY 8 Days Qty: 4 0RF metronidazole 500 mg tablet 500 mg PO TID Qty: 15 0RF metoprolol tartrate 25 mg tablet 12.5 mg PO BID Qty: 60 0RF levothyroxine 50 mcg tablet 50 mcg PO QAM sulfasalazine 500 mg tablet 500 mg PO BID allopurinol 100 mg tablet 200 mg PO QAM leflunomide 20 mg tablet 20 mg PO QAM omeprazole 20 mg tablet,delayed release (DR/EC) 20 mg PO BID Referrals: Tiarra Armendariz FNP [Primary Care Provider] - Coding Level of Care Code ED [employer] for Shon Mosquera
--- NOTE | 2023-01-24 13:48 | XRR_ITS ---
PROCEDURE INFORMATION: Exam: XR Chest Exam date and time: 01/24/2023 2:05 PM Age: 77 years old Clinical indication: Other: Low BP; Additional info: Near-syncope TECHNIQUE: Imaging protocol: Radiologic exam of the chest. Views: 1 view. COMPARISON: CR (CHEST, ) 01/16/2023 2:35 PM FINDINGS: Lungs: Unremarkable. No consolidation. Pleural spaces: Unremarkable. No pleural effusion. No pneumothorax. Heart/Mediastinum: Unremarkable. No cardiomegaly. Bones/joints: Bilateral shoulder replacement. XR/XR chest 1V portable [id number] IMPRESSION: No acute cardiopulmonary disease.
--- NOTE | 2023-01-24 14:00 | ECG_ITS ---
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 Measurements Intervals [place] Rate: 88 P: 11 SD: 152 QRS: 18 QRSD: 102 T: 97 QT: 412 QTc: 500 Interpretive Statements SINUS RHYTHM WITH OCCASIONAL SUPRAVENTRICULAR PREMATURE COMPLEXES Compared to ECG 07/09/2020 09:02:11 No significant changes Abnormal ECG Electronically Signed On 01-24-2023 14:37:53 DRYWALL FINISHING FOREMAN by Edwin Webster M.D. [id number]
[2023-01-24 14:27] LABS: Mean Corpuscular HGB Conc 32.2 g/dL (30-55); Mean Corpuscular Hemoglobin 28.3 pg (27-33); Mean Corpuscular Volume 87.9 fl (82-101); Mean Platelet Volume 11.6 fL (7.4-10.4); Platelet Count 403 10^3/cmm (157-399); Red Blood Count 3.64 10^6/uL (3.85-5.65); Red Cell Distribution Width 15.6 % (12.1-15.1); White Blood Count 11.19 10^3/uL (3.29-11.43)
[2023-01-24] MEDS: sodium chloride 0.9% 1,000 ML 999 ML IV ×2 (14:34→15:40)
[2023-01-24 14:38] LABS: Troponin(5th) Baseline 74 ng/L (0-15)
[2023-01-24 14:52] LABS: NT Pro B Type Natriuretic Pept 1234 pg/mL (0-450); Procalcitonin 4.24 ng/mL (0-0.5)
[2023-01-24 15:03] LABS: Alanine Aminotransferase 15 U/L (0-41); Albumin Level 2.4 g/dL (3.5-5.2); Alkaline Phosphatase 366 U/L (40-130); Aspartate Amino Transferase 36 U/L (0-40); Blood Urea Nitrogen 63 mg/dL (8-23); Calcium 6.6 mg/dL (8.5-10.5); Carbon Dioxide 14 mmol/L (22-29); Chloride 98 mmol/L (98-107); Globulin 1.7 g/dL (1.3-4.6); Glucose 73 mg/dL (65-115); Magnesium 1.4 mg/dL (1.7-2.3); Osmolality Calculated 291 mOsm/kg (285-295); Sodium 132 mmol/L (136-145); Total Bilirubin 0.5 mg/dL (0.15-1.2); Total Protein 4.1 g/dL (6.6-8.7)
[2023-01-24 15:06] LABS: Anion Gap 23.9 (5-19); Potassium 3.9 mmol/L (3.5-5.1)
[2023-01-24 15:09] LABS: Lactic Sepsis W/Reflex 4.2 mmol/L (0.5-2.2)
[2023-01-24 15:14] LABS: Slide Review Slide Review Perform; Total Cells Counted 100 (0-100)
[2023-01-24 15:20] LABS: Absolute Segmented Neutrophil 7.9 10/cmm (1.6-7.1); Band Neutrophils Absolute 0.2 10^3/cmm (0.0-1.2); Eosinophils 0 %; Lymphocytes 16 %; Lymphocytes Absolute 1.9 10^3/cmm (1.2-3.4); Monocytes Absolute 0.8 10^3/cmm (0.1-0.6); Segmented Neutrophils 71 %
[2023-01-24 15:21] LABS: Absolute Neutrophil 8.2 10^3/cmm (1.4-6.5); Burr Cells 1+; Giant Platelets 1+; Platelet Estimate Increased (Normal)
--- NOTE | 2023-01-24 15:50 | PC.PHAR ---
pt and pts verified pts medications-
--- NOTE | 2023-01-24 16:03 | ECG_ITS ---
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 Measurements Intervals [place] Rate: 90 P: 98 [place]: 159 QRS: 13 QRSD: 94 T: 74 QT: 415 QTc: 508 Interpretive Statements SINUS RHYTHM WITH FREQUENT SUPRAVENTRICULAR PREMATURE COMPLEXES LOW QRS VOLTAGE IN EXTREMITY LEADS [QRS DEFLECTION < 0.5 mV IN LIMB LEADS] PROLONGED QT INTERVAL Compared to ECG 01/24/2023 14:00:59 Low QRS voltage now present Prolonged QT interval now present Electronically Signed On 01-24-2023 19:08:01 ORTHOPEDICS TEACHER by Myranda Mccartney M.D. [id number]
[2023-01-24 16:06] LABS: Reflex Lactate Order REFLEX LACTIC ORDERD
[2023-01-24 16:33] LABS: Troponin 5 2HR 71.37 ng/L (0-15); Troponin 5 2HR Delta -2.63 ABS# (0-10)
[2023-01-24 17:09] LABS: Glucose Urine UA Norm (Normal); Protein Urine Trace (Negative); Urine Appearance SL Hazy (CLEAR); Urine Color Yellow (Yellow); pH Urine 5 (5-7)
[2023-01-24 17:10] LABS: Add Urine Microscopic? YES; Bilirubin Urine 1+ (Negative); Blood Urine Neg (Negative); Ketones Urine Negative (Negative); Leukocyte Esterase Urine 1+ (Negative); Nitrate Urine Negative (Negative); Urobilinogen Urine Norm (Negative)
[2023-01-24 17:13] LABS: Add Urine Culture? No; Amorphous Sediment Urine 1+ /hpf; Bacteria Urine TRACE /hpf; Mucus Urine TRACE /hpf; RBC Urine 0-4 /hpf (0-2); Squamous Epithelial Cell Urine 0-4 /hpf (0-5); Transitional Epi Cells Urine 0-4 /hpf; WBC Urine 0-4 /hpf (0-5)
[2023-01-24 17:54] LABS: Lactic Acid level (Lactate) 1.4 mmol/L (0.5-2.2)
[2023-01-24] MEDS: lactated ringers 1,000 ML 999 ML IV (18:41)
--- NOTE | 2023-01-24 19:17 | P.HP_ITS ---
Providers/Chief Complaint Primary Care Provider: TAI Perez Chief Complaint: low bp History of Present Illness Matt Tran is a 77 year old male with RA, on leflunomide, sulfasalazine return to hospital due to unimproved diarrhea since last hospitalization during which was diagnosed with diverticulitis/colitis. During last hospital stay C. difficile, E. coli, Shigella, Campylobacter antigens negative. Was discharged with Levaquin, Flagyl which she has been taking. Today had a syncopal episode while trying get up to the commode, feeling unwell, EMS was called, found hypotensive, hypotensive in the ER. Received 2 L boluses so far with partial response in blood pressure. Patient and his are aware and understand that there is no subspecialty support available as discussed by ER physician and later myself as well as limited gastrointestinal laboratory evaluation. Would like to proceed with admission. He had a small amount of blood in his stool once. Has been dealing with a large excoriated area over the sacrum, buttocks, posterior/inner thighs. Did not take his metoprolol this morning as his blood pressure was low. He has continued taking leflunomide, sulfasalazine. LLE in cast after recent ankle repair. Review of Systems Const: Denies: fever(s), chills, body aches or malaise Card: Denies: chest pain, edema, pre-syncope or dyspnea on exertion Resp: Denies: dyspnea, productive cough, change in phlegm color or hemoptysis GI: Reports: abdominal pain and diarrhea; Denies: nausea, vomiting, constipation, hematochezia or melena : Denies: flank pain, difficulty urinating, urinary frequency or hematuria Musc: Denies: back pain, joint swelling or joint redness Skin/Breast: Reports: rash; Denies: new lesions Neuro: Denies: headache(s), numbness in extremities, weakness in extremities, dizziness, confusion or seizure-like activity Medications/Allergies Home Medications Medication Instructions Recorded Confirmed Last Taken Type duloxetine 30 mg capsule,delayed 30 mg PO QAM 07/12/19 01/24/23 01/24/23 08:00 History release sprinkle pravastatin 80 mg tablet 80 mg PO BEDTIME 07/12/19 01/24/23 01/23/23 History sodium bicarbonate 650 mg tablet 650 mg PO TID 07/12/19 01/24/23 01/24/23 08:00 History ropinirole 0.5 mg tablet 0.5 mg PO BEDTIME 06/17/21 01/24/23 01/23/23 History tramadol 50 mg tablet See Rx Instructions PO BID 07/05/22 01/24/23 01/24/23 08:00 History prednisone 10 mg tablet 10 mg PO DAILY PRN joint pain #90 12/06/22 01/24/23 01/13/23 Rx tabs AFO #2 ea 12/29/22 01/24/23 Unknown Rx bedside comode #1 ea 12/29/22 01/24/23 Unknown Rx wheel chair #1 ea 12/29/22 01/24/23 Unknown Rx aspirin 81 mg tablet,delayed 81 mg PO QAM 01/14/23 01/24/23 01/24/23 08:00 History release zinc oxide 30.6 % topical cream 1 applic topical TID skin 01/19/23 01/24/23 Unknown Rx irritation #92 grams cholestyramine (with sugar) 4 gram 4 g PO BID #10 ea 01/21/23 01/24/23 01/24/23 08:00 Rx powder for susp in a packet levofloxacin 750 mg tablet 750 mg PO EVERY OTHER DAY 8 days 01/21/23 01/24/23 01/24/23 08:00 Rx #4 tabs loperamide 2 mg capsule 2 mg PO QID PRN Diarrhea #30 caps 01/21/23 01/24/23 01/24/23 Rx metoprolol tartrate 25 mg tablet 12.5 mg PO BID #60 tabs 01/21/23 01/24/23 01/23/23 Rx metronidazole 500 mg tablet 500 mg PO TID #15 tabs 01/21/23 01/24/23 01/24/23 08:00 Rx allopurinol 100 mg tablet 200 mg PO QAM 01/24/23 01/24/23 01/24/23 08:00 History leflunomide 20 mg tablet 20 mg PO QAM 01/24/23 01/24/23 01/24/23 08:00 History levothyroxine 50 mcg tablet 50 mcg PO QAM 01/24/23 01/24/23 01/24/23 History omeprazole 20 mg tablet,delayed 20 mg PO BID 01/24/23 01/24/23 01/24/23 History release sulfasalazine 500 mg tablet 500 mg PO BID 01/24/23 01/24/23 01/24/23 08:00 History Allergies Allergy/AdvReac Type Severity Reaction Status Date / Time Penicillins Allergy Severe ALGY-Hives Verified 01/24/23 15:39 shellfish derived Allergy Severe ALGY-Hives Verified 01/24/23 15:39 esomeprazole [From Nexium] Allergy Intermediate ALGY-Hives Verified 01/24/23 15:39 empagliflozin Allergy Unknown Verified 01/24/23 15:39 [From Jardiance] Neoprene Allergy Severe ALGY-Hives Uncoded 01/14/23 09:19 PFSH Acute PFSH: Medical History Acute kidney injury superimposed on chronic kidney disease Allergic rhinosinusitis Anemia Asthma Atypical chest pain Calcium pyrophosphate deposition disease (CPPD) Carotid artery disease Cellulitis CKD (chronic kidney disease) Colon polyps Contusion of left foot, initial encounter Degenerative arthritis Dehydration Diarrhea Dislocation, ankle Fall risk care plan declined Gout Gout HTN (hypertension) Hyperlipidemia Hypersomnia Hyperuricemia Hypothyroidism Inflammatory arthritis Left foot pain Leukocytosis Neutrophilic leukocytosis Primary osteoarthritis of right hip Prostate cancer Pulmonary nodule seen on imaging study Recurrent syncope Renal failure Risk for falls Seizure-like activity Sepsis Seronegative rheumatoid arthritis of both hands Shortness of Breath Sprain of right shoulder Tendinopathy of right rotator cuff Type 2 diabetes mellitus Surgical History H/O hand surgery H/O prostatectomy (2016) Radical prostatectomy for prostate cancer History of left knee replacement History of left shoulder replacement History of right shoulder replacement (07/15/21) Right reverse total shoulder Hx of cataract surgery Hx of shoulder surgery (08/21/21) Closed reduction of right glenohumeral joint for dislocated right reverse total shoulder S/P total right hip arthroplasty Date of procedure: September 23, 2022 Diagnosis: Severe degenerative osteoarthritis of the right hip Procedure done: Right total hip arthroplasty Implants: The [employer] total hip system with a size 52 mm by E alpha code Trident II Tritanium acetabular shell with an MDM liner size 42 inner diameter by E alpha code. A size 6 Accolade II 127? neck angle hip stem with a size 28 mm x -2.7 mm Biolox delta ceramic femoral head and a restorationism MDM X3 insert size 42E Family History Father Heart disease CAD (coronary artery disease), Onset Age: 80 Other Cancer Denies family history of Diabetes Clotting disorder Dementia Hyperlipidemia Psychiatric illness Chronic kidney disease (CKD) Suicide Anesthesia complication Bleeding disorder Lung disease Hypertension Stroke Social History Smoking and tobacco/nicotine status: former use of tobacco/nicotine Quit status (tobacco/nicotine): has quit using Year quit tobacco: 2018 - 0.5 PPD x 15 Years Alcohol intake: current Alcohol intake frequency: 0-2 Drinks per Day Alcohol type: hard liquor Substance/Drug Use: never Lives independently: Yes Household members: spouse Marital status: service: No Current occupational status: retired Do you think of yourself as: Straight/Heterosexual Current gender identity: Male Vitals/I&O/Wt Last Vital Signs Temp 98.8 F 01/24/23 13:34 Pulse 92 01/24/23 17:42 Resp 17 01/24/23 17:42 BP 118/63 01/24/23 17:42 Pulse Ox 98 01/24/23 17:42 O2 Del Method Room Air 01/24/23 14:06 01/24/23 01/24/23 01/24/23 06:59 14:59 22:59 Intake Total 1999 Balance 1999 Weight last 48 hrs Weight 83.915 kg Physical Exam Narrative: Accompanied by his . Const: COMMON NORMALS: patient oriented x3 and alert GENERAL APPEARANCE: cooperative ORIENTATION/CONSCIOUSNESS: Yes awake HENMT: COMMON NORMALS: oropharynx normal Neck/C-Spine: COMMON NORMALS: no JVD Resp: COMMON NORMALS: normal respiratory effort and clear to auscultation bilaterally AUSCULTATION: clear to auscultation bilaterally Cardio: COMMON NORMALS: no JVD, regular rhythm, S1 normal heart sound present, S2 normal heart sound present and No murmurs present (Cardio) RHYTHM: regular rhythm HEART SOUNDS: S1 normal heart sound present and S2 normal heart sound present GI: COMMON NORMALS: Normal to inspection, nondistended, normoactive bowel sounds present and Soft to palpation PALPATION: Yes Soft to palpation OTHER: Mildly tender epigastric area. Extremity: COMMON NORMALS: no joint enlargement and no pedal edema OTHER: LLE in cast, toes warm, appear perfused. 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 Noted moderate troponin elevation, with likely cardiac hypoperfusion during shock. Denies chest pain or pressure. Less likely septic shock, does have some low-grade tachycardia over 90, no leukocytosis. Afebrile. High suspicion for hypovolemic shock secondary to persistent/nonresolving diarrhea. Received 2 L IV fluids in ER with partial response, additional liter of fluid has been ordered. Anticipate he should respond, but given some persist ence of shock for now is admitted to intensive care unit, may need further resuscitation. Albumin is low, will add albumin for now as well. Follow-up blood pressures. Follow-up CBC, chemistry. Repeat lactic acid has been reassessed, noted 1.4. Hold metoprolol. Monitor on telemetry. Chest x-ray reviewed, no acute abnormality on my interpretation. UA reviewed without suggestion of UTI, likely dehydration. Reviewed vitals, CBC, CMP, lactic acid, magnesium, NT proBNP, procalcitonin, UA, chest x-ray, ER documentation from I discussed with ER physician. (2) Colitis: Recently diagnosed with colitis, type unknown, suspected infectious colitis, was discharged with liquid, Flagyl which she has been taking, but without response and persistent diarrhea. Reviewed stool studies from prior admission, noted negative C. difficile, negative E. coli, Campylobacter, Shiga. Will request ova and parasites, Giardia, cryptococcal antigen. Discussed with him and his also regarding leflunomide ability to cause diarrhea. Hold leflunomide at this time. C. difficile has been sent out in ER, follow-up repeat C. difficile. For now continue prickly with ciprofloxacin and Flagyl by IV as he may not have been observed antibiotics due to persistent diarrhea. As he is having some upper abdominal tenderness will additionally assess CT abdomen pelvis. (3) LUCILLE (acute kidney injury): Suspect prerenal LUCILLE, with shock, hypovolemia. Received fluid resuscitation. Will assess CT abdomen pelvis, assess for any obstructive uropathy. Continue IVF infusion. Reassess renal function. At risk of electrolyte, acid- base abnormality. Reassess chemistry. (4) Lactic acidosis: Secondary to tissue hypoperfusion with shock as above. My assessment lactic acid noted with improvement. Plan Hypomagnesemia: Give magnesium. Recheck magnesium. Moisture injury/excoriation: Over sacrum, buttocks, posterior/inner thighs. Large area. Continue zinc oxide/moisture barrier. Seronegative rheumatoid arthritis: Hold leflunomide, sulfasalazine. Recent left ankle repair: Following dislocation. Cast in place. Following with podiatry. Gout DM2: Accu-Cheks requested, SSI Attestations Medical Necessity Statement*: Admission of over 2 midnights anticipated for assessment management of shock wi th endorgan injury including tissue hypoperfusion, LUCILLE, persistent diarrhea. Critical Care Time: The high probability of a clinically significant, sudden or life threatening deterioration of the patient's cardiovascular/hemodynamic, GI, renal system(s) required my full and direct attention, intervention and personal management. The critical care time is as shown. This time is in addition to time spent performing any reported procedures but includes the following: x Data and vital sign review and interpretation x Patient assessment, examination and intervention x Documentation x Medication orders and management Critical Care Time (min): 20 Diagnoses Shock R57.9 Colitis K52.9 LUCILLE (acute kidney injury) N17.9 Lactic acidosis E87.20
--- NOTE | 2023-01-24 19:31 | CTR_ITS ---
PROCEDURE INFORMATION: Exam: CT Abdomen And Pelvis Without Contrast Exam date and time: 01/24/2023 7:40 PM Age: 77 years old Clinical indication: Abdominal tenderness and other: Diarrhea; Prior surgery; Surgery date: 6+ months; Patient HX: Prostate CA; Additional info: Persistent diarrhea, shock, abdominal pain, abel TECHNIQUE: Imaging protocol: Computed tomography of the abdomen and pelvis without contrast. Radiation optimization: All CT scans at this facility use at least one of these dose optimization techniques: automated exposure control; mA and/or kV adjustment per patient size (includes targeted exams where dose is matched to clinical indication); or iterative reconstruction. REPORTING DATA: Count of CT and Cardiac NM exams in prior 12 months: This patient has received 4 known CTs and 0 known cardiac nuclear medicine studies in the 12 months prior to the current study. COMPARISON: CT abdomen pelvis con [id number] 01/19/2023 8:11 AM RADIATION DOSE METRICS: Total DLP (mGy-cm): 752.7 FINDINGS: Lungs: Bibasilar atelectasis. Left lower lobe calcified granuloma. Emphysematous changes. Liver: Hepatic steatosis. Gallbladder and bile ducts: Normal. No calcified stones. No ductal dilation. Pancreas: Normal. No ductal dilation. Spleen: Normal. No splenomegaly. Adrenal glands: Normal. No mass. Kidneys and ureters: Mild perinephric edema bilaterally suggestive of renal insufficiency, please correlate for pyelonephritis. Stomach and bowel: Prominent fluid in the small bowel and colon with some edema seen about the distal small bowel as well as the sigmoid colon suggestive of an enterocolitis. Diverticulosis without diverticulitis. Appendix: No evidence of appendicitis. Intraperitoneal space: Unremarkable. No free air. No significant fluid collection. Vasculature: Unremarkable. No abdominal aortic aneurysm. Lymph nodes: Unremarkable. No enlarged lymph nodes. Urinary bladder: Unremarkable as visualized. Reproductive: Unremarkable as visualized. Bones/joints: Right hip arthroplasty changes. Soft tissues: 4 cm collection of fluid in the right posterolateral pelvis overlying the hip suggestive of a seroma, similar to prior exam. CT/CT abdomen pelvis wo con [id number] IMPRESSION: 1. Prominent fluid in the small bowel and colon with some edema seen about the distal small bowel as well as the sigmoid colon suggestive of an enterocolitis. 2. Diverticulosis without diverticulitis. 3. Right hip arthroplasty changes. 4. Bibasilar atelectasis. 5. Left lower lobe calcified granuloma. 6. Emphysematous changes. 7. Hepatic steatosis. 8. 4 cm collection of fluid in the right posterolateral pelvis overlying the hip suggestive of a seroma, similar to prior exam. 9. Mild perinephric edema bilaterally suggestive of renal insufficiency, please correlate for pyelonephritis.
--- NOTE | 2023-01-24 19:54 | ECG_ITS ---
[facility] Test Date: 2023-01-24 Pat Name: Matt Tran Department: Room: Gender: Male Primary Teacher: : 1945 Requested By: Live Puga Order Number: [id number] Johnny MD: Edwin Webster M.D. Measurements Intervals [place] Rate: 86 P: 57 KS: 160 QRS: 12 QRSD: 103 T: 107 QT: 435 QTc: 522 Interpretive Statements SINUS RHYTHM LOW QRS VOLTAGE IN EXTREMITY LEADS [QRS DEFLECTION < 0.5 mV IN LIMB LEADS] QT prolongation present Compared to ECG 01/24/2023 16:03:05 No significant changes Electronically Signed On 01-25-2023 15:01:01 PRESS MAINTAINER by Edwin Webster M.D. [id number]
[2023-01-24] MEDS: metroNIDAZOLE IV 500 MG/100 ML PREMIX 100 MG IV (19:56)
[2023-01-24 20:36] LABS: Troponin 5 6HR 60.66 ng/L (0-15); Troponin 5 6HR Delta -13.34 ng/L (0-12)
[2023-01-24] MEDS: ciprofloxacin 400 MG/200 ML PREMIX 200 MG IV (20:55)
--- NOTE | 2023-01-24 22:12 | PC.NURSE ---
Report called to Gilma Ken RN on med-surg. All questions and concerns addressed at time of report.
[2023-01-25] VITALS (7 sets, daily range): BP systolic 93–113; BP diastolic 54–67; PULSE 87–97; RESP 15–20; TEMP 36.3–36.8; O2SAT 96–97
[2023-01-25] MEDS: magnesium sulfate premix 2 GM/50 ML PIGGYBACK IV ×2 (00:09→13:44)
[2023-01-25] MEDS: albumin 25 G/100 ML BAG 60 G IV ×4 (00:10→23:42)
[2023-01-25] MEDS: lactated ringers 1,000 ML 100 ML IV ×2 (00:10→11:15)
[2023-01-25] MEDS: metroNIDAZOLE IV 500 MG/100 ML PREMIX 100 MG IV ×3 (03:37→18:06)
[2023-01-25 05:37] LABS: Basophils % 0.5 %; Hematocrit 27.3 % (37-53); Lymphocytes # 1.1 10^3/uL (0.8-4.8); Lymphocytes % 15.3 %; Mean Corpuscular HGB Conc 31.9 g/dL (30-55); Mean Corpuscular Hemoglobin 28.1 pg (27-33); Mean Corpuscular Volume 88.1 fl (82-101); Mean Platelet Volume 11.1 fL (7.4-10.4); Monocytes # 0.7 10^3/uL (0.2-0.9); Monocytes % 10.1 %; Neutrophils # 5.03 10^3/uL (1.8-7.7); Neutrophils % 68.8 %; Nucleated Red Blood Cells % 0 %; Platelet Count 284 10^3/cmm (157-399); Red Cell Distribution Width 15.6 % (12.1-15.1); White Blood Count 7.32 10^3/uL (3.29-11.43)
[2023-01-25 06:00] LABS: Slide Review Slide Review Perform
[2023-01-25] MEDS: aspirin 81 mg EC Tablet PO (06:00)
[2023-01-25] MEDS: levothyroxine 50 mcg Tablet PO (06:00)
[2023-01-25] MEDS: duloxetine 30 mg Capsule PO (06:00)
[2023-01-25 06:32] LABS: Alanine Aminotransferase 11 U/L (0-41); Albumin Level 2.1 g/dL (3.5-5.2); Alkaline Phosphatase 282 U/L (40-130); Anion Gap 21.1 (5-19); Aspartate Amino Transferase 31 U/L (0-40); Blood Urea Nitrogen 53 mg/dL (8-23); Calcium 6.3 mg/dL (8.5-10.5); Carbon Dioxide 12 mmol/L (22-29); Chloride 106 mmol/L (98-107); Globulin 2.1 g/dL (1.3-4.6); Glucose 50 mg/dL (65-115); Osmolality Calculated 294 mOsm/kg (285-295); Potassium 3.1 mmol/L (3.5-5.1); Sodium 136 mmol/L (136-145); Total Bilirubin 0.5 mg/dL (0.15-1.2); Total Protein 4.2 g/dL (6.6-8.7)
[2023-01-25 06:46] LABS: Glucose Point of Care 51 mg/dL (70-110)
[2023-01-25 08:22] LABS: Magnesium 1.7 mg/dL (1.7-2.3)
[2023-01-25] MEDS: zinc oxide oint 30 gm 1 APPLIC TOPICAL ×3 (09:08→20:33)
[2023-01-25] MEDS: potassium chloride oral liq 20 mEq/15 mL UDC 40 MEQ PO (09:08)
[2023-01-25] MEDS: TRAMadol 50 mg Tablet PO ×2 (09:08→18:07)
--- NOTE | 2023-01-25 09:41 | PC.CHAP ---
Pastoral Care Encounter/Spiritual Assessment Type of Contact [] Declined shoveler visit [] Patient/Family/Request visit [] Outpatient visit [] Follow-up visit [] Physician referral [] Code/Alert [] Routine visit [] Staff referral [] Actively dying [x] Patient sleeping [] Family support [] [] Out of room [] Palliative care [] [] Receiving care in room [] Pre-surgical visit [] Trauma [] Long length of stay [] ICU visit [] Other: Relational/Emotional Strength [] Patient feels connected with others/family/visitors/staff [] Distress [] Loneliness/isolation [] Abandonment Spirituality of Patient [] Person of Juliet [] Attends Lutheran of their Juliet [] Believes in Prayer [] Reads Bible or Taoism materials [] There are Spiritual issues to be addressed Director Client Interventions [] Prayer [] Active listening [] Non-anxious presence [] Spiritual/emotional support [] Crisis/trauma care [] Spiritual counseling [] Bereavement support [] Provided bereavement packet [] Provided Bible/devotional materials [] Provided toy/stuffed animal, coloring book to patient or family member [] Provided Communion [] Anointing/[place] [] Salvation [] Completed spiritual assessment [] Other: Impact on Illness or Injury [] Angry [] Fearful [] Anxious [] Often cries [] Exhaustion [] Unable to work [] Unable to attend alevism [] Unable to walk/stand [] Unable to read [] Unable to drive [] Unable to eat/drink [] Unable to sleep [] Unable to be with family [] Patient intubated [] Other: Summary Time spent with patient
--- NOTE | 2023-01-25 11:59 | P.PN_ITS ---
Subjective Subjective: No additional syncopal or presyncopal episodes. Abdomen is somewhat tender, intermittently bothersome. Vitals/I&O/Wt Last Vital Signs Temp 98.0 F 01/25/23 07:41 Pulse 90 01/25/23 07:41 Resp 20 H 01/25/23 07:41 BP 112/64 01/25/23 07:41 Pulse Ox 97 01/25/23 07:41 O2 Del Method Room Air 01/25/23 07:41 01/24/23 01/25/23 01/25/23 22:59 06:59 14:59 Intake Total 3300 / 3300 250 / 3550 1503.333 / 1503.333 Balance 3300 / 3300 250 / 3550 1503.333 / 1503.333 Weight last 48 hrs Weight 88.479 kg Weight 86.319 kg Weight 83.915 kg Physical Exam Const: COMMON NORMALS: patient oriented x3 and alert GENERAL APPEARANCE: cooperative ORIENTATION/CONSCIOUSNESS: Yes awake HENMT: COMMON NORMALS: oropharynx normal Neck/C-Spine: COMMON NORMALS: no JVD Resp: COMMON NORMALS: normal respiratory effort and clear to auscultation bilaterally AUSCULTATION: clear to auscultation bilaterally Cardio: COMMON NORMALS: no JVD, regular rhythm, S1 normal heart sound present, S2 normal heart sound present and No murmurs present (Cardio) RHYTHM: regular rhythm HEART SOUNDS: S1 normal heart sound present and S2 normal heart sound present GI: COMMON NORMALS: Normal to inspection, nondistended, normoactive bowel sounds present and Soft to palpation PALPATION: Yes Soft to palpation OTHER: Tender epigastric area. Extremity: COMMON NORMALS: no joint enlargement and no pedal edema OTHER: LLE in cast, toes warm, appear perfused. Moving toes. Neuro: COMMON NORMALS: patient oriented x3 and moves all extremities SENSORIUM/ORIENTATION: Yes alert Skin: COMMON NORMALS: no rashes or lesions noted GENERAL SKIN EXAM: no rashes or lesions noted OTHER: Minimal mottling resolved Data 01/25/23 04:40 01/25/23 04:40 Micro: Microbiology 01/24/23 15:17 Blood Culture - Preliminary Blood SPECIMEN COLLECTED 01/24/23 15:14 Blood Culture - Preliminary Blood SPECIMEN COLLECTED A&P Assessment and plan (1) Colitis: Additional soft stool. No abdominal tenderness. Reviewed vitals, CBC, CMP, troponin series, CT abdomen pelvis. Discussed with him findings of prominent fluid, enterocolitis noted in distal small bowel and sigmoid colon. Continue empiric broad coverage with ciprofloxacin, Flagyl. C. difficile has been sent, reviewed so far pending. Additional stool collected, send out for Giardia, Cryptosporidium antigen. Additional stool will be needed for ova and parasites. Hold metoprolol. Monitor on telemetry. Discussed with case management. (2) Acute hypotension: Shock so far has resolved, blood pressures soft, continue albumin infusions. Recently diagnosed with colitis, type unknown, suspected infectious colitis, was discharged with liquid, Flagyl which she has been taking, but without response and persistent diarrhea. Reviewed stool studies from prior admission, noted negative C. difficile, negative E. coli, Campylobacter, Shiga. Will request ova and parasites, Giardia, cryptococcal antigen. Discussed with him and his also regarding leflunomide ability to cause diarrhea. Hold leflunomide at this time. C. difficile has been sent out in ER, follow-up repeat C. difficile. (3) Acute kidney injury superimposed on chronic kidney disease: LUCILLE showing improvement, BUN 50, creatinine down to 3.6. Shock so far has resolved. Monitor blood pressures. Albumin low, for today additional albumin infusions. Suspect prerenal LUCILLE, with shock, hypovolemia. Received fluid resuscitation. Will assess CT abdomen pelvis, assess for any obstructive uropathy. Continue IVF infusion. Reassess renal function. At risk of electrolyte, acid- base abnormality. Reassess chemistry. (4) Acute dehydration: Secondary to tissue hypoperfusion with shock as above. My assessment lactic acid noted with improvement. (5) Near syncope: In the setting of hypovolemic shock as above. Plan Hypomagnesemia: Give additional magnesium. Recheck magnesium. Moisture injury/excoriation: Over sacrum, buttocks, posterior/inner thighs. Large area. Continue zinc oxide/moisture barrier. Seronegative rheumatoid arthritis: Hold leflunomide, sulfasalazine. Recent left ankle repair: Following dislocation. Cast in place. Following with podiatry. Gout DM2: Accu-Cheks requested, SSI Attestations 2 Medical Necessity Statement*: Continue admission for assessment management of persistent enterocolitis complicated by acute kidney injury following hypovolemic shock. Diagnoses Colitis K52.9 Acute hypotension I95.9 Acute kidney injury superimposed on chronic kidney disease N17.9; N18.9 Acute dehydration E86.0 Near syncope R55
[2023-01-25 16:46] LABS: Glucose Point of Care 65 mg/dL (70-110)
[2023-01-25] MEDS: cetylpyridinium Lozenge 1 EACH MUCOUS MEM (18:06)
[2023-01-25] MEDS: ciprofloxacin 400 MG/200 ML PREMIX 200 MG IV (19:58)
[2023-01-25 20:19] LABS: Glucose Point of Care 88 mg/dL (70-110)
[2023-01-25] MEDS: ropinirole 0.25 mg Tablet 0.5 MG PO (20:32)
[2023-01-26] VITALS (7 sets, daily range): BP systolic 95–123; BP diastolic 52–70; PULSE 82–96; RESP 15–18; TEMP 36.4–36.9; O2SAT 95–97
[2023-01-26] MEDS: metroNIDAZOLE IV 500 MG/100 ML PREMIX 100 MG IV ×3 (04:04→19:46)
[2023-01-26 05:35] LABS: Basophils % 0.4 %; Lymphocytes % 11.7 %; Mean Corpuscular HGB Conc 32.3 g/dL (30-55); Mean Corpuscular Hemoglobin 28.4 pg (27-33); Mean Corpuscular Volume 87.8 fl (82-101); Mean Platelet Volume 10.8 fL (7.4-10.4); Monocytes # 0.7 10^3/uL (0.2-0.9); Monocytes % 7.8 %; Neutrophils # 6.58 10^3/uL (1.8-7.7); Neutrophils % 77.7 %; Nucleated Red Blood Cells % 0 %; Platelet Count 242 10^3/cmm (157-399); Red Blood Count 2.96 10^6/uL (3.85-5.65); Red Cell Distribution Width 15.7 % (12.1-15.1); White Blood Count 8.46 10^3/uL (3.29-11.43)
[2023-01-26] MEDS: duloxetine 30 mg Capsule PO (05:45)
[2023-01-26] MEDS: levothyroxine 50 mcg Tablet PO (05:45)
[2023-01-26] MEDS: aspirin 81 mg EC Tablet PO (05:45)
[2023-01-26 06:03] LABS: Anion Gap 20.2 (5-19); Blood Urea Nitrogen 39 mg/dL (8-23); Calcium 6.9 mg/dL (8.5-10.5); Carbon Dioxide 12 mmol/L (22-29); Chloride 105 mmol/L (98-107); Glucose 67 mg/dL (65-115); Magnesium 1.8 mg/dL (1.7-2.3); Osmolality Calculated 286 mOsm/kg (285-295); Potassium 3.2 mmol/L (3.5-5.1); Sodium 134 mmol/L (136-145)
[2023-01-26] MEDS: albumin 25 G/100 ML BAG 60 G IV ×3 (06:05→23:32)
[2023-01-26 06:37] LABS: Glucose Point of Care 64 mg/dL (70-110)
[2023-01-26] MEDS: zinc oxide oint 30 gm 1 APPLIC TOPICAL ×3 (10:01→20:52)
[2023-01-26] MEDS: magnesium sulfate premix 2 GM/50 ML PIGGYBACK IV (10:42)
[2023-01-26 11:03] LABS: Glucose Point of Care 122 mg/dL (70-110)
--- NOTE | 2023-01-26 11:12 | PC.CHAP ---
Pastoral Care Encounter/Spiritual Assessment Type of Contact [] Declined cutting machine tender decorative visit [] Patient/Family/Request visit [] Outpatient visit [] Follow-up visit [] Physician referral [] Code/Alert [x] Routine visit [] Staff referral [] Actively dying [] Patient sleeping [] Family support [] [] Out of room [] Palliative care [] [] Receiving care in room [] Pre-surgical visit [] Trauma [] Long length of stay [] ICU visit [] Other: Relational/Emotional Strength [] Patient feels connected with others/family/visitors/staff [] Distress [] Loneliness/isolation [] Abandonment Spirituality of Patient [] Person of Juliet [] Attends Scientologist of their [place] [] Believes in Prayer [] Reads Bible or Judaism materials [] There are Spiritual issues to be addressed 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 Interventions [x] Prayer [x] Active listening [] Non-anxious presence [] Spiritual/emotional support [] Crisis/trauma care [] Spiritual counseling [] Bereavement support [] Provided bereavement packet [] Provided Bible/devotional materials [] Provided toy/stuffed animal, coloring book to patient or family member [] Provided Communion [] Anointing/[place] [] Salvation [] Completed spiritual assessment [] Other: Impact on Illness or Injury [] Angry [] Fearful [] Anxious [] Often cries [] Exhaustion [] Unable to work [] Unable to attend orthodoxy [] Unable to walk/stand [] Unable to read [] Unable to drive [] Unable to eat/drink [] Unable to sleep [] Unable to be with family [] Patient intubated [] Other: Summary Time spent with patient 10 min
[2023-01-26 11:50] LABS: Glucose Point of Care 81 mg/dL (70-110)
--- NOTE | 2023-01-26 11:54 | PM.PN ---
Subjective Subjective: Still some on and off abdominal cramping and pain. Loose stool. Later in the day reporting also worsening odynophagia, some cracking pain and mild swelling of the tongue. Vitals/I&O/Wt Last Vital Signs Temp 98.1 F 01/26/23 08:00 Pulse 93 01/26/23 08:00 Resp 18 01/26/23 08:00 BP 107/67 01/26/23 08:00 Pulse Ox 96 01/26/23 08:00 O2 Del Method Room Air 01/25/23 15:41 01/25/23 01/26/23 01/26/23 22:59 06:59 14:59 Intake Total 1085 / 3168.333 705 / 3873.333 100 / 100 Balance 1085 / 3168.333 705 / 3873.333 100 / 100 Weight last 48 hrs Weight 88.451 kg Weight 88.451 kg Weight 88.479 kg Weight 86.319 kg Weight 83.915 kg Physical Exam Narrative: Accompanied by his . Const: COMMON NORMALS: patient oriented x3 and alert GENERAL APPEARANCE: cooperative ORIENTATION/CONSCIOUSNESS: Yes awake HENMT: COMMON NORMALS: oropharynx normal Neck/C-Spine: COMMON NORMALS: no JVD Resp: COMMON NORMALS: normal respiratory effort and clear to auscultation bilaterally AUSCULTATION: clear to auscultation bilaterally Cardio: COMMON NORMALS: no JVD, regular rhythm, S1 normal heart sound present, S2 normal heart sound present and No murmurs present (Cardio) RHYTHM: regular rhythm HEART SOUNDS: S1 normal heart sound present and S2 normal heart sound present GI: COMMON NORMALS: Normal to inspection, nondistended, normoactive bowel sounds present and Soft to palpation PALPATION: Yes Soft to palpation OTHER: Tender epigastric area. Extremity: COMMON NORMALS: no joint enlargement and no pedal edema OTHER: LLE in cast, toes warm, appear perfused. Moving toes. Neuro: COMMON NORMALS: patient oriented x3 and moves all extremities SENSORIUM/ORIENTATION: Yes alert Skin: COMMON NORMALS: no rashes or lesions noted GENERAL SKIN EXAM: no rashes or lesions noted OTHER: Minimal mottling resolved Data 01/26/23 05:09 01/26/23 05:09 Micro: Microbiology 01/24/23 15:17 Blood Culture - Preliminary Blood NEGATIVE TO DATE 01/24/23 15:14 Blood Culture - Preliminary Blood NEGATIVE TO DATE A&P Assessment and plan (1) Colitis: Persistent symptoms. Persistence of stools. No blood. Continue IV antibiotics. Follow-up stool studies which are pending. Reviewed vitals, CBC, BMP, magnesium. Replace potassium, magnesium. Follow-up levels. Stop IV fluid. Continue empiric broad coverage with ciprofloxacin, Flagyl. C. difficile has been sent, reviewed so far pending. Additional stool collected, send out for Giardia, Cryptosporidium antigen. Additional stool collected and sent for ova and parasites. Hold metoprolol. Monitor on telemetry. Discussed with mattress spring encaser. Hold leflunomide. Leflunomide can also cause/contribute to diarrhea. (2) Acute hypotension: Shock so far has resolved. Blood pressure with improvement although soft. Stop IV fluid. Continue albumin for now. Reviewed chemistry, noted gradually improving renal function. (3) Acute kidney injury superimposed on chronic kidney disease: Noted gradually improving renal function. Reviewed BUN, creatinine, trending down to 2.9. Stop IVF. Additional albumin infusions for now. Reassess renal function. Suspect prerenal LUCILLE, with shock, hypovolemia. Received fluid resuscitation. Reviewed CT abdomen pelvis, no obstructive uropathy noted. Continue IVF infusion. Reassess renal function. At risk of electrolyte, acid-base abnormality. Reassess chemistry. (4) Acute dehydration: Secondary to tissue hypoperfusion with shock as above. My assessment lactic acid noted with improvement. (5) Near syncope: In the setting of hypovolemic shock as above. Plan Hypomagnesemia: Give magnesium supplementation. Recheck magnesium. Hypokalemia: Supplement potassium, support magnesium. Recheck chemistry. Moisture injury/excoriation: Family requesting Shipman catheter due to open wound. Over sacrum, buttocks, posterior/inner thighs. Large area. Continue zinc oxide/moisture barrier. Seronegative rheumatoid arthritis: Hold leflunomide, sulfasalazine. Recent left ankle repair: Following dislocation. Cast in place. Following with podiatry. Gout DM2: Accu-Cheks requested, SSI Attestations Medical Necessity Statement*: Continue admission for assessment management of ongoing symptomatic enterocolitis complicated by hypovolemic shock, LUCILLE. Diagnoses Colitis K52.9 Acute hypotension I95.9 Acute kidney injury superimposed on chronic kidney disease N17.9; N18.9 Acute dehydration E86.0 Near syncope R55
--- NOTE | 2023-01-26 11:59 | PC.SOCIAL ---
Pg 2 IMM Explained to pt & his , Pg 2 IMM. No questions voiced. Provided pt a copy. Initialed, dated, & timed a copy & placed in chart.
[2023-01-26] MEDS: potassium chloride oral liq 20 mEq/15 mL UDC 40 MEQ PO (13:29)
[2023-01-26] MEDS: nystatin 100,000 unit/mL UDC 5 mL 400000 UNIT PO ×3 (13:31→20:52)
[2023-01-26 14:49] LABS: Clostridium Difficile PCR NOT DETECTED (NOT DETECTED)
[2023-01-26 17:32] LABS: Glucose Point of Care 131 mg/dL (70-110)
[2023-01-26] MEDS: ciprofloxacin 400 MG/200 ML PREMIX 200 MG IV (20:51)
[2023-01-26] MEDS: ropinirole 0.25 mg Tablet 0.5 MG PO (20:52)
[2023-01-26 20:57] LABS: Glucose Point of Care 84 mg/dL (70-110)
[2023-01-27] VITALS (7 sets, daily range): BP systolic 114–135; BP diastolic 60–74; PULSE 80–109; RESP 17–20; TEMP 36.4–37; O2SAT 95–98
[2023-01-27] MEDS: metroNIDAZOLE IV 500 MG/100 ML PREMIX 100 MG IV ×3 (04:23→19:58)
[2023-01-27 05:24] LABS: Basophils % 0.4 %; Lymphocytes # 1.4 10^3/uL (0.8-4.8); Lymphocytes % 13.6 %; Mean Corpuscular HGB Conc 31.9 g/dL (30-55); Mean Corpuscular Hemoglobin 28.4 pg (27-33); Mean Corpuscular Volume 89.1 fl (82-101); Mean Platelet Volume 10.7 fL (7.4-10.4); Monocytes # 0.8 10^3/uL (0.2-0.9); Monocytes % 7.8 %; Neutrophils # 7.71 10^3/uL (1.8-7.7); Neutrophils % 75.7 %; Nucleated Red Blood Cells % 0 %; Platelet Count 234 10^3/cmm (157-399); Red Blood Count 3.03 10^6/uL (3.85-5.65); Red Cell Distribution Width 15.9 % (12.1-15.1); White Blood Count 10.17 10^3/uL (3.29-11.43)
[2023-01-27 05:38] LABS: Anion Gap 18.4 (5-19); Blood Urea Nitrogen 33 mg/dL (8-23); Calcium 7.7 mg/dL (8.5-10.5); Carbon Dioxide 13 mmol/L (22-29); Chloride 110 mmol/L (98-107); Glucose 79 mg/dL (65-115); Osmolality Calculated 292 mOsm/kg (285-295); Potassium 3.4 mmol/L (3.5-5.1); Sodium 138 mmol/L (136-145)
[2023-01-27] MEDS: levothyroxine 50 mcg Tablet PO (06:12)
[2023-01-27] MEDS: aspirin 81 mg EC Tablet PO (06:12)
[2023-01-27] MEDS: duloxetine 30 mg Capsule PO (06:12)
[2023-01-27] MEDS: albumin 25 G/100 ML BAG 60 G IV ×3 (06:20→23:38)
--- NOTE | 2023-01-27 07:07 | PC.NURSE ---
This nurse was called to bedside by the [employer] CONSULTANT to observe something suspicious in the patient stool. The substance was pink in color, soft, formed, and in two separate pieces. This nurse sent a picture to the overnight hospitalist, and he offered a rectal tube. The patient and refused. Then, the dayshift hospitalist was sent a picture, and he ordered it be sent for pathology. This nurse contacted lab to determine how to order appropriately, but was unable to figure this out. She is contacting the metal technician to see what needs to be done to order the proper testing. Dr. Loya called and notified of this. Specimen sent to lab for proper storage as well.
[2023-01-27 07:30] LABS: Glucose Point of Care 88 mg/dL (70-110)
[2023-01-27] MEDS: potassium chloride oral liq 20 mEq/15 mL UDC 40 MEQ PO (08:45)
[2023-01-27] MEDS: zinc oxide oint 30 gm 1 APPLIC TOPICAL ×2 (08:46→16:07)
[2023-01-27] MEDS: nystatin 100,000 unit/mL UDC 5 mL 400000 UNIT PO ×4 (09:51→21:26)
--- NOTE | 2023-01-27 10:49 | P.PN_ITS ---
Subjective Subjective: He is having some cramping in the lower abdomen. Would like to try some oatmeal. Appetite has not been very good. His noticed some repetitive movements with his eyes, lipsmacking, brief repetitive movements with his hand, brief inattention this morning. No past history of seizure. Given his medication may be contributing, with stopping antibiotic Zosyn may provide at least partial alternative. He reports that he has history of penicillin allergy probably about 7 years ago when he broke out in a rash. He would be willing to try penicillin here with supervision, understands the risk of allergic reaction, willing to try it while monitored in the hospital setting. Vitals/I&O/Wt Last Vital Signs Temp 98.5 F 01/27/23 09:03 Pulse 102 H 01/27/23 09:03 Resp 20 H 01/27/23 09:03 BP 133/74 01/27/23 09:03 Pulse Ox 96 01/27/23 09:03 O2 Del Method Room Air 01/27/23 09:03 01/26/23 01/27/23 01/27/23 22:59 06:59 14:59 Intake Total 1100 / 1490 680 / 2170 220 / 220 Output Total 500 / 500 Balance 1100 / 1490 180 / 1670 220 / 220 Weight last 48 hrs Weight 88.451 kg Weight 88.451 kg Weight 88.451 kg Physical Exam Narrative: Accompanied by his . Const: COMMON NORMALS: patient oriented x3 and alert GENERAL APPEARANCE: cooperative ORIENTATION/CONSCIOUSNESS: Yes awake HENMT: COMMON NORMALS: oropharynx normal Neck/C-Spine: COMMON NORMALS: no JVD Resp: COMMON NORMALS: normal respiratory effort and clear to auscultation bilaterally AUSCULTATION: clear to auscultation bilaterally Cardio: COMMON NORMALS: no JVD, regular rhythm, S1 normal heart sound present, S2 normal heart sound present and No murmurs present (Cardio) RHYTHM: regular rhythm HEART SOUNDS: S1 normal heart sound present and S2 normal heart sound present GI: COMMON NORMALS: Normal to inspection, nondistended, normoactive bowel sounds present and Soft to palpation PALPATION: Yes Soft to palpation OTHER: Tender lower abdomen. Extremity: COMMON NORMALS: no joint enlargement and no pedal edema OTHER: LLE in cast, toes warm, appear perfused. Moving toes. Neuro: COMMON NORMALS: patient oriented x3 and moves all extremities SENSORIUM/ORIENTATION: Yes alert Skin: COMMON NORMALS: no rashes or lesions noted GENERAL SKIN EXAM: no rashes or lesions noted Urinary Catheter Management: Shipman: Cath Placed During This Visit: yes Reason for Continuing Indwelling Catheter: Other Urinary Catheter Date of Insertion: 01/26/23 Urinary Catheter Time of Insertion: 18:00 Data 01/27/23 04:37 01/27/23 04:37 A&P Assessment and plan (1) Colitis: Reviewed vital signs, CBC, he remains afebrile, no leukocytosis. Has persistent lower abdominal discomfort. Liquid stools with green color, also today found to have some tissue in his stool, no blood or melena. Abdomen is soft. With stool/sloughed mucosa sent to the pathology for assessment to see if any parasite or abnormal tissue can be visualized. Check with the lab ova and parasites sample still pending, Giardia, Cryptosporidium antigen is pending. Repeat C. difficile reviewed, returned negative. Additionally his noted some episodes of inattention, gaze deviation, lipsmacking, slow repetitive hand movements, of which she took some videos, brief complex partial seizures cannot be excluded as discussed with them. No GTC, no postictal period. Requesting MRI assessment, noncontrast study due to renal dysfunction. Additionally reviewing his medications. Tramadol, but rare seizures also reported with Cipro, Flagyl. Will stop Cipro as well. He is willing to have a trial of Zosyn with monitoring with reported childhood allergic reaction with a rash to penicillin. Flagyl in her case this can cause seizures as well, may have to be stopped also, however, hopefully this may be one of the other medicines or another cause as in case of intestinal parasitic infection Zosyn may not provide adequate coverage. Reviewed chemistry, hypokalemia, replace. Reviewed magnesium, normal. Will benefit from follow-up with colonoscopy for further assessment to exclude malignancy or other cause. Lower likelihood of ischemic bowel disease, continue to monitor and support blood pressure. Some tenderness in the lower abdomen, otherwise abdomen without rigidity. This has been doing better. Low threshold for additional imaging assessment. Hold leflunomide. Leflunomide can also cause/contribute to diarrhea. (2) Acute hypotension: Shock so far has resolved. Blood pressure with improvement although soft. Continue albumin for now. Reviewed chemistry, noted gradually improving renal function. (3) Acute kidney injury superimposed on chronic kidney disease: Renal function reviewed, BUN, creatinine 33, 2.5 respectively, continues to gradually improve. Continue albumin infusions for now. Off IV fluid. Continue to monitor and support blood pressures. Suspect prerenal LUCILLE, with shock, hypovolemia. Received fluid resuscitation. Reviewed CT abdomen pelvis, no obstructive uropathy noted. Continue IVF infusion. Reassess renal function. At risk of electrolyte, acid- base abnormality. Reassess chemistry. (4) Acute dehydration: Secondary to tissue hypoperfusion with shock as above. My assessment lactic acid noted with improvement. (5) Near syncope: In the setting of hypovolemic shock as above. Plan Hypomagnesemia: Give magnesium supplementation. Recheck magnesium. Hypokalemia: Supplement potassium, support magnesium. Recheck chemistry. Moisture injury/excoriation: Family requesting Shipman catheter due to open wound. Over sacrum, buttocks, posterior/inner thighs. Large area. Continue zinc oxide/moisture barrier. Oropharyngeal candidiasis: Nystatin swish and swallow. Seronegative rheumatoid arthritis: Hold leflunomide, sulfasalazine. Recent left ankle repair: Following dislocation. Cast in place. Following with podiatry. Gout DM2: Accu-Cheks requested, SSI Attestations Medical Necessity Statement*: Continue admission for assessment management of seizure-like activity, ongoing symptomatic enterocolitis complicated by hypovolemic shock, LUCILLE. and High MDM includes number and complexity of problems actively addressed during encounter and described risk of complication, morbidity or mortality of management as documented Diagnoses Colitis K52.9 Acute hypotension I95.9 Acute kidney injury superimposed on chronic kidney disease N17.9; N18.9 Acute dehydration E86.0 Near syncope R55
[2023-01-27 11:43] LABS: Glucose Point of Care 93 mg/dL (70-110)
[2023-01-27] MEDS: piperacillin-tazobactam 3.375 GM in sodium chloride 0.9% (plus) 50 ML IV ×2 (13:49→21:26)
[2023-01-27 17:12] LABS: Glucose Point of Care 113 mg/dL (70-110)
[2023-01-27 20:32] LABS: Glucose Point of Care 95 mg/dL (70-110)
[2023-01-27] MEDS: ropinirole 0.25 mg Tablet 0.5 MG PO (21:26)
[2023-01-28] VITALS (8 sets, daily range): BP systolic 97–153; BP diastolic 56–84; PULSE 87–115; RESP 16–20; TEMP 36.4–37; O2SAT 95–97; BMI 30.5
[2023-01-28] MEDS: metroNIDAZOLE IV 500 MG/100 ML PREMIX 100 MG IV ×3 (04:13→19:56)
--- NOTE | 2023-01-28 04:24 | CTR_ITS ---
PROCEDURE INFORMATION: Exam: CT Abdomen And Pelvis Without Contrast Exam date and time: 01/28/2023 5:08 AM Age: 77 years old Clinical indication: Abdominal pain; Generalized; Prior surgery; Surgery date: 1-6 months; Surgery type: [facility] September 2022. Prostate; Patient HX: Worsening diffuse abd pain with distention. Suspected colitis/diverticulitis and RT hip seroma noted on CT 01/24/2023. History of prostate cancer. ; Additional info: Increased abdominal pain TECHNIQUE: Imaging protocol: Computed tomography of the abdomen and pelvis without contrast. Radiation optimization: All CT scans at this facility use at least one of these dose optimization techniques: automated exposure control; mA and/or kV adjustment per patient size (includes targeted exams where dose is matched to clinical indication); or iterative reconstruction. REPORTING DATA: Count of CT and Cardiac NM exams in prior 12 months: This patient has received 5 known CTs and 0 known cardiac nuclear medicine studies in the 12 months prior to the current study. COMPARISON: CT abdomen pelvis wo con [id number] 01/24/2023 7:40 PM RADIATION DOSE METRICS: Total DLP (mGy-cm): 760.32 FINDINGS: Pleural spaces: Small bilateral pleural effusions. Liver: Normal. No mass. Gallbladder and bile ducts: Normal. No calcified stones. No ductal dilation. Pancreas: Normal. No ductal dilation. Spleen: Normal. No splenomegaly. Adrenal glands: Normal. No mass. Kidneys and ureters: Normal. No hydronephrosis. Stomach and bowel: Moderately dilated small bowel loops containing gas fluid levels indicate small bowel obstruction. The transition zone is not visible. Appendix: No evidence of appendicitis. Intraperitoneal space: There is a small amount of free intra-abdominal fluid. There was minimal fluid rather than inflammation which was causing the mild left pericolonic stranding described on the prior study there Vasculature: Unremarkable. No abdominal aortic aneurysm. Lymph nodes: Unremarkable. No enlarged lymph nodes. Urinary bladder: Unremarkable as visualized. Reproductive: Unremarkable as visualized. Bones/joints: Unremarkable. No acute fracture. Soft tissues: Unremarkable. CT/CT abdomen pelvis wo con [id number] IMPRESSION: 1. Small bowel obstruction. 2. Small bilateral pleural effusions and minimal ascites. 3. The findings are new since 01/24/2022.
--- NOTE | 2023-01-28 04:41 | PC.NURSE ---
When this nurse entered the patient room to administer a scheduled medication, he reported a significant increase in his abdominla pain. Abd was palpated, found to be tender to touch and firm. Hospitalist called and informed of this change and gave a telephone order for a CT abdomen/pelvis. Orders placed. While putting orders in, a family approached the room. Upon their departure, this nurse asked what warranted the visit, the family member reported that the patient called his grand daughter stating he was stuck in a hile in his truck behind her house and that their child was in his pills eating them. He couldn't get to the child because he was trapped in the hole. This was also passed to the hospitalist.
[2023-01-28 05:03] LABS: Basophils # 0.1 10^3/uL (0.0-0.1); Basophils % 0.4 %; Hematocrit 32.2 % (37-53); Lymphocytes # 1.7 10^3/uL (0.8-4.8); Lymphocytes % 10.9 %; Mean Corpuscular Hemoglobin 28.4 pg (27-33); Mean Corpuscular Volume 88.7 fl (82-101); Mean Platelet Volume 10.4 fL (7.4-10.4); Monocytes # 1.4 10^3/uL (0.2-0.9); Monocytes % 8.6 %; Neutrophils # 12.38 10^3/uL (1.8-7.7); Neutrophils % 78.6 %; Nucleated Red Blood Cells % 0 %; Platelet Count 293 10^3/cmm (157-399); Red Blood Count 3.63 10^6/uL (3.85-5.65); Red Cell Distribution Width 16.2 % (12.1-15.1); White Blood Count 15.76 10^3/uL (3.29-11.43)
[2023-01-28 05:35] LABS: Anion Gap 23.7 (5-19); Blood Urea Nitrogen 33 mg/dL (8-23); Calcium 8.2 mg/dL (8.5-10.5); Carbon Dioxide 12 mmol/L (22-29); Chloride 108 mmol/L (98-107); Glucose 149 mg/dL (65-115); Osmolality Calculated 300 mOsm/kg (285-295); Potassium 3.7 mmol/L (3.5-5.1); Sodium 140 mmol/L (136-145)
[2023-01-28] MEDS: albumin 25 G/100 ML BAG 60 G IV ×3 (05:59→23:22)
[2023-01-28] MEDS: piperacillin-tazobactam 3.375 GM in sodium chloride 0.9% (plus) 50 ML IV ×3 (06:08→21:48)
[2023-01-28] MEDS: levothyroxine 50 mcg Tablet PO (06:09)
[2023-01-28] MEDS: aspirin 81 mg EC Tablet PO (06:09)
[2023-01-28] MEDS: duloxetine 30 mg Capsule PO (06:09)
--- NOTE | 2023-01-28 06:49 | PC.NURSE ---
the patients came to the nurses station to report the patient is hallucinating again and reporting things that are not there.
[2023-01-28 07:45] LABS: Glucose Point of Care 136 mg/dL (70-110)
--- NOTE | 2023-01-28 08:48 | XRR_ITS ---
PROCEDURE INFORMATION: Exam: XR Chest Exam date and time: 01/28/2023 9:55 AM Age: 77 years old Clinical indication: Device placement; Ng tube; Additional info: Ng placement TECHNIQUE: Imaging protocol: Radiologic exam of the chest. Views: 1 view. COMPARISON: CR (CHEST, ) 01/24/2023 2:05 PM FINDINGS: Tubes, catheters and devices: Enteric tube terminates over the area of the stomach. Lungs: Low lung volumes. No focal consolidation. Pleural spaces: No large pleural effusion. No significant pneumothorax. Heart/Mediastinum: Cardiomediastinal silhouette is midline and normal in size. Vasculature: Mild calcification of the aortic knob. Bones/joints: Osseous structures are unchanged, including bilateral shoulder arthroplasty. XR/XR chest 1V portable [id number] IMPRESSION: 1. Enteric tube terminates over the area of the stomach. 2. Allowing for low lung volumes, no acute cardiopulmonary findings.
--- NOTE | 2023-01-28 10:01 | CTR_ITS ---
PROCEDURE INFORMATION: Exam: CTA Chest With Contrast CTA Abdomen and Pelvis With Contrast Exam date and time: 01/28/2023 2:11 PM Age: 77 years old Clinical indication: Dyspnea; Hypotension; Additional info: Assess for any bowel ischemia or abscess TECHNIQUE: Imaging protocol: Computed tomographic angiography of the chest with contrast. Exam focused on the arteries. Computed tomographic angiography of the abdomen and pelvis with contrast. Exam focused on the arteries. 3D rendering (Not supervised by radiologist): MIP and/or 3D reconstructed images were created by the technologist. Radiation optimization: All CT scans at this facility use at least one of these dose optimization techniques: automated exposure control; mA and/or kV adjustment per patient size (includes targeted exams where dose is matched to clinical indication); or iterative reconstruction. Contrast material: [id number]; Contrast volume: 100 ml; Contrast route: INTRAVENOUS (IV); REPORTING DATA: Count of CT and Cardiac NM exams in prior 12 months: This patient has received 5 known CTs and 0 known cardiac nuclear medicine studies in the 12 months prior to the current study. COMPARISON: CT abdomen pelvis wo con [id number] 01/28/2023 5:08 AM RADIATION DOSE METRICS: Total DLP (mGy-cm): 747.48 FINDINGS: Tubes, catheters and devices: NG tube terminates in the stomach. VASCULATURE: Pulmonary arteries: Normal. No pulmonary emboli. Aorta: The visceral branches of the aorta are widely patent. No evidence of stenosis or occlusion. Celiac trunk and mesenteric arteries: No occlusion or significant stenosis. Renal arteries: No occlusion or significant stenosis. Right iliac arteries: No occlusion or significant stenosis. Left iliac arteries: No occlusion or significant stenosis. CHEST: Lungs: Unremarkable. No consolidation. No masses. Pleural spaces: Small bilateral pleural effusions. Heart: Unremarkable. No cardiomegaly. No pericardial effusion. ABDOMEN AND PELVIS: Liver: No mass. Gallbladder and bile ducts: Unremarkable. No calcified stones. No ductal dilation. Pancreas: Unremarkable. No mass. No ductal dilation. Spleen: Unremarkable. No splenomegaly. Adrenal glands: Unremarkable. No mass. Kidneys and ureters: Unremarkable. No solid mass. No hydronephrosis. Stomach and bowel: Minimally diminished dilatation of small bowel loops, they remain mildly dilated. Appendix: No evidence of appendicitis. Intraperitoneal space: There is a small amount of free intra-abdominal fluid. Urinary bladder: Urinary bladder is collapsed around a Shipman catheter. Reproductive: Unremarkable as visualized. Lymph nodes: Unremarkable. No enlarged lymph nodes. Bones/joints: Right hip replacement. Soft tissues: Fluid collection in the upper lateral thigh was present previously and is likely a postsurgical seroma. Other findings: There is no evidence of wall thickening. CT/CT angio abdomen pelvis [id number] IMPRESSION: 1. No vascular abnormality. 2. Numerous additional findings, stable since earlier today.
[2023-01-28] MEDS: nystatin 100,000 unit/mL UDC 5 mL 400000 UNIT PO ×4 (10:15→21:48)
[2023-01-28] MEDS: zinc oxide oint 30 gm 1 APPLIC TOPICAL ×3 (10:20→21:48)
[2023-01-28] MEDS: lactated ringers 1,000 ML 100 ML IV ×2 (10:20→19:57)
--- NOTE | 2023-01-28 11:43 | PC.SOCIAL ---
IMM Updated Updated pt & on IMM. No questions voiced. Provided pt a copy. Initialed dated & timed copy in chart.
[2023-01-28 11:51] LABS: Glucose Point of Care 118 mg/dL (70-110)
[2023-01-28] MEDS: diphenhydrAMINE 50 mg/mL SDV 1mL 25 MG IVP (13:52)
[2023-01-28] MEDS: iohexol 350 mg/mL 500 mL Btl (per mL) IV (14:38)
[2023-01-28 16:59] LABS: Glucose Point of Care 95 mg/dL (70-110)
--- NOTE | 2023-01-28 19:17 | PM.TDS ---
Transfer Summary Providers Date of Admission: 01/24/23 21:54 Date of Discharge/Transfer: 01/28/23 Attending Provider at Admission: Dashawn Loya Attending Provider at Transfer: Dashawn Loya Primary Care Provider: TAI Perez Transfer Plans: Anticipated date of transfer: 01/28/23. Diagnoses at Discharge Discharge Diagnosis (1) Colitis: Status: Acute (2) Acute hypotension: Status: Acute (3) Acute kidney injury superimposed on chronic kidney disease: Status: Inactive (4) Acute dehydration: Status: Acute (5) Near syncope: Status: Acute Reason for Visit Reason for Visit low bp Hospital Course Hospital Course Pleasant 77-year-old gentleman with history of rheumatoid arthritis on leflunomide, sulfasalazine, chronic kidney disease, prostate cancer, prostatectomy, anemia, asthma, COPD, carotid artery disease, colonic polyps, gout, HTN, HLD, hypothyroidism, pulmonary nodule, DM2, other medical problems, recently also with left ankle fracture underwent repair on 01/07, cast in place, following with podiatry, return to the hospital after hospitalization initially between 01/14 due to presyncopal/syncopal episode possible seizure-like activity, hypotensive, with sepsis on presentation, mottling of skin, diarrhea, abdominal discomfort, CT abdomen pelvis with findings of colitis, was treated with ceftriaxone, Flagyl, leflunomide and sulfasalazine were held, LUCILLE on presentation creatinine up to 7.6, baseline around 1.8-2.1, received fluid resuscitation, bicarb, gradually condition improved, with resuscitation blood pressures improved, renal function gradually improved, C. difficile was tested was negative, PCR study was performed for E. coli, Salmonella culture, Campylobacter PCR was negative. He was discharged home with ciprofloxacin and Flagyl on 01/21, returned 3 days later on 01/24 with recurrent presentation with hypovolemic shock after a presyncopal episode at home, presentation with mottling of lower extremities, persistent diarrhea, abdominal discomfort, LUCILLE on CKD, creatinine up to 4.4, received fluid resuscitation, albumin infusions, antibiotics were switched to Cipro and Flagyl IV. CT scan repeated showed persistent findings of enterocolitis, fluid in small bowel, edema about distal small bowel as well as sigmoid colon. 4 cm collection of fluid in the right posterior lateral pelvis overlying hip suggestive of seroma similar to prior exam. Perinephric edema suggestive of renal insufficiency, other incidental findings. Lactic acidosis on presentation 4.4, improved to 1.4 with resuscitation Doloris persistent metabolic acidosis secondary to diarrhea and renal dysfunction. With fluid boluses, albumin blood pressures improved, renal function has shown gradual improvement. However, with persistent enterocolitis symptoms, abdominal pain relationally operative, subsequent lower, cramping, persistent diarrhea with liquid greenish stool with mixed and solids appearing like sloughed mucosa/tissue (sent for pathology). He had not had a screening colonoscopy in over a decade due to advancement in age. Has had an EGD more recently. C. difficile was repeated on presentation, has just come back negative. Additionally studies were sent for cryptococcal and Giardia antigens which had just come back negative. As well as sent for ova and parasites, with the study still pending. He has not had recurrence of presyncopal episodes, but was noted by his intermittently having some repetitive lipsmacking movements, some slow repetitive movements of his hands, some unusual appearing gaze deviation, all of the symptoms are momentary, resolving spontaneously within seconds, he remains alert, although has been noted to have some hallucinations as well. MRI of the brain was requested for additional assessment. Tramadol was stopped. Ciprofloxacin was stopped. Switched to Zosyn which she tolerated well, despite history of penicillin allergy. Continued on Flagyl. Overnight he has had some additional worsening, with abdominal distention, worsened pain, CT abdomen pelvis performed overnight with report of moderately dilated small bowel loops containing gas/fluid levels indicating small bowel obstruction. Transition zone is not visible. NG tube was placed with LIS for decompression, so far has produced 1400 cc output. This morning labs with new leukocytosis 15.76. He has had mild tachycardia 90s-low 100s. Blood pressure lower this morning 97/56. Again some mottling around the knees. He has been continued on albumin infusions and renal function had gradually improved down to 2.5 yesterday, this morning creatinine worsened up to 2.7. In addition to albumin he is restarted on IV fluid infusion with improvement in blood pressures, mottling. CT angiogram abdomen pelvis performed after discussion of risks including contrast nephropathy, as well as allergic reaction as he has history of shellfish allergy, underwent the scan uneventfully, CTA showed no vascular abnormality. Fluid collection in the upper lateral thigh present previously and likely postsurgical seroma. No evidence of wall thickening. Blood cultures negative from both prior admission as well as current admission. As he is having persistent enterocolitis of unidentified etiology so far unimproved without response to antibiotic we discussed further seeking transfer to higher level facility with him and his and they expressed preference for [facility] where he is currently accepted for additional assessment by gastroenterology +/- ID pending callback for bed opening. Please update the call center in case of any additional changes in his condition pre-transfer. Physical Exam Narrative: Accompanied by his . Const: COMMON NORMALS: patient oriented x3 and alert GENERAL APPEARANCE: cooperative ORIENTATION/CONSCIOUSNESS: Yes awake HENMT: COMMON NORMALS: oropharynx normal Neck/C-Spine: COMMON NORMALS: no JVD Resp: COMMON NORMALS: normal respiratory effort and clear to auscultation bilaterally AUSCULTATION: clear to auscultation bilaterally Cardio: COMMON NORMALS: no JVD, regular rhythm, S1 normal heart sound present, S2 normal heart sound present and No murmurs present (Cardio) RHYTHM: regular rhythm HEART SOUNDS: S1 normal heart sound present and S2 normal heart sound present GI: COMMON NORMALS: Normal to inspection, nondistended, normoactive bowel sounds present and Soft to palpation PALPATION: Yes Soft to palpation OTHER: Tender lower abdomen and left side. Extremity: COMMON NORMALS: no joint enlargement and no pedal edema OTHER: LLE in cast, toes warm, appear perfused. Moving toes. Neuro: COMMON NORMALS: patient oriented x3 and moves all extremities SENSORIUM/ORIENTATION: Yes alert Skin: COMMON NORMALS: no rashes or lesions noted GENERAL SKIN EXAM: no rashes or lesions noted OTHER: Mild mottling around knees Urinary Catheter Management: Shipman: Cath Placed During This Visit: yes Reason for Continuing Indwelling Catheter: Other Urinary Catheter Date of Insertion: 01/26/23 Urinary Catheter Time of Insertion: 18:00 TS Data Studies Completed and Pending Pending at discharge Category Date Time Status Basic Metabolic Panel AM LABS Lab 01/29/23 04:00 Ordered Basic Metabolic Panel AM LABS Lab 01/30/23 04:00 Ordered Blood Culture Stat Lab 01/24/23 15:17 Results Complete Blood Count w/Auto AM LABS Lab 01/29/23 04:00 Ordered Complete Blood Count w/Auto AM LABS Lab 01/30/23 04:00 Ordered Miscellaneous Test Routine Lab 01/27/23 06:28 Received OVA and Parasites, Conc and PE Routine Lab 01/24/23 13:26 Received MR head wo con* [id number] Routine MRI 01/28/23 08:00 Ordered Completed Studies During Hospitalization Category Date Time Status CT abdomen pelvis wo con [id number] Stat Cat Scan 01/24/23 19:[address] abdomen pelvis wo con [id number] Stat Cat Scan 01/28/23 04:24 Completed CTA abdomen pelvis [CT angio abdomen pelvis [id number]] Stat Cat Scan 01/28/23 10:01 Completed CXRP [XR chest 1V portable [id number]] Stat Exams 01/28/23 08:48 Completed XR chest 1V portable [id number] Stat Exams 01/24/23 13:48 Completed Laboratory Last Values WBC 15.76 10^3/uL (3.29-11.43) H 01/28/23 04:56 RBC 3.63 10^6/uL (3.85-5.65) L 01/28/23 04:56 Hgb 10.30 g/dL (11.27-16.99) L 01/28/23 04:56 Hct 32.2 % (37-53) L 01/28/23 04:56 MCV 88.7 fl (82-101) 01/28/23 04:56 MCH 28.4 pg (27-33) 01/28/23 04:56 MCHC 32.0 g/dL (30-55) 01/28/23 04:56 RDW 16.2 % (12.1-15.1) H 01/28/23 04:56 Plt Count 293 10^3/cmm (157-399) 01/28/23 04:56 MPV 10.4 fL (7.4-10.4) 01/28/23 04:56 Neut % (Auto) 78.6 % 01/28/23 04:56 Lymph % (Auto) 10.9 % 01/28/23 04:56 Ada % (Auto) 8.6 % 01/28/23 04:56 Eos % (Auto) 0.0 % 01/28/23 04:56 Baso % (Auto) 0.4 % 01/28/23 04:56 Neut # (Auto) 12.38 10^3/uL (1.8-7.7) H 01/28/23 04:56 Lymph # (Auto) 1.7 10^3/uL (0.8-4.8) 01/28/23 04:56 Ada # (Auto) 1.4 10^3/uL (0.2-0.9) H 01/28/23 04:56 Eos # (Auto) 0.0 10^3/uL (0.0-0.8) 01/28/23 04:56 Baso # (Auto) 0.1 10^3/uL (0.0-0.1) 01/28/23 04:56 Nucleated RBC % (auto) 0 % 01/28/23 04:56 Total Counted 100 (0-100) 01/24/23 14:08 Atypical Lymphs % 1.0 % (0-5) 01/24/23 14:08 Absolute Neutrophils 8.2 10^3/cmm (1.4-6.5) H 01/24/23 14:08 Segmented Neutrophils 71 % 01/24/23 14:08 Abs Segm Neuts (Man) 7.9 10/cmm (1.6-7.1) H 01/24/23 14:08 Band Neutrophils 2.0 % 01/24/23 14:08 Abs Band Neuts (Man) 0.2 10^3/cmm (0.0-1.2) 01/24/23 14:08 Absolute Lymphocytes 1.9 10^3/cmm (1.2-3.4) 01/24/23 14:08 Lymphocytes (Manual) 16 % 01/24/23 14:08 Monocytes (Manual) 7.0 % 01/24/23 14:08 Absolute Monocytes 0.8 10^3/cmm (0.1-0.6) H 01/24/23 14:08 Eosinophils (Manual) 0 % 01/24/23 14:08 Absolute Eosinophils 0.0 10^3/cmm (0.0-0.7) 01/24/23 14:08 Basophils (Manual) 0.0 % 01/24/23 14:08 Absolute Basophils 0.0 10^3/cmm (0.0-0.2) 01/24/23 14:08 Metamyelocytes 3.0 % 01/24/23 14:08 Nucleated RBCs # 0.0 /100WBC 01/28/23 04:56 Platelet Estimate Increased (Normal) 01/24/23 14:08 Giant Platelets 1+ H 01/24/23 14:08 [place] Cells 1+ H 01/24/23 14:08 Sodium 140 mmol/L (136-145) 01/28/23 04:56 Potassium 3.7 mmol/L (3.5-5.1) 01/28/23 04:56 Chloride 108 mmol/L (98-107) H 01/28/23 04:56 Carbon Dioxide 12 mmol/L (22-29) L 01/28/23 04:56 Anion Gap 23.7 (5-19) H 01/28/23 04:56 BUN 33 mg/dL (8-23) H 01/28/23 04:56 Creatinine 2.7 mg/dL (0.7-1.2) H 01/28/23 04:56 GFR Calculation Not Reportable 01/28/23 04:56 Glucose 149 mg/dL (65-115) H 01/28/23 04:56 POC Glucose 95 mg/dL (70-110) 01/28/23 16:49 Calculated Osmolality 300 mOsm/kg (285-295) H 01/28/23 04:56 Lactic Acid 4.2 mmol/L (0.5-2.2) H* 01/24/23 14:08 Lactic Acid (Sepsis) 1.4 mmol/L (0.5-2.2) 01/24/23 17:04 Calcium 8.2 mg/dL (8.5-10.5) L 01/28/23 04:56 Magnesium 2.0 mg/dL (1.7-2.3) 01/27/23 04:37 Total Bilirubin 0.5 mg/dL (0.15-1.2) 01/25/23 04:40 AST 31 U/L (0-40) 01/25/23 04:40 ALT 11 U/L (0-41) 01/25/23 04:40 Alkaline Phosphatase 282 U/L (40-130) H 01/25/23 04:40 Troponin T Baseline 74 ng/L (0-15) H 01/24/23 14:08 Troponin T 120 Minute 71.37 ng/L (0-15) H 01/24/23 16:10 Delta Troponin T -2.63 ABS# (0-10) L 01/24/23 16:10 Troponin T Hi Sens 6Hr 60.66 ng/L (0-15) H 01/24/23 20:12 Troponin T Hi Sens 6Hr Delta -13.34 ng/L (0-12) L 01/24/23 20:12 NT-Pro-B Natriuret Pep 1234 pg/mL (0-450) H 01/24/23 14:08 Total Protein 4.2 g/dL (6.6-8.7) L 01/25/23 04:40 Albumin 2.1 g/dL (3.5-5.2) L 01/25/23 04:40 Globulin 2.1 g/dL (1.3-4.6) 01/25/23 04:40 Procalcitonin 4.24 ng/mL (0-0.5) H 01/24/23 14:08 Urine Color Yellow (Yellow) 01/24/23 16:04 Urine Appearance Sl hazy (CLEAR) A 01/24/23 16:04 Urine pH 5 (5-7) 01/24/23 16:04 Ur Specific [place] 1.020 (1.005-1.030) 01/24/23 16:04 Urine Protein Trace (Negative) 01/24/23 16:04 Urine Glucose (UA) Norm (Normal) 01/24/23 16:04 Urine Ketones Negative (Negative) 01/24/23 16:04 Urine Blood Neg (Negative) 01/24/23 16:04 Urine Nitrate Negative (Negative) 01/24/23 16:04 Urine Bilirubin 1+ (Negative) H 01/24/23 16:04 Urine Urobilinogen Norm mg/dL (Negative) 01/24/23 16:04 Ur Leukocyte Esterase 1+ (Negative) H 01/24/23 16:04 Urine RBC 0-4 /hpf (0-2) H 01/24/23 16:04 Urine WBC 0-4 /hpf (0-5) H 01/24/23 16:04 Ur Squamous Epith Cells 0-4 /hpf (0-5) H 01/24/23 16:04 Ur Transition Epith Cell 0-4 /hpf 01/24/23 16:04 Amorphous Sediment 1+ /hpf 01/24/23 16:04 Urine Bacteria Trace /hpf (NONE) 01/24/23 16:04 Hyaline Casts 10-15 /lpf H 01/24/23 16:04 Urine Mucus Trace /hpf 01/24/23 16:04 Stl Cryptosporidium Ag See note 01/24/23 15:51 Stl Giardia Antigen See note 01/24/23 15:51 C. difficile Tox (PCR) Not detected (NOT DETECTED) 01/24/23 15:51 Radiology Impressions Abdomen/Pelvis CT 01/28/23 04:24 IMPRESSION: 1. Small bowel obstruction. 2. Small bilateral pleural effusions and minimal ascites. 3. The findings are new since 01/24/2022. Chest X-Ray 01/28/23 08:48 IMPRESSION: 1. Enteric tube terminates over the area of the stomach. 2. Allowing for low lung volumes, no acute cardiopulmonary findings. Abdomen/Pelvis CTA 01/28/23 10:01 IMPRESSION: 1. No vascular abnormality. 2. Numerous additional findings, stable since earlier today. Recent Clincial Data Last Vital Signs Temp 98.3 F 01/28/23 15:45 Pulse 115 H 01/28/23 15:45 Resp 17 01/28/23 15:45 BP 122/74 01/28/23 15:45 Pulse Ox 95 01/28/23 15:45 O2 Del Method Room Air 01/28/23 15:45 Vital Signs Temp Pulse Resp BP Pulse Ox O2 Del Method 01/28/23 15:45 98.3 F 115 H 17 122/74 95 Room Air 01/28/23 13:28 102/61 01/28/23 12:00 98.2 F 87 16 97/56 96 Room Air 01/28/23 07:53 97.5 F L 101 H 17 148/83 96 Room Air Intake & Output/Weight 01/26/23 01/27/23 01/28/23 01/29/23 06:59 06:59 06:59 06:59 Intake Total 3873.333 / 3873.333 2170 / 2170 940 / 940 400 / 400 Output Total 500 / 500 475 / 475 1750 / 1750 Balance 3873.333 / 3873.333 1670 / 1670 465 / 465 -1350 / -1350 Weight 88.451 kg 88.451 kg 88.451 kg Vitals Last Vital Signs Temp 98.3 F 01/28/23 15:45 Pulse 115 H 01/28/23 15:45 Resp 17 01/28/23 15:45 BP 122/74 01/28/23 15:45 Pulse Ox 95 01/28/23 15:45 O2 Del Method Room Air 01/28/23 15:45 TS Medications Medications Acetaminophen (Acetaminophen 325 Mg Tablet) 650 mg PO Q6H PRN PRN Reason: Mild/Mod Pain Or Temp >/= 101 Aspirin (Aspirin 81 Mg Ec Tablet) 81 mg PO QAM [facility] Last Admin: 01/28/23 06:09 Dose: 81 mg Benzocaine (Cetylpyridinium Lozenge) 1 each MUCOUS MEM Q2H PRN PRN Reason: SORE THROAT Last Admin: 01/25/23 18:06 Dose: 1 each Dextrose (Dextrose 50% Syringe 50 Ml) 25 ml IVP ONCE PRN; Protocol PRN Reason: hypoglycemia protocol Dextrose (Dextrose 50% Syringe 50 Ml) 50 ml IVP PRN PRN; Protocol PRN Reason: hypoglycemia protocol Duloxetine HCl (Duloxetine 30 Mg Capsule) 30 mg PO QAM [facility] Last Admin: 01/28/23 06:09 Dose: 30 mg Metronidazole (Flagyl Iv) 500 mg in 100 mls @ 100 mls/hr IV Q8H M[facility]O; Protocol Last Infusion: 01/28/23 13:56 Dose: Infused Albumin Human (Albumin) 25 g in 100 mls @ 60 mls/hr IV Q8H MANDO Last Infusion: 01/28/23 16:39 Dose: Infused Dextrose (D5w) 500 mls @ 0 mls/hr IV ONCE PRN; Protocol PRN Reason: Adult Acute Hypoglycemia Prot Piperacillin Sod/Tazobactam (Sod 3.375 gm/ Sodium Chloride) 50 mls @ 12.5 mls/hr IV Q8H MANDO; Protocol Last Infusion: 01/28/23 17:22 Dose: Infused Lactated Ringer's (Lactated Ringers) 1,000 mls @ 100 mls/hr IV .Q10H MANDO Last Admin: 01/28/23 10:20 Dose: 100 mls/hr Insulin Human Lispro (Insulin Lispro 100 Unit/1 Ml) 0 unit SUBCUT WM&BEDTIME MANDO; Protocol Last Admin: 01/28/23 17:21 Dose: Not Given Levothyroxine Sodium (Levothyroxine 50 Mcg Tablet) 50 mcg PO QAM [facility] Last Admin: 01/28/23 06:09 Dose: 50 mcg Non-Formulary Medication: Omeprazole 20 Mg 0 each PO BID [facility] Last Admin: 01/28/23 17:49 Dose: Not Given Nystatin (Nystatin 100,000 Unit/Ml Udc 5 Ml) 400,000 unit PO QID [facility] Last Admin: 01/28/23 17:49 Dose: 400,000 unit Ondansetron HCl (Ondansetron 2 Mg/Ml Sdv 2 Ml) 4 mg IVP Q8H PRN PRN Reason: vomiting, or N/V if npo Ropinirole HCl (Ropinirole 0.25 Mg Tablet) 0.5 mg PO BEDTIME [facility] Last Admin: 01/27/23 21:26 Dose: 0.5 mg Zinc Oxide (Zinc Oxide Oint 30 Gm) 1 applic TOPICAL TID [facility] Last Admin: 01/28/23 14:57 Dose: 1 applic Discontinued Medications Diphenhydramine HCl (Diphenhydramine 50 Mg/Ml Sdv 1ml) 25 mg IVP ONCE ONE Stop: 01/28/23 13:43 Last Admin: 01/28/23 13:52 Dose: 25 mg Sodium Chloride (Sodium Chloride 0.9%) 1,000 mls @ 999 mls/hr IV .Q1H1M ONE Stop: 01/24/23 14:48 Last Infusion: 01/24/23 15:40 Dose: Infused Sodium Chloride (Sodium Chloride 0.9%) 1,000 mls @ 999 mls/hr IV .Q1H1M ONE Stop: 01/24/23 16:31 Last Infusion: 01/24/23 17:19 Dose: Infused Lactated Ringer's (Lactated Ringers) 1,000 mls @ 999 mls/hr IV .Q1H1M ONE Stop: 01/24/23 19:31 Last Infusion: 01/24/23 19:47 Dose: Infused Metronidazole (Flagyl Iv) 500 mg in 100 mls @ 100 mls/hr IV ONCE ONE Stop: 01/24/23 19:40 Last Admin: 01/24/23 20:19 Dose: Not Given Levofloxacin/Dextrose (Levaquin-D5w) 500 mg in 100 mls @ 100 mls/hr IV ONCE ONE; Protocol Stop: 01/24/23 19:40 Last Admin: 01/24/23 20:20 Dose: Not Given Ciprofloxacin/Dextrose (Cipro) 400 mg in 200 mls @ 200 mls/hr IV Q24H [facility]; Protocol Last Infusion: 01/26/23 21:55 Dose: Infused Magnesium Sulfate (Magnesium Sulfate Premix) 2 gm in 50 mls @ 50 mls/hr IV ONCE ONE Stop: 01/24/23 23:50 Last Infusion: 01/25/23 02:02 Dose: Infused Lactated Ringer's (Lactated Ringers) 1,000 mls @ 100 mls/hr IV .Q10H [facility] Last Infusion: 01/26/23 12:53 Dose: Infused Magnesium Sulfate (Magnesium Sulfate Premix) 2 gm in 50 mls @ 50 mls/hr IV ONCE ONE Stop: 01/25/23 13:06 Last Infusion: 01/25/23 15:38 Dose: Infused Magnesium Sulfate (Magnesium Sulfate Premix) 2 gm in 50 mls @ 50 mls/hr IV ONCE ONE Stop: 01/26/23 09:56 Last Infusion: 01/26/23 12:53 Dose: Infused Iohexol (Iohexol 350 Mg/Ml 500 Ml Btl (Per Ml)) 0 ml IV ONCE ONE Stop: 01/28/23 14:39 Last Admin: 01/28/23 14:38 Dose: 100 ml Non-Formulary Medication (Zinc Oxide) 1 applic TOPICAL TID [facility] Last Admin: 01/25/23 03:36 Dose: Not Given Non-Formulary Medication (Duloxetine) 30 mg PO QAM [facility] Last Admin: 01/25/23 05:23 Dose: Not Given Non-Formulary Medication (Ropinirole) 0.5 mg PO BEDTIME [facility] Last Admin: 01/25/23 04:41 Dose: Not Given Potassium Chloride (Potassium Chloride Oral Liq 20 Meq/15 Ml Udc) 40 meq PO ONCE ONE Stop: 01/25/23 07:50 Last Admin: 01/25/23 09:08 Dose: 40 meq Potassium Chloride (Potassium Chloride Oral Liq 20 Meq/15 Ml Udc) 40 meq PO ONCE ONE Stop: 01/26/23 11:55 Last Admin: 01/26/23 12:53 Dose: Not Given Potassium Chloride (Potassium Chloride Oral Liq 20 Meq/15 Ml Udc) 40 meq PO ONCE ONE Stop: 01/26/23 12:56 Last Admin: 01/26/23 13:29 Dose: 40 meq Potassium Chloride (Potassium Chloride Oral Liq 20 Meq/15 Ml Udc) 40 meq PO ONCE ONE Stop: 01/27/23 07:48 Last Admin: 01/27/23 08:45 Dose: 40 meq Tramadol HCl (Tramadol 50 Mg Tablet) 0 mg PO BID [facility] Last Admin: 01/26/23 17:11 Dose: Not Given Tramadol HCl (Tramadol 50 Mg Tablet) 0 mg PO BID PRN PRN Reason: PAIN Allergies Penicillins Allergy (Severe, Verified 01/24/23 15:39) ALGY-Hives Patient tolerated Ancef 2gm test dose. shellfish derived Allergy (Severe, Verified 01/24/23 15:39) ALGY-Hives esomeprazole [From Nexium] Allergy (Intermediate, Verified 01/24/23 15:39) ALGY-Hives empagliflozin [From Jardiance] Allergy (Verified 01/24/23 15:39) Unknown Neoprene Allergy (Severe, Uncoded 01/14/23 09:19) ALGY-Hives Home Medications duloxetine 30 mg capsule,delayed release sprinkle 30 mg PO QAM 07/12/19 [History Confirmed 01/24/23] pravastatin 80 mg tablet 80 mg PO BEDTIME 07/12/19 [History Confirmed 01/24/23] sodium bicarbonate 650 mg tablet 650 mg PO TID 07/12/19 [History Confirmed 01/24/23] ropinirole 0.5 mg tablet 0.5 mg PO BEDTIME 06/17/21 [History Confirmed 01/24/23] tramadol 50 mg tablet See Rx Instructions PO BID 07/05/22 [History Confirmed 01/24/23] prednisone 10 mg tablet 10 mg PO DAILY PRN joint pain #90 tabs 12/06/22 [Rx Confirmed 01/24/23] AFO #2 ea 12/29/22 [Rx Confirmed 01/24/23] bedside comode #1 ea 12/29/22 [Rx Confirmed 01/24/23] wheel chair #1 ea 12/29/22 [Rx Confirmed 01/24/23] aspirin 81 mg tablet,delayed release 81 mg PO QAM 01/14/23 [History Confirmed 01/24/23] zinc oxide 30.6 % topical cream 1 applic topical TID skin irritation #92 grams 01/19/23 [Rx Confirmed 01/24/23] cholestyramine (with sugar) 4 gram powder for susp in a packet 4 g PO BID #10 ea 01/21/23 [Rx Confirmed 01/24/23] levofloxacin 750 mg tablet 750 mg PO EVERY OTHER DAY 8 days #4 tabs 01/21/23 [Rx Confirmed 01/24/23] loperamide 2 mg capsule 2 mg PO QID PRN Diarrhea #30 caps 01/21/23 [Rx Confirmed 01/24/23] metoprolol tartrate 25 mg tablet 12.5 mg PO BID #60 tabs 01/21/23 [Rx Confirmed 01/24/23] metronidazole 500 mg tablet 500 mg PO TID #15 tabs 01/21/23 [Rx Confirmed 01/24/23] allopurinol 100 mg tablet 200 mg PO QAM 01/24/23 [History Confirmed 01/24/23] leflunomide 20 mg tablet 20 mg PO QAM 01/24/23 [History Confirmed 01/24/23] levothyroxine 50 mcg tablet 50 mcg PO QAM 01/24/23 [History Confirmed 01/24/23] omeprazole 20 mg tablet,delayed release 20 mg PO BID 01/24/23 [History Confirmed 01/24/23] sulfasalazine 500 mg tablet 500 mg PO BID 01/24/23 [History Confirmed 01/24/23] Discharge Plan Discharge Patient Disposition: Home Condition: Stable Prescriptions: No Action duloxetine 30 mg capsule, delayed rel sprinkle 30 mg PO QAM pravastatin 80 mg tablet 80 mg PO BEDTIME sodium bicarbonate 650 mg tablet 650 mg PO TID tramadol 50 mg tablet See Rx Instructions PO BID Rx Instructions: take 3 tablets (150mg) po in the AM and 2 tabs (100mg) in the PM ropinirole 0.5 mg tablet 0.5 mg PO BEDTIME prednisone 10 mg tablet 10 mg PO DAILY PRN (Reason: joint pain) Qty: 90 1RF (DME) AFO See Rx Instructions .Route .MEDSUPPLY Qty: 2 0RF Rx Instructions: As directed made by the mina yadav (ISABELLA) bedside comode See Rx Instructions .Route .MEDSUPPLY Qty: 1 0RF Rx Instructions: As directed (DME) wheel chair See Rx Instructions .Route .MEDSUPPLY Qty: 1 0RF Rx Instructions: As directed aspirin 81 mg Tablet,Delayed Release (Dr/Ec) 81 mg PO QAM zinc oxide 30.6 % cream 1 applic topical TID Qty: 92 2RF loperamide 2 mg Capsule 2 mg PO QID PRN (Reason: Diarrhea) Qty: 30 0RF cholestyramine (with sugar) 4 gram Powder In Packet 4 g PO BID Qty: 10 0RF levofloxacin 750 mg tablet 750 mg PO EVERY OTHER DAY 8 Days Qty: 4 0RF metronidazole 500 mg tablet 500 mg PO TID Qty: 15 0RF metoprolol tartrate 25 mg tablet 12.5 mg PO BID Qty: 60 0RF levothyroxine 50 mcg tablet 50 mcg PO QAM sulfasalazine 500 mg tablet 500 mg PO BID allopurinol 100 mg tablet 200 mg PO QAM leflunomide 20 mg tablet 20 mg PO QAM omeprazole 20 mg tablet,delayed release (DR/EC) 20 mg PO BID Referrals: Tiarra Armendariz FNP [Primary Care Provider] - Patient Instructions: Opioid Safety Transfer Attestations Time Spent in Transfer Care: greater than 30 min Quality Metrics Clinical Quality Measures [ No reported AMI, CVA or VTE this stay] Coding Level of Care Code 05810 Total time (in minutes) for Discharge: 65 Diagnoses Colitis K52.9 Acute hypotension I95.9 Acute kidney injury superimposed on chronic kidney disease N17.9; N18.9 Acute dehydration E86.0 Near syncope R55
[2023-01-28 22:36] LABS: Glucose Point of Care 81 mg/dL (70-110)
[2023-01-29 01:01] VITALS: BP 163/75; PULSE 117; RESP 16; TEMP 36.8; O2SAT 96
[2023-01-29] MEDS: piperacillin-tazobactam 3.375 GM in sodium chloride 0.9% (plus) 50 ML IV (04:37)
[2023-01-29] MEDS: metroNIDAZOLE IV 500 MG/100 ML PREMIX 100 MG IV (04:38)
[2023-01-29 04:47] VITALS: BP 145/74; PULSE 111; RESP 17; TEMP 36.9; O2SAT 96
--- NOTE | 2023-01-29 04:50 | PC.NURSE ---
This nurse went to give medications. Pt has a respiratory rate of 22, increased work of breathing, and increased accessory muscle use. Upon assessment his left lower quadrant felt distended upon palpation; at the beginning of the shift only his upper quadrants felt distended. Pt had a bowel movement; per the aide it was green in appearance with chunks that had a rubbery texture.
[2023-01-29 05:03] LABS: Basophils # 0.1 10^3/uL (0.0-0.1); Basophils % 0.5 %; Hematocrit 27.2 % (37-53); Lymphocytes # 1.7 10^3/uL (0.8-4.8); Mean Corpuscular HGB Conc 31.6 g/dL (30-55); Mean Corpuscular Hemoglobin 27.5 pg (27-33); Mean Corpuscular Volume 86.9 fl (82-101); Mean Platelet Volume 10.3 fL (7.4-10.4); Monocytes # 1.4 10^3/uL (0.2-0.9); Monocytes % 10.7 %; Neutrophils # 9.69 10^3/uL (1.8-7.7); Neutrophils % 73.7 %; Nucleated Red Blood Cells % 0 %; Platelet Count 287 10^3/cmm (157-399); Red Blood Count 3.13 10^6/uL (3.85-5.65); Red Cell Distribution Width 16.5 % (12.1-15.1); White Blood Count 13.14 10^3/uL (3.29-11.43)
--- NOTE | 2023-01-29 05:23 | XRR_ITS ---
PROCEDURE INFORMATION: Exam: XR Chest Exam date and time: 01/29/2023 6:32 AM Age: 77 years old Clinical indication: Device placement; Ng tube; Patient HX: Check S/P ng placement; Additional info: Ng tube placement TECHNIQUE: Imaging protocol: Radiologic exam of the chest. Views: 1 view. COMPARISON: CT angio abdomen pelvis [id number] 01/28/2023 2:11 PM FINDINGS: Tubes, catheters and devices: An NG tube is been inserted. The end hole is within the stomach; the side port is at the EG junction. Lungs: Minimal atelectasis at the lateral left lung base. Pleural spaces: Unremarkable. No pleural effusion. No pneumothorax. Heart/Mediastinum: Unremarkable. No cardiomegaly. Bones/joints: Bilateral hip replacement. XR/XR chest 1V portable [id number] IMPRESSION: NG tube insertion.
[2023-01-29 05:27] LABS: Anion Gap 22.4 (5-19); Blood Urea Nitrogen 35 mg/dL (8-23); Calcium 8.1 mg/dL (8.5-10.5); Carbon Dioxide 11 mmol/L (22-29); Chloride 113 mmol/L (98-107); Glucose 95 mg/dL (65-115); Osmolality Calculated 304 mOsm/kg (285-295); Potassium 3.4 mmol/L (3.5-5.1); Sodium 143 mmol/L (136-145)
[2023-01-29] MEDS: lactated ringers 1,000 ML 100 ML IV (07:02)
[2023-01-29] MEDS: albumin 25 G/100 ML BAG 60 G IV (07:02)
[2023-01-29 07:29] LABS: Reflex FDPQ test REFLEX FDP QUEST TES
[2023-01-29 07:34] LABS: Glucose Point of Care 99 mg/dL (70-110)
[2023-01-29 07:40] VITALS: BP 152/88; PULSE 122; RESP 22; TEMP 37.2; O2SAT 94
[2023-01-29 07:52] LABS: INR 2.17 (0.8-1.2)
[2023-01-29 07:53] LABS: Fibrinogen 492 mg/dL (174-498); Partial Thromboplastin Time 45.5 SECONDS (23.9-36.7)
[2023-01-29 08:00] LABS: LAB Peripheral Smear Sent for Review
[2023-01-29 08:01] LABS: Hematocrit 27.1 % (37-53); Retic Production Index 0.81; Reticulocyte % 1.2 % (0.5-2.0)
[2023-01-29 08:02] LABS: D Dimer 6.49 ug/mLFEU (0-0.59)
[2023-01-29 08:13] LABS: Lactate Dehydrogenase 277 U/L (135-225)
[2023-01-29 08:29] LABS: Lactate (Lactic Acid level) 1.4 mmol/L (0.5-2.2)
[2023-01-29] MEDS: zinc oxide oint 30 gm 1 APPLIC TOPICAL (09:27)
[2023-01-29 10:58] LABS: Glucose Point of Care 93 mg/dL (70-110)
[2023-01-29 12:00] VITALS: BP 158/84; PULSE 118; RESP 17; TEMP 36.8; O2SAT 96
--- NOTE | 2023-01-29 12:25 | PC.NURSE ---
report called to MICHELLE Lnych at [facility]
--- NOTE | 2023-01-29 13:06 | PC.NURSE ---
Patient just left facility via EMS.
--- NOTE | 2023-01-29 17:16 | P.PN_ITS ---
Subjective Subjective: Please see discharge summary from 01/28. Still been awaiting bed opening for transfer, accepted for transfer to [facility] as well as [facility]. Later this afternoon at [facility], where he transferred. He had a somewhat difficult night, he had woken up and then confused state pulled his IV causing blood to smear over himself and bedding. This morning there was some reddish admixture in the NG tubing and aspirate in the canister. Additionally reported some transiently worsened mottling this morning up to the abdomen although improved later in the morning during my assessment. He reported he is feeling better. He still confused, having hallucinations and abnormal movements/tremors/asterixis. Vitals/I&O/Wt Last Vital Signs Temp 98.3 F 01/29/23 12:00 Pulse 118 H 01/29/23 12:00 Resp 17 01/29/23 12:00 BP 158/84 01/29/23 12:00 Pulse Ox 96 01/29/23 12:00 O2 Del Method Room Air 01/29/23 12:00 01/29/23 01/29/23 01/29/23 06:59 14:59 22:59 Intake Total 1250 / 2711.667 150 / 150 Output Total 150 / 2100 300 / 300 Balance 1100 / 611.667 -150 / -150 Weight last 48 hrs Weight 84.397 kg Weight 88.451 kg Physical Exam Narrative: Accompanied by his . Const: COMMON NORMALS: patient oriented x3 and alert GENERAL APPEARANCE: cooperative ORIENTATION/CONSCIOUSNESS: Yes awake HENMT: COMMON NORMALS: oropharynx normal Neck/C-Spine: COMMON NORMALS: no JVD Resp: COMMON NORMALS: normal respiratory effort and clear to auscultation bilaterally AUSCULTATION: clear to auscultation bilaterally Cardio: COMMON NORMALS: no JVD, regular rhythm, S1 normal heart sound present, S2 normal heart sound present and No murmurs present (Cardio) RHYTHM: regular rhythm HEART SOUNDS: S1 normal heart sound present and S2 normal heart sound present GI: COMMON NORMALS: Normal to inspection, nondistended, normoactive bowel sounds present and Soft to palpation PALPATION: Yes Soft to palpation OTHER: Tender left side abdomen. Extremity: COMMON NORMALS: no joint enlargement and no pedal edema OTHER: LLE in cast, toes warm, appear perfused. Moving toes. Neuro: COMMON NORMALS: patient oriented x3 and moves all extremities SENSORIUM/ORIENTATION: Yes alert Skin: COMMON NORMALS: no rashes or lesions noted GENERAL SKIN EXAM: no rashes or lesions noted OTHER: Mild mottling around knees, mottling of thighs and lower abdomen resolved. Urinary Catheter Management: Shipman: Cath Placed During This Visit: yes Reason for Continuing Indwelling Catheter: Other Urinary Catheter Date of Insertion: 01/26/23 Urinary Catheter Time of Insertion: 18:00 Data 01/29/23 04:19 01/29/23 04:19 Micro: Microbiology 01/24/23 15:14 Blood Culture - Final Blood NO GROWTH AFTER 5 DAYS 01/24/23 15:17 Blood Culture - Final Blood NO GROWTH AFTER 5 DAYS A&P Assessment and plan (1) Colitis: This morning NGT suction was paused, decreased due to some reddish admixture in the gastric aspirate in the tubing and canister. Obtained DIC labs, does not quite fit DIC profile, although abnormal, INR noted 2.17, D-dimer 6.49, PT 24.9. Discussed with him and his . Concern may be whether he may progress to DIC. Additionally consideration including TTP/HUS, additional studies requested with peripheral smear, haptoglobin, LDH, reticulocytes. Haptoglobin is normal, LDH mildly elevated, overall studies not indicative of hemolysis on my interpretation. Additional loose stools with some mucolal slough this morning. Discussed with him and his , started empirically on p.o. vancomycin for now in case of C. difficile although has had 2 negative C. difficile studies. Discussed consideration of additional coverage with antifungal, Amphotericin, however, with concern for possible risks for now held off. Blood cultures reviewed, remaining negative. [facility] pending bed opening, discussed with family consideration of trying transfer to [place], discussed with hospitalist over at [place], accepted for transfer, but no beds there either so was placed on a waiting list. Lactic acid obtained, 1.4. Persistent metabolic acidosis secondary to diarrhea, LUCILLE. Reviewed vitals, CBC, some persistence of leukocytosis with neutrophilia, monocytosis. Giardia, Cryptosporidium antigen noted and returned negative. Repeat C. difficile was negative. Blood culture remains negative. Ova and parasite still pending. Stool mucosa slough/lumps sent to pathology pending. Discussed with him and his empiric antibiotic coverage, Zosyn, Flagyl, continue. Reviewed chemistry, hypokalemia, replace. Reviewed magnesium, normal. Will benefit from follow-up with colonoscopy for further assessment to exclude malignancy or other cause. Lower likelihood of ischemic bowel disease, continue to monitor and support blood pressure. Some tenderness in the lower abdomen, otherwise abdomen without rigidity. This has been doing better. Low threshold for additional imaging assessment. Hold leflunomide. Leflunomide can also cause/contribute to diarrhea. (2) Acute encephalopathy: Discussed with his , she stated him through the night, and he has had intermittent confusion, hallucinations, abnormal movements, tremors/asterixis, some intermittent abnormal gaze, possibly hallucination, could not exclude brief momentary seizure, although last seconds, he is awake through them. MRI of the brain was requested, so far has not been able to obtain it. Requested CT of the head today. (3) Acute hypotension: Continue fluid resuscitation, continue IVF, albumin. Shock so far has resolved. Blood pressure with improvement although soft. Continue albumin for now. Reviewed chemistry, noted gradually improving renal function. (4) Acute kidney injury superimposed on chronic kidney disease: Renal function reviewed, BUN, creatinine 33, 2.5 respectively, continues to gradually improve. Continue albumin infusions for now. Off IV fluid. Continue to monitor and support blood pressures. Suspect prerenal LUCILLE, with shock, hypovolemia. Received fluid resuscitation. Reviewed CT abdomen pelvis, no obstructive uropathy noted. Continue IVF infusion. Reassess renal function. At risk of electrolyte, acid- base abnormality. Reassess chemistry. (5) Acute dehydration: Secondary to tissue hypoperfusion with shock as above. My assessment lactic acid noted with improvement. (6) Near syncope: In the setting of hypovolemic shock as above. Plan Hypomagnesemia: Give magnesium supplementation. Recheck magnesium. Hypokalemia: Supplement potassium, support magnesium. Recheck chemistry. Moisture injury/excoriation: Family requesting Shipman catheter due to open wound. Over sacrum, buttocks, posterior/inner thighs. Large area. Continue zinc oxide/moisture barrier. Oropharyngeal candidiasis: Nystatin swish and swallow. Seronegative rheumatoid arthritis: Hold leflunomide, sulfasalazine. Recent left ankle repair: Following dislocation. Cast in place. Following with podiatry. Gout DM2: Accu-Cheks requested, SSI Attestations Medical Necessity Statement*: Transferred to [facility]. Diagnoses Colitis K52.9 Acute encephalopathy G93.40 Acute hypotension I95.9 Acute kidney injury superimposed on chronic kidney disease N17.9; N18.9 Acute dehydration E86.0 Near syncope R55
[2023-02-03 08:25] LABS: Fibrinogen Degradation Product 10 mcg/mL (LESS THAN 5)
== END 2023-01-29 13:11 | disposition short-term general hospital (02) | DRG 391 ==
LOC: ER 20:26 → MEDSURG 21:54
PROVIDERS: Admitting Provider Internal Medicine; Emergency Provider Internal Medicine; PCP Nurse Practitioner Family; Visit Provider Internal Medicine
DX: K52.9 Noninfective gastroenteritis and colitis, unspecified (principal); R57.1 Hypovolemic shock; E87.20 Acidosis, unspecified; N17.9 Acute kidney failure, unspecified; G93.40 Encephalopathy, unspecified; B37.89 Other sites of candidiasis; E83.42 Hypomagnesemia; E87.6 Hypokalemia; I12.9 Hypertensive chronic kidney disease with stage 1 through stage 4 chronic kidney disease, or unspecified chronic kidney disease; E11.22 Type 2 diabetes mellitus with diabetic chronic kidney disease; N18.9 Chronic kidney disease, unspecified; Z87.891 Personal history of nicotine dependence; M10.9 Gout, unspecified; E78.5 Hyperlipidemia, unspecified; E03.9 Hypothyroidism, unspecified; M06.042 Rheumatoid arthritis without rheumatoid factor, left hand; M06.041 Rheumatoid arthritis without rheumatoid factor, right hand; J44.9 Chronic obstructive pulmonary disease, unspecified; E86.0 Dehydration
CPT/HCPCS: 36415; 36416; 51702; 71045; 74174; 74176; 80048; 80053; 80503; 81001; 82962; 83010; 83605; 83615; 83735; 83880; 84145; 84484; 85007; 85014; 85025; 85045; 85362; 85378; 85384; 85610; 85730; 87040; 87177; 87209; 87328; 87329; 87493; 88307; 93005; 93010; 96365; 96367; 99285; J0744; J1200; J2543; J3475; J3490; J7030; J7120; P9046; Q9967